=== PATIENT | female | born 1965 | race Caucasian/White ===

== ENCOUNTER 2021-08-19 10:35 | Emergency (ER) | payer BC, SELFPAY ==
--- NOTE | ~2021-08-19 | US_ITS ---
EXAMINATION:US venous doppler LE LT INDICATION:Left leg pain TECHNIQUE: Multiple grayscale, color flow and Doppler images of the left lower extremity deep venous systems were obtained and reviewed. COMPARISON:No prior studies for comparison. FINDINGS: The common femoral, superficial femoral and popliteal veins demonstrate normal respiratory variation, augmentation and compressibility. Color flow is also seen within the posterior tibial, pe roneal, greater saphenous and profunda veins. IMPRESSION: 1: No lower extremity deep venous thrombosis. Reviewed, dictated and finalized at location A.
--- NOTE | ~2021-08-19 | CT_ITS ---
EXAMINATION: CT abdomen pelvis wo con DATE: 08/19/2021 12:15 INDICATION: Suprapubic abdominal pain TECHNIQUE: Computed tomography (CT) of the abdomen and pelvis was performed without intravenous contr ast. The dose-length product was 362.40 mGy-cm. Automated exposure control and iterative reconstructi on technique were employed. COMPARISON: None. FINDINGS: There is calcified granuloma in the left lower lobe. Heart size normal. No significant pleu ral or pericardial effusion. There are calcified granulomas of the spleen. The liver, pancreas, adren al glands and kidneys are unremarkable. No renal/ureteral stones or hydronephrosis. Normal appendix. Nonobstructive bowel gas pattern. No significant vascular abnormality. No lymphadenopathy. There is a urachal remnant in the bladder. There is mild lumbar spondylosis. No free air or free fluid. IMPRESSION: 1. No acute abdominal abnormality. Reviewed, dictated and finalized at location A.
[2021-08-19 10:36] VITALS: BP 146/71; PULSE 96; RESP 18; TEMP 36.3; O2SAT 99
--- NOTE | 2021-08-19 10:49 | ED.GENADULT ---
HPI - General Adult General Chief complaint: Unspecified Stated complaint: woke up beet red, feel horrible Time Seen by Provider: 08/19/21 10:42 History of Present Illness HPI narrative: Patient is a 55-year-old female here for evaluation of a diffuse rash this morning. Patient states that she woke up and noted that her face, chest and back were diffusely red. The rash is not painful or or pruritic. Denies new soaps, detergents, medications, sick contacts, exposure to ticks or outdoors. Additionally, she feels fatigued, flushed and nauseous with some suprapubic abdominal pain which she describes as a cramp. Denies fevers, chills, vomiting. Patient did have spinal fusion procedure 10 days ago, had recent follow up and was told she was healing well. States she was supposed to have an ultrasound of the left lower extremity yesterday to rule out blood clot as she has been having some left calf cramping and pain, but the study was not completed due to scheduling issues. Patient is in menopause; denies history of hot flashes. She was previously taking hormone replacement therapy but stopped this a while ago. Related Data Home Medications Medication Instructions Recorded Confirmed losartan 50 mg tablet 50 mg PO DAILY 07/20/20 07/20/20 progesterone micronized 200 mg 200 mg PO QHS 07/20/20 07/20/20 capsule rosuvastatin 5 mg tablet 5 mg PO DAILY 07/20/20 07/20/20 Allergies Allergy/AdvReac Type Severity Reaction Status Date / Time meperidine [From Demerol] Allergy Unknown Unknown Verified 07/25/20 12:18 Review of Systems Review of Systems: Gen: Reports fatigue Eyes: Denies eye pain or visual change ENT: Denies congestion Respiratory: Denies shortness of breath or cough CV: Denies chest pain or palpitations GI: Reports nausea. reports abdominal pain, emesis or diarrhea : denies burning, urgency, frequency or hematuria Musculoskeletal: Denies back pain or muscle pain Neuro: Denies numbness, tingling, weakness or focal weakness Skin: Reports rash 10 point review of systems negative, other than as per history of present illness, past medical history and other positives and review of systems PMFSH Family History Family History Mother Hypertension Heart disease Cerebrovascular accident Sibling Ovarian cancer Grandparent Breast cancer Bone cancer Heart disease Cerebrovascular accident Grandparent Hypertension Thyroid disorder Social History Social History (System 07/25/20 @ 12:18 by Shelli Sierra) Smoking status: Current every day smoker Tobacco type: cigarettes Alcohol intake: never Substance use: current Exam Narrative: APPEARANCE: Uncomfortable appearing. EYES: EOMI HEENT: Normocephalic, atraumatic, OMM. No airway swelling. Dentures in place. RESPIRATORY: No respiratory distress Clear to auscultation bilaterally with no rhonchi wheezing or rales. CARDIOVASCULAR: Regular rate and rhythm without murmurs rubs or gallops. ABDOMINAL: Soft, nontender, nondistended, no rebound or guarding MUSCULOSKELETAL: Moves all extremities. No clubbing, cyanosis or edema. NEURO: Awake and alert. Following commands, speech normal, no focal deficits SKIN: Patient has a diffuse erythematous macular rash to face and trunk that blanches. Non-tender to palpation. Surgical site over anterior neck is well-healed. Bilateral arms have similar erythematous rash. Negative Nikolsky sign. PSYCHIATRIC: Normal affect/mood Course Vital Signs Vital signs: Vital Signs Temperature 97.3 F L 08/19/21 10:36 Pulse Rate 96 08/19/21 10:36 Respiratory Rate 18 08/19/21 10:36 Blood Pressure 146/71 H 08/19/21 10:36 Pulse Oximetry 99 08/19/21 10:36 Oxygen Delivery Room Air 08/19/21 10:36 Temperature 97.3 F L 08/19/21 10:36 Pulse Rate 72 08/19/21 13:43 Respiratory Rate 18 08/19/21 13:43 Blood Pressure 142/72 H 08/19/21 13:43 Pulse Oxime
[2021-08-19 11:06] LABS: Basophils Percent Auto 0.1 % (0.2-1.2); Eosinophils Percent Auto 0.3 % (0-4.4); Hematocrit 39.5 % (37.0-47.0); Hemoglobin 13.3 g/dL (12.0-15.0); Immature Granulocyte Absolute 0.07 K/mm3 (0.00-0.031); Immature Granulocyte Percent A 0.5 % (0-0.5); Lymphocytes Absolute Auto 4.41 K/mm3 (0.9-3.2); Lymphocytes Percent Auto 30.8 % (18.3-44.2); Mean Corpuscular HGB Conc 33.7 g/dl (32-36); Mean Corpuscular Hemoglobin 32.9 pg (26-34); Mean Corpuscular Volume 97.8 fl (80-100); Mean Platelet Volume 10.1 fl (7.4-10.4); Monocytes Absolute Auto 0.5 K/mm3 (0.1-0.6); Monocytes Percent Auto 3.4 % (2.6-8.5); Neutrophils Absolute Auto 9.3 K/mm3 (1.3-6.7); Neutrophils Percent Auto 64.9 % (45.5-73.1); Platelet Count Result 331 k/mm3 (150-375); Red Blood Count 4.04 M/mm3 (4.2-5.4); Red Cell Distribution Width 13.9 % (11.5-14.5); White Blood Count 14.3 K/mm3 (4.5-10.0)
[2021-08-19] MEDS: ONDANSETRON HCL ODT 4 MG TABLET PO (11:10)
[2021-08-19 11:13] LABS: Alanine Aminotransferase 13 U/L (6-35); Albumin Level 3.9 g/dL (3.5-5.1); Alkaline Phosphatase 84 U/L (38-126); Anion Gap 8 mmol/L (8-16); Aspartate Amino Transferase 17 U/L (14-36); Bilirubin,Total 0.2 mg/dL (0.2-1.3); Blood Urea Nitrogen 9 mg/dL (7-17); Calcium 8.9 mg/dL (8.4-10.2); Carbon Dioxide 24 mmol/L (22-30); Chloride 107 mmol/L (98-107); Estimated CRCL calculation 75 ml/min; Estimated Glomerular Filt Rate > 60; Glucose 134 mg/dL (65-110); Potassium 3.5 mmol/L (3.4-5.0); Sodium 139 mmol/L (137-145)
[2021-08-19 11:34] LABS: Lactic Acid Reflex 1.3 mmol/L (0.7-2.0)
[2021-08-19] MEDS: predniSONE 20 MG TABLET 60 MG PO (11:50)
[2021-08-19] MEDS: diphenhydrAMINE HCl CAP 25 MG CAPSULE 50 MG PO (11:51)
[2021-08-19] MEDS: KETOROLAC 30 MG/ML VIAL (*BKC) IM (12:48)
[2021-08-19 12:50] VITALS: BP 141/75; PULSE 65; RESP 18; O2SAT 96
[2021-08-19 13:43] VITALS: BP 142/72; PULSE 72; RESP 18; O2SAT 99
== END 2021-08-19 13:44 | disposition home or self-care (01) ==
PROVIDERS: Physician Assistant; Emergency Provider Emergency Medicine; PCP Physician Assistant
DX: T78.40XA Allergy, unspecified, initial encounter (principal); F17.210 Nicotine dependence, cigarettes, uncomplicated; R10.30 Lower abdominal pain, unspecified; R25.2 Cramp and spasm
CPT/HCPCS: 36415; 74176; 80053; 83605; 85025; 93971; 96372; 99284; A9270; J1885; J7512

== ENCOUNTER 2021-10-09 09:22 | Emergency (ER) | payer BC, OTHER, SELFPAY ==
[2021-10-09] VITALS (11 sets, daily range): BP systolic 111–142; BP diastolic 51–69; PULSE 59–91; RESP 14–18; TEMP 36.6; O2SAT 98–100
--- NOTE | ~2021-10-09 | US_ITS ---
EXAMINATION: US pelvic complete w TV DATE: 10/09/2021 14:32 INDICATION: Vaginal bleeding. Tumor. TECHNIQUE: Multiple transabdominal and endovaginal sonographic images of the pelvis were obtained. COMPARISON: None. FINDINGS: The uterus measures 10.3 x 5.7 x 6.2 cm. The endometrial complex measures 8-9 mm in thickness is wit hin normal limits for postmenopausal female with hormone replacement therapy. 5 mm anechoic myometria l cyst posterior to the endometrial complex at the right side of the uterine fundus there appears to be some heterogeneity to the surrounding myometrium and asymmetric thickening relative to the more an terior myometrium which could be related to focal adenomyomatosis or sequela of a reported endometria l biopsy a few months prior. There are approximately 5 anechoic nabothian cysts at the posterior cerv ix the largest measuring up to 10 mm in maximal diameter. The lateral ovaries are not visualized. The re is no free fluid in the pelvis. IMPRESSION: 1. Endometrial complex thickness of 8-9 mm which is within normal limits post hormone replacement the rapy. 2. 5 mm cyst near the endometrial/myometrial junction at the posterior right side of the fundus where there appears to be mild relative thickening and heterogeneous echogenicity relative to the juxtapos ed anterior myometrium which raises the possibility of either focal adenomyomatosis or sequela of ear lier endometrial biopsy. Reviewed, dictated and finalized at location A. IMPRESSION: 1. Endometrial complex thickness of 8-9 mm which is within normal limits post h ormone replacement therapy. 2. 5 mm cyst near the endometrial/myometrial junction at the posterior right si de of the fundus where there appears to be mild relative thickening and heterog eneous echogenicity relative to the juxtaposed anterior myometrium which raises the possibility of either focal adenomyomatosis or sequela of earlier endometr ial biopsy.
[2021-10-09 09:37] LABS: Basophils Percent Auto 0.4 % (0.2-1.2); Eosinophils Absolute Auto 0.1 K/mm3 (0-0.3); Eosinophils Percent Auto 1.4 % (0-4.4); Hematocrit 37.9 % (37.0-47.0); Hemoglobin 12.6 g/dL (12.0-15.0); Immature Granulocyte Absolute 0.03 K/mm3 (0.00-0.031); Immature Granulocyte Percent A 0.3 % (0-0.5); Lymphocytes Absolute Auto 3.24 K/mm3 (0.9-3.2); Lymphocytes Percent Auto 32.7 % (18.3-44.2); Mean Corpuscular HGB Conc 33.2 g/dl (32-36); Mean Corpuscular Hemoglobin 33.2 pg (26-34); Mean Corpuscular Volume 99.7 fl (80-100); Mean Platelet Volume 10.5 fl (7.4-10.4); Monocytes Absolute Auto 0.5 K/mm3 (0.1-0.6); Monocytes Percent Auto 4.6 % (2.6-8.5); Neutrophils Percent Auto 60.6 % (45.5-73.1); Platelet Count Result 202 k/mm3 (150-375); Red Cell Distribution Width 14.5 % (11.5-14.5); White Blood Count 9.9 K/mm3 (4.5-10.0)
[2021-10-09 10:08] LABS: Beta HCG Quantitative < 2.39 mIU/ML
--- NOTE | 2021-10-09 13:18 | ED.FEMALEGU ---
HPI - Female Genitourinary General Chief complaint: Vaginal Bleeding Stated complaint: irregular vag bleeding Time Seen by Provider: 10/09/21 12:09 Source: patient Mode of arrival: ambulatory Limitations: no limitations History of Present Illness HPI Narrative: 55 years old white female presented to the ED with severe vaginal bleeding with blood clots over the last 2 weeks. Patient was seen by an [facility] at [facility] July 30, endometrial biopsy was negative for malignancy. Currently patient on progesterone 200 mg nightly she denies any fever, chills, nausea, vomiting, chest pain, shortness of breath, or lightheadedness. Related Data Home Medications Medication Instructions Recorded Confirmed losartan 50 mg tablet 50 mg PO DAILY 07/20/20 07/20/20 progesterone micronized 200 mg 200 mg PO QHS 07/20/20 07/20/20 capsule rosuvastatin 5 mg tablet 5 mg PO DAILY 07/20/20 07/20/20 Allergies Allergy/AdvReac Type Severity Reaction Status Date / Time meperidine [From Demerol] Allergy Unknown Unknown Verified 07/25/20 12:18 Review of Systems Review of Systems: All systems reviewed & are unremarkable except as noted in HPI and below PMFSH Family History Family History Mother Hypertension Heart disease Cerebrovascular accident Sibling Ovarian cancer Grandparent Breast cancer Bone cancer Heart disease Cerebrovascular accident Grandparent Hypertension Thyroid disorder Social History Social History Smoking status: Current every day smoker Tobacco type: cigarettes Alcohol intake: never Substance use: current Exam Narrative: General appearance: Well-developed, well-nourished Skin: Normal color Chest and respiratory: Airway patent, no respiratory distress, no accessory muscle use Heart: Regular rate/rhythm Abdomen: Soft, nontender, no organomegaly, quiet bowel sounds Vascular: Normal peripheral pulses, normal capillary refill. Musculoskeletal: Normal range of motion, nontender back Neurologic: Alert and oriented ?3, WILDLIFE ECOLOGIST is normal as tested, no gross motor deficit : Speculum Exam - Cervix: Cervical os closed Bimanual Exam- Adnexa, other: no masses Other: Slight vaginal bleeding, no blood clots, 2 saturated long Q-tips was enough to dry the vaginal pouch Course Course Emergency Course: Patient is hemodynamically stable, feeling comfortable to go home, agreed with the plan to follow-up with Dr. Ayala as outpatient. Consultations Consultation #1: Dr. Ayala Start estradiol, 2 mg every day until she sees me next week. Date: 10/09/21 Time: 15:29 Vital Signs Vital signs: Vital Signs Temperature 36.6 C 10/09/21 09:24 Pulse Rate 91 10/09/21 09:24 Respiratory Rate 18 10/09/21 09:24 Blood Pressure 142/56 H 10/09/21 09:24 Pulse Oximetry 100 10/09/21 09:24 Oxygen Delivery Room Air 10/09/21 09:24 Temperature 36.6 C 10/09/21 09:24 Pulse Rate 91 10/09/21 09:24 Respiratory Rate 18 10/09/21 09:24 Blood Pressure 111/66 10/09/21 12:43 Pulse Oximetry 100 10/09/21 12:29 Oxygen Delivery Room Air 10/09/21 09:24 MDM - Female Genitourinary Differential Diagnosis Differential diagnosis: Likely other (Menorrhagia, uterine fibroid tumor, dysfunctional vaginal bleeding) Lab Data Result diagrams: 10/09/21 09:32 Labs: Lab Results 10/09/21 10/09/21 Range/Units 09:32 09:32 WBC 9.9 (4.5-10.0) K/mm3 RBC 3.80 L (4.2-5.4) M/mm3 Hgb 12.6 (12.0-15.0) g/dL Hct 37.9 (37.0-47.0) % MCV 99.7 (80-100) fl MCH 33.2 (26-34) pg MCHC 33.2 (
[2021-10-09] MEDS: SODIUM CHLORIDE 0.9% IV 1,000 ML 999 ML IV CONT (14:35)
== END 2021-10-09 15:35 | disposition home or self-care (01) ==
PROVIDERS: Emergency Medicine; Emergency Provider Emergency Medicine
DX: N93.8 Other specified abnormal uterine and vaginal bleeding (principal); F17.210 Nicotine dependence, cigarettes, uncomplicated
CPT/HCPCS: 36415; 76830; 76856; 84702; 85025; 96360; 99284; J7030

== ENCOUNTER 2021-12-06 05:42 | Observation (INO) | payer BC, OTHER, SELFPAY ==
[2021-12-06] VITALS (8 sets, daily range): BP systolic 128–150; BP diastolic 58–100; PULSE 58–88; RESP 14–20; TEMP 36.3–36.8; O2SAT 98–100; BMI 27.6
--- NOTE | ~2021-12-06 | CT_ITS ---
EXAMINATION: CT abdomen pelvis w con DATE: 12/06/2021 07:07 INDICATION: Low abdominal pain. TECHNIQUE: Computed tomography (CT) of the abdomen and pelvis was performed with 100 mL Omnipaque 350 intravenous contrast. Automated exposure control and iterative reconstruction technique were employe d. The dose-length product was 587.00 mGy-cm. COMPARISON: CT abdomen and pelvis 08/19/2021, pelvis ultrasound 10/09/21 FINDINGS: The visualized portions of the lung bases demonstrate mild atelectasis. A calcified left dayana ng nodule is consistent with old granulomatous disease. No pleural effusion. The heart size is normal . No pericardial effusion. The liver is normal. Calcifications in the spleen are consistent with old granulomatous disease. The gallbladder is absent. The pancreas and adrenal glands are normal. There a re cysts in the kidneys measuring up to 5 mm in the right. There is a rim-enhancing mass in the uteru s measuring 5.2 x 3.8 cm that involves the endometrial complex. The appendix is normal. There are no dilated loops of bowel. There are no pathologically enlarged lymph nodes. There is trace pelvic ascit es. There is moderate lumbar spondylosis. IMPRESSION: 1. 5.2 x 3.8 cm rim-enhancing mass in the uterus suspicious for abscess given the interval change and leukocytosis. The differential diagnosis also includes malignancy and fibroid. Reviewed, dictated and finalized at location A. IMPRESSION: 1. 5.2 x 3.8 cm rim-enhancing mass in the uterus suspicious for abscess given t he interval change and leukocytosis. The differential diagnosis also includes m alignancy and fibroid.
--- NOTE | ~2021-12-06 | CT_ITS ---
EXAMINATION: CT abdomen pelvis w con DATE: 12/07/2021 09:08 INDICATION: Uterine mass. TECHNIQUE: Computed tomography (CT) of the abdomen and pelvis was performed with 100 mL Omnipaque 350 intravenous contrast. Automated exposure control and iterative reconstruction technique were employe d. The dose-length product was 469.17 mGy-cm. COMPARISON: CT abdomen and pelvis 12/06/2021, 08/19/21, ultrasound 12/06/2021, 10/09/21 FINDINGS: The visualized portions of the lung bases demonstrate mild atelectasis. A calcified left dayana ng nodule is consistent with old granulomatous disease. No pleural effusion. The heart size is normal . No pericardial effusion. The liver is normal. Calcifications in the spleen are consistent with old granulomatous disease. The gallbladder is absent. The pancreas, adrenal glands, and left kidney are n ormal. There is a 6 mm cyst in right kidney. There are no dilated loops of bowel. The appendix is nor mal. There are no pathologically enlarged lymph nodes. There is physiologic fluid in the pelvis. Ther e is moderate stenosis of celiac axis secondary to median arcuate ligament compression. There is no s ignificant stenosis of superior mesenteric artery or the renal arteries. There is irregular thickenin g of the endometrial complex to 3.8 cm with improvement from 12/06/21, best evaluated when comparing t he sagittal CT images. On the ultrasound from 12/06/21, the endometrial complex was ill-defined in the uterine fundus and not measured at its thickest portion. There is moderate lumbar spondylosis. IMPRESSION: 1. Irregular thickening of the endometrial complex to 3.8 cm with improvement from 12/06/21. This find ing is most likely endometritis with interval passage of material through the cervix. Malignancy is n ot excluded. Reviewed, dictated and finalized at location A. IMPRESSION: 1. Irregular thickening of the endometrial complex to 3.8 cm with improvement f rom 12/06/21. This finding is most likely endometritis with interval passage of material through the cervix. Malignancy is not excluded.
--- NOTE | ~2021-12-06 | US_ITS ---
EXAMINATION: US pelvic complete w TV DATE: 12/06/2021 08:21 INDICATION: Pelvic mass Comparison:CT dated 12/06/2021 TECHNIQUE: Multiple transabdominal and endovaginal sonographic images of the pelvis performed. FINDINGS: The uterus measures 8.7 x 5.1 x 6.2 cm. The low-density mass appreciated on CT examination not definitely seen on the current study. Uterine myometrium is diffusely heterogeneous, likely due t o fibroid changes, although a discrete mass is not visualized. The endometrial complex measures 7 mm. There are multiple nabothian cysts. The ovaries are not visualized. No adnexal masses or fluid collections. There is no free fluid in the pelvis. There are no abnormal masses seen on either side. IMPRESSION: 1. Complex heterogeneous appearance to the uterine myometrium, likely related to underlying fibroid c hanges. No discrete abscess identified. Reviewed, dictated and finalized at location B. IMPRESSION: 1. Complex heterogeneous appearance to the uterine myometrium, likely related t o underlying fibroid changes. No discrete abscess identified.
--- NOTE | 2021-12-06 06:31 | ED.GENADULT ---
HPI - General Adult General Chief complaint: Abdominal Pain <Pedro Dotson MD - Last Filed: 12/06/21 07:04> Stated complaint: ABD PAIN <Pedro Dotson MD - Last Filed: 12/06/21 07:04> Time Seen by Provider: 12/06/21 06:03 <Pedro Dotson MD - Last Filed: 12/06/21 07:04> History of Present Illness HPI narrative: 56-year-old female with presented emerged department for evaluation of some lower abdominal pain. Patient states she often does have lower abdominal pain but the pain woke her up this morning. Patient states that she also felt itchy and flushed at the same time. Patient states that she was also having some shortness of breath. Patient does take testosterone and this was started approximately 5 weeks ago. Otherwise patient denies any new medications. Patient is scheduled for a total hysterectomy by Dr. Ayala on January 17 <Pedro Dotson MD - Last Filed: 12/06/21 07:04> Related Data Home medications: Home Medications Medication Instructions Recorded Confirmed losartan 50 mg tablet 50 mg PO DAILY 07/20/20 11/03/21 progesterone micronized 200 mg 200 mg PO QHS 07/20/20 11/03/21 capsule rosuvastatin 5 mg tablet 5 mg PO DAILY 07/20/20 11/03/21 amoxicillin 875 mg tablet 875 mg PO BID 11/03/21 11/03/21 esomeprazole magnesium 40 mg 40 mg PO DAILY 11/03/21 11/03/21 capsule,delayed release (Nexium) estradiol 1 mg-progesterone 100 mg 1 cap PO DAILY 11/03/21 11/03/21 capsule (Bijuva) ferrous sulfate 143 mg PO DAILY 11/03/21 11/03/21 valacyclovir 1 gram tablet 1,000 mg PO DAILY 11/03/21 11/03/21 <Pedro Dotson MD - Last Filed: 12/06/21 07:04> Allergies/adverse reactions: Allergies Allergy/AdvReac Type Severity Reaction Status Date / Time gabapentin Allergy Severe Anaphylactic Verified 11/03/21 15:09 Shock meperidine [From Demerol] Allergy Unknown Unknown Verified 07/25/20 12:18 <Pedro Dotson MD - Last Filed: 12/06/21 07:04> Review of Systems Review of Systems: CONSTITUTIONAL: flushed feeling EYES: Denies visual changes, redness, or discharge. ENT: Denies rhinorrhea, congestion, sore throat, or otalgia. CARDIOVASCULAR: Denies chest pain, palpitations, or edema. RESPIRATORY: Denies cough or dyspnea. GASTROINTESTINAL: Lower abdominal pain. GENITOURINARY: Denies dysuria or hematuria. SKIN: Itching and redness MUSCULOSKELETAL: Denies back pain, joint pain, or myalgia. NEUROLOGIC: Denies headache, numbness, or weakness. PSYCHIATRIC: Denies anxiety or depression. <Pedro Dotson MD - Last Filed: 12/06/21 07:04> [facility] Family History Family History: Family History Mother Hypertension Heart disease Cerebrovascular accident Sibling Ovarian cancer Grandparent Breast cancer Bone cancer Heart disease Cerebrovascular accident Grandparent Hypertension Thyroid disorder <Pedro Dotson MD - Last Filed: 12/06/21 07:04> Social History Social History: Social History Years smoked: 40 Smoking status: Current every day smoker Tobacco type: cigarettes Alcohol intake: never Substance use: current Substance use type: marijuana Other substance usage details: EDIBLES AND CBD OIL Spiritual care concerns: No <Pedro Dotson MD - Last Filed: 12/06/21 07:04> Exam Narrative: APPEARANCE: Well appearing, no pain, no distress, well-nourished. HEAD: normocephalic, atraumatic. EYES: PERRLA/EOMI, conjunctivae clear. NOSE: Normal no drainage NECK: Supple. No adenopathy, no masses. RESPIRATORY: Airway patent, minor wheezing on expiration. CARDIOVASCULAR: Regular rate and rhythm without murmurs rubs or gallops. ABDOMINAL: Soft, lower abdominal tenderness. MUSCULOSKELETAL: Moves all extremities. Strength/ROM intact, No edema, No calf tenderness. NEURO: Alert. Cranial nerves II through XII intact. Grossly intact SKIN: Warm,
[2021-12-06] MEDS: SODIUM CHLORIDE 0.9% IV 1,000 ML 999 ML IV CONT (06:44)
[2021-12-06] MEDS: HYDROmorphone HCL INJ (*CRX) 1 MG/ML SYR 0.5 MG IV PUSH (06:45)
[2021-12-06] MEDS: diphenhydrAMINE HCl INJ 50 MG/ML VIAL 25 MG IV PUSH ×2 (06:45→16:44)
[2021-12-06 06:46] LABS: Alanine Aminotransferase 17 U/L (6-35); Albumin Level 4.4 g/dL (3.5-5.1); Alkaline Phosphatase 76 U/L (38-126); Anion Gap 17 mmol/L (8-16); Aspartate Amino Transferase 22 U/L (14-36); Bilirubin,Total 0.2 mg/dL (0.2-1.3); Blood Urea Nitrogen 9 mg/dL (7-17); Calcium 8.8 mg/dL (8.4-10.2); Carbon Dioxide 20 mmol/L (22-30); Chloride 104 mmol/L (98-107); Estimated Glomerular Filt Rate > 60; Glucose 210 mg/dL (65-110); Potassium 3.8 mmol/L (3.4-5.0); Sodium 141 mmol/L (137-145)
[2021-12-06 06:51] LABS: Hematocrit 48.2 % (37.0-47.0); Hemoglobin 15.2 g/dL (12.0-15.0); Mean Corpuscular HGB Conc 31.5 g/dl (32-36); Mean Corpuscular Hemoglobin 32.3 pg (26-34); Mean Corpuscular Volume 102.6 fl (80-100); Mean Platelet Volume 11.2 fl (7.4-10.4); Platelet Count Result 333 k/mm3 (150-375); Red Cell Distribution Width 14.7 % (11.5-14.5); White Blood Count 15.1 K/mm3 (4.5-10.0)
[2021-12-06 06:52] LABS: Prothrombin Time 12.5 Seconds (11.1-14.7)
--- NOTE | 2021-12-06 07:02 | PCRCNOTE ---
0655 Pt in Cat Scan
[2021-12-06] MEDS: ALBUTEROL SULFATE NEB 2.5 MG/3 ML INH 5 MG INHALATION (07:07)
[2021-12-06 07:28] LABS: Atypical Lymphocytes Present; Giant Platelets Present; Large Platelets Present; Monocytes Absolute Manual 0.45 K/mm3 (0.1-0.90); Monocytes Percent Manual 3 % (3-9); Neutrophils Percent Manual 42 % (46-73); Platelet Estimate Adequate (Adequate); Total Cells Counted 100
[2021-12-06 07:29] LABS: Anisocytosis 2+ (NORMAL); Hypochromasia 1+ (NORMAL); Poikilocytosis 2+ (NORMAL)
[2021-12-06 07:30] LABS: Schistocytes None Seen (NORMAL)
[2021-12-06 08:13] LABS: Appearance Urine Clear (Clear); Bilirubin Urine Negative (Negative); Blood Urine Negative (Negative); Color Urine Yellow (Yellow); Glucose Urine UA Negative (Negative); Ketones Urine Negative (Negative); Leukocyte Esterase Ur Negative LEU/UL (Negative); Nitrate Urine Negative (Negative); Protein Urine Negative (Negative); Urobilinogen Urine 0.2 mg/dL (<2.0)
[2021-12-06 08:21] LABS: Add Urine Microscopic? NO
[2021-12-06 09:03] LABS: Lactic Acid Reflex 1.5 mmol/L (0.7-2.0)
[2021-12-06] MEDS: DOXYCYCLINE HYCLATE 100 MG TABLET PO ×2 (09:14→20:15)
[2021-12-06] MEDS: AMPICILLIN SULB 3 GM/NS 100 ML 3 GM/100 ML VIAL IVPB ×3 (09:14→20:14)
[2021-12-06] MEDS: SODIUM CHLORIDE 0.9% IV 1,000 ML 125 ML IV CONT ×2 (09:14→21:33)
[2021-12-06] MEDS: ONDANSETRON INJ 4 MG/2 ML VIAL 8 MG IV PUSH ×2 (11:23→21:20)
--- NOTE | 2021-12-06 13:06 | PM.IMHP ---
H&P: HPI History of Present Illness Date/Time: 12/06/21 13:06 Chief Complaint: Pelvic pain Narrative: this patient is a 56-year-old female with a fibroid uterus who presents to the ER with severe pelvic pain. She was examined there, cultured, evaluated. She was found to have possible necrotic fibroid abscess or Pyo myoma on CT scan. Ultrasound did not support this but did confirm the fibroid uterus with some changes in the fibroids. She has had a fever chills. She has had an elevated white count. She has had worsening pain. She could not move this morning when she called the ambulance. She denies any chest pain or shortness of breath. She she reports some nausea and vomiting. Review of Systems Review of Systems: All systems reviewed & are unremarkable except as noted in HPI and below Constitutional: Constitutional: Denies chills, Denies fatigue, Denies fever(s) and Denies weakness Eyes: Eyes: Denies blurry vision, Denies change in vision, Denies loss of peripheral vision, Denies loss of vision, Denies other visual disturbances and Denies eye pain ENT: Denies vertigo, Denies dizziness, Denies hearing loss, Denies mouth pain, Denies nasal obstruction, Denies neck mass and Denies neck pain Cardiovascular: Cardiovascular: Denies chest pain, Denies diaphoresis, Denies syncope, Denies leg edema and Denies dyspnea Respiratory: Respiratory: Denies chest congestion, Denies cough, Denies hemoptysis, Denies dyspnea and Denies wheezing Gastrointestinal: Gastrointestinal: Denies abdominal pain, Denies constipation, Denies diarrhea, Denies nausea and Denies vomiting Genitourinary: Genitourinary: Denies hematuria, Denies change in libido, Denies nocturia, Denies genital lesions, Denies flank pain and Denies urinary urgency Musculoskeletal: Musculoskeletal: Denies abnormal gait, Denies back pain, Denies myalgias, Denies arthralgias, Denies joint swelling, Denies muscle weakness and Denies neck pain Integumentary/Breasts: Skin/Breast: Denies swelling, Denies breast pain, Denies breast mass, Denies dry skin, Denies nipple discharge, Denies unusual bruising and Denies jaundice Neurologic: Denies Neuro-related abnormal movements, Denies Abnormal speech present, Denies abnormal gait, Denies behavioral changes, Denies confusion, Denies vertigo, Denies dizziness, Denies syncope, Denies loss of vision, Denies memory loss, Denies convulsions and Denies weakness Psychiatric: Psychiatric: Denies abnormal sleep pattern, Denies behavioral changes, Denies change in libido, Denies confusion, Denies depression, Denies anhedonia and Denies memory loss Endocrine: Endocrine: Reports no additional endocrine complaints, Denies change in libido and Denies fatigue Hematologic/Lymphatic: Hematologic/Lymphatic: Reports no additional hematologic/lymphatic complaints Allergic/Immunologic: Allergic/Immunologic: Reports no additional allergic/immunologic complaints and Denies wheezing PMFSH Family History Family History Mother Hypertension Heart disease Cerebrovascular accident Sibling Ovarian cancer Grandparent Breast cancer Bone cancer Heart disease Cerebrovascular accident Grandparent Hypertension Thyroid disorder Social History Social History Smoking packs per day: 0.5 Smoking cigarettes per day: 10.0 Years smoked: 40 Smoking pack-years: 20.00 Smoking status: Current every day smoker Tobacco type: cigarettes Second hand tobacco smoke exposure: Yes Alcohol intake: former Substance use: current Substance use type: marijuana Other substance usage details: EDIBLES AND CBD OIL Last use: 12/05/2021 Spiritual care concerns: No Meds Home Medications and Allergies Home Medications Medication Instructions Recorded Confirmed Type losartan 50 mg tablet 50 mg PO DAILY 07/20/20 11/03/21 History progesterone micronize
[2021-12-06] MEDS: KETOROLAC 30 MG/ML VIAL (*BKC) IV PUSH ×2 (13:18→20:14)
--- NOTE | 2021-12-06 15:18 | PM.IMCN ---
Assessment and Plan Assessment and plan (1) Abscess, uterine: Code(s): N71.9 - Inflammatory disease of uterus, unspecified Status: Acute Assessment and Plan: -OBGYN has already seen the patient. -Most likely this is a uterine fibroid. -The patient is scheduled to have a hysterectomy next month. -Continue with analgesics. The patient stated that she does not want to take fentanyl and would prefer to sick something orally triad at [place] for lesser pain. -The patient had a CT scan as mentioned above as well as an ultrasound. -continue with antibiotics prescribed ampicillin and doxycycline -blood and STD cultures are pending (2) HTN (hypertension), malignant: Code(s): I10 - Essential (primary) hypertension Status: Acute Assessment and Plan: -continue with losartan (3) Hyperlipidemia: Code(s): E78.5 - Hyperlipidemia, unspecified Status: Acute Assessment and Plan: -continue with rosuvastatin (4) Herpes simplex type 1 infection: Code(s): B00.9 - Herpesviral infection, unspecified Status: Acute Assessment and Plan: -continue with Valtrex (5) Anemia: Code(s): D64.9 - Anemia, unspecified Status: Acute Assessment and Plan: -patient has heavy periods and has been on ferrous sulfate -her H&H is now stable -monitor daily (6) GERD (gastroesophageal reflux disease): Code(s): K21.9 - Gastro-esophageal reflux disease without esophagitis Status: Acute Assessment and Plan: -continue with a PPI (7) Tobacco abuse: Code(s): Z72.0 - Tobacco use Status: Acute Assessment and Plan: -the patient has been offered a nicotine patch -p.r.n. albuterol for wheezing HPI Data of Consult Consult date: 12/06/21 Requesting Physician: Christian Ayala MD Primary Care Provider: PHYSICIAN NOT ON STAFF Consult Narrative Narrative: Alexandra Hicks is a 56 year old female patient who has a history of dysfunctional uterine bleeding. Today the patient was complaining of severe lower abdominal pain it started early this morning. She also felt short of breath. The patient has been going through menopause and has been receiving injections of testosterone as well as estrogen. The patient is scheduled for total hysterectomy by Dr. Ayala on January 17. Today her abdominal pelvis CT was read as 5.2 x 3.8 cm rim-enhancing mass in the uterus suspicious for abscess given the interval change and leukocytosis. The differential diagnosis also includes malignancy and fibroid. A pelvic transvaginal ultrasound was read as complex heterogeneous appearance to the uterine myometrium, likely related to underlying fibroid changes. No discrete abscess identified. Her white count is noted to be 15.1. Lactic 1.5. The patient was started on IV fluids, Dilaudid, Benadryl, albuterol nebulizer, doxycycline, and ampicillin. The patient is being admitted to observation status per Dr. Ayala. The hospitalist has been asked to consult for medical management on the date of service of 11/05/2021. Review of Systems Review of Systems: See HPI All systems reviewed & are unremarkable except as noted in HPI and below Constitutional: Constitutional: Reports as per HPI and Reports no additional constitutional complaints Eyes: Eyes: Reports as per HPI and Reports no additional eye complaints ENT: Reports system reviewed and no additional complaints, except as documented and Reports Normal hearing present Cardiovascular: Cardiovascular: Reports no additional cardiovascular complaints Respiratory: Respiratory: Reports no additional respiratory complaints and Reports no additional respiratory complaints Gastrointestinal: Gastrointestinal: Reports as per HPI and Reports no additional gastrointestinal complaints Musculoskeletal: Musculoskeletal: Reports no additional musculoskeletal complaints Integumentary/Breasts: Skin/Breast: Reports system reviewed and
[2021-12-06] MEDS: HYDROcodone/acetaminophen (*CRX) 5-325 MG TABLET 1 TAB PO (15:40)
[2021-12-06] MEDS: fentaNYL CITRATE INJ (*CRX) 100 MCG/2 ML VIAL 50 MCG IV PUSH ×2 (16:51→21:20)
[2021-12-06] MEDS: NICOTINE (*PBKC) 14 MG PATCH 1 PATCH TRANSDERM (17:24)
[2021-12-06] MEDS: LOSARTAN POTASSIUM 50 MG TABLET PO (17:24)
[2021-12-06] MEDS: PANTOPRAZOLE 40 MG TABLET PO (20:15)
[2021-12-07] MEDS: AMPICILLIN SULB 3 GM/NS 100 ML 3 GM/100 ML VIAL IVPB ×3 (02:17→14:23)
[2021-12-07] MEDS: KETOROLAC 30 MG/ML VIAL (*BKC) IV PUSH (02:19)
[2021-12-07 05:35] VITALS: BP 119/58; PULSE 64; RESP 14; TEMP 36.1; O2SAT 97
[2021-12-07] MEDS: SODIUM CHLORIDE 0.9% IV 1,000 ML 125 ML IV CONT (05:40)
[2021-12-07 06:29] LABS: Alanine Aminotransferase 12 U/L (6-35); Alkaline Phosphatase 56 U/L (38-126); Anion Gap 8 mmol/L (8-16); Aspartate Amino Transferase 20 U/L (14-36); Bilirubin,Total 0.4 mg/dL (0.2-1.3); Blood Urea Nitrogen 6 mg/dL (7-17); Calcium 7.5 mg/dL (8.4-10.2); Carbon Dioxide 22 mmol/L (22-30); Chloride 108 mmol/L (98-107); Estimated CRCL calculation 66 ml/min; Estimated Glomerular Filt Rate > 60; Glucose 101 mg/dL (65-110); Potassium 3.5 mmol/L (3.4-5.0); Sodium 138 mmol/L (137-145)
[2021-12-07 07:47] LABS: Basophils Percent Auto 0.4 % (0.2-1.2); Eosinophils Absolute Auto 0.1 K/mm3 (0-0.3); Hemoglobin 11.4 g/dL (12.0-15.0); Immature Granulocyte Absolute 0.03 K/mm3 (0.00-0.031); Immature Granulocyte Percent A 0.3 % (0-0.5); Lymphocytes Absolute Auto 3.05 K/mm3 (0.9-3.2); Lymphocytes Percent Auto 27.9 % (18.3-44.2); Mean Corpuscular HGB Conc 32.6 g/dl (32-36); Mean Corpuscular Hemoglobin 32.7 pg (26-34); Mean Corpuscular Volume 100.3 fl (80-100); Mean Platelet Volume 10.5 fl (7.4-10.4); Monocytes Absolute Auto 0.5 K/mm3 (0.1-0.6); Monocytes Percent Auto 4.7 % (2.6-8.5); Neutrophils Absolute Auto 7.2 K/mm3 (1.3-6.7); Neutrophils Percent Auto 65.7 % (45.5-73.1); Platelet Count Result 199 k/mm3 (150-375); Red Blood Count 3.49 M/mm3 (4.2-5.4); Red Cell Distribution Width 14.8 % (11.5-14.5); White Blood Count 10.9 K/mm3 (4.5-10.0)
--- NOTE | 2021-12-07 08:08 | PM.GYNPNOP ---
REHAB NURSE - A/P Assessment and plan (1) Abscess, uterine: Code(s): N71.9 - Inflammatory disease of uterus, unspecified Status: Acute Assessment and Plan: 56-year-old female with possible pelvic abscess, improved clinically however concerned about recurrence after discharge, adductor to be evaluated by Radiology for drain placement of the abscess, ultrasound did not support abscess presents, hopefully this will be at the discretion of the radiologists with a repeat CT. Could possibly discharge today with drain placement or otherwise. With discharge with pain medication and oral antibiotics. Short-term follow-up. (2) Pelvic pain: Code(s): R10.2 - Pelvic and perineal pain Status: Acute Time Spent With Patient Time: Total time spent is greater than 50% in coordination of care (as documented) at patient's floor/unit and/or counseling patient: Time with patient: 15 - 25 minutes REHAB NURSE- PN:Pattie Post-Op Subjective Date/time seen: 12/07/21 08:08 Improved pain, no perceived fever or chills. No nausea vomiting, no chest pain or shortness of breath Exam Const: General: cooperative, healthy appearing, comfortable and no acute distress; No confusion Orientation/consciousness: oriented to person, oriented to place, oriented to time and No confusion HENMT: Head: normal to inspection Ears: external ears normal General nose exam: Normal external nose present Face and sinus: normal facial exam Eyes: General: appearance normal, both eyes and all related structures Neck: Neck: normal visual inspection, trachea midline and supple Resp: Auscultation: clear to auscultation bilaterally, no crackles, no rales, no rhonchi and no wheezes Cardio: Rate: regular rate Rhythm: regular rhythm Heart sounds: no click, no murmurs and no rubs GI: GI Palp: No abdominal tenderness, No Soft to palpation, No Tenderness to palpation present (GI) and No Palpable mass present Auscultation: normal bowel sounds Skin: General skin exam: normal color and no rashes or lesions noted Neuro: General: oriented to person, oriented to place, oriented to time and No confusion Speech: No Abnormal speech present Extrem: General: normal to inspection, no joint enlargement, no clubbing, cyanosis or edema, no pedal edema and no calf tenderness Psych: Appearance: grossly normal Mental Status: mental status grossly normal Speech and movement: Normal speech and movement present REHAB NURSE - PN: Obj Data Vital Signs Vital Signs: Vital Signs - 24 hr 12/06/21 09:10 12/06/21 10:14 12/06/21 13:56 Temperature 98.2 F 98.0 F Pulse Rate 60 60 68 Respiratory Rate 18 20 20 Blood Pressure 128/58 L 137/71 150/75 H Pulse Oximetry 98 100 100 Oxygen Delivery 12/06/21 15:10 12/06/21 20:00 12/06/21 22:00 Temperature 97.4 F L Pulse Rate 59 L Respiratory Rate 14 Blood Pressure 142/64 H Pulse Oximetry 98 Oxygen Delivery Room Air Room Air 12/07/21 05:35 Temperature 96.9 F L Pulse Rate 64 Respiratory Rate 14 Blood Pressure 119/58 L Pulse Oximetry 97 Oxygen Delivery Intake/Output Intake/Output: Intake & Output 12/04/21 12/05/21 12/06/21 12/07/21 23:59 23:59 23:59 23:59 Intake Total 2790 1100 Output Total 800 400 Balance 1989 700 Meds/Results Medications: Active Medications Generic Name Dose Route Start Last Admin Trade Name Freq PRN Reason Stop Dose Admin Hydrocodone Bitart/Acetaminophen 1 tab 12/06/21 15:23 12/06/21 15:40 Hydrocodone/Acetaminophen (*Crx) 5-325 Mg Tablet PO 1 tab Q4H PRN Administration Pain Rated 4-6 Albuterol 2 puff 12/06/21 15:53 Albuterol Sulfate (*Sp) Aerosol 1 Puff INHALATION Q6HRT PRN Shortness Of Breath Diphenhydramine HCl 25 mg 12/06/21 13:30 12/06/21 16:44 Diphenhydramine Hcl Inj 50 Mg/Ml Vial IV PUSH 25 mg Q4H PRN Administration Itching Doxycycline Hyclate 100 mg 12/06/21 21:00 12/06/21 20:15 Doxycycline Hyclate 100 Mg Tablet
[2021-12-07] MEDS: FERROUS SULFATE DRIED 142 MG TABCR PO (08:40)
[2021-12-07] MEDS: estradioL 1 MG TABLET 2 MG PO (08:40)
[2021-12-07] MEDS: PANTOPRAZOLE 40 MG TABLET PO (08:41)
[2021-12-07] MEDS: LOSARTAN POTASSIUM 50 MG TABLET PO (08:41)
[2021-12-07] MEDS: DOXYCYCLINE HYCLATE 100 MG TABLET PO (08:41)
[2021-12-07] MEDS: valACYclovir HCL 500 MG TABLET 1000 MG PO (08:42)
--- NOTE | 2021-12-07 08:58 | PC.NURSE ---
patient transfer to CAT scan
[2021-12-07] MEDS: HYDROcodone/acetaminophen (*CRX) 5-325 MG TABLET 1 TAB PO (09:26)
[2021-12-07 14:00] VITALS: BP 125/56; PULSE 61; RESP 20; TEMP 36.1; O2SAT 94
--- NOTE | 2021-12-07 15:42 | PM.IMPN ---
Progress Note: A&P Assessment and Plan (1) Abscess, uterine: Code(s): N71.9 - Inflammatory disease of uterus, unspecified Status: Acute Assessment and Plan: Management by shoemaking cutter (2) HTN (hypertension), malignant: Code(s): I10 - Essential (primary) hypertension Status: Acute Assessment and Plan: -continue with losartan (3) Hyperlipidemia: Code(s): E78.5 - Hyperlipidemia, unspecified Status: Acute Assessment and Plan: -continue with rosuvastatin (4) Herpes simplex type 1 infection: Code(s): B00.9 - Herpesviral infection, unspecified Status: Acute Assessment and Plan: -continue with Valtrex (5) Anemia: Code(s): D64.9 - Anemia, unspecified Status: Acute Assessment and Plan: -patient has heavy periods and has been on ferrous sulfate -her H&H is now stable -monitor daily (6) GERD (gastroesophageal reflux disease): Code(s): K21.9 - Gastro-esophageal reflux disease without esophagitis Status: Acute Assessment and Plan: -continue with a PPI (7) Tobacco abuse: Code(s): Z72.0 - Tobacco use Status: Acute Assessment and Plan: -the patient has been offered a nicotine patch -p.r.n. albuterol for wheezing Plan DVT prophylaxis with SCDs GI prophylaxis not indicated Code status full code Subjective Date/time seen: 12/07/21 15:42 Interval history: No overnight events noted. No chest pain or shortness of breath. No nausea, vomiting or diarrhea. No fevers or chills. Review of Systems Review of Systems: 12 point review of systems was assessed and was negative except as noted in the HPI Exam Narrative: General: No acute distress, alert and oriented per baseline HEENT: Atraumatic, normocephalic, mucous membranes moist CV: Regular rate and rhythm, S1, S2 Lungs: Clear to auscultation bilaterally, no rales or crackles noted, no wheezes, good air entry Abdomen: Soft, nontender, nondistended Extremities: Normal to inspection Skin: No rashes noted, no lesions or wounds seen Psych: Euthymic, normal affect Objective Data Vital Signs Vital Signs: Vital Signs - 24 hr 12/06/21 20:00 12/06/21 22:00 12/07/21 05:35 Temperature 97.4 F L 96.9 F L Pulse Rate 59 L 64 Respiratory Rate 14 14 Blood Pressure 142/64 H 119/58 L Pulse Oximetry 98 97 Oxygen Delivery Room Air Intake/Output Intake/Output: Intake & Output 12/04/21 12/05/21 12/06/21 12/07/21 23:59 23:59 23:59 23:59 Intake Total 2790 1440 Output Total 800 400 Balance 1989 1040 Meds/Results Medications: Active Medications Generic Name Dose Route Start Last Admin Trade Name Freq PRN Reason Stop Dose Admin Hydrocodone Bitart/Acetaminophen 1 tab 12/06/21 15:23 12/07/21 09:26 Hydrocodone/Acetaminophen (*Crx) 5-325 Mg Tablet PO 1 tab Q4H PRN Administration Pain Rated 4-6 Albuterol 2 puff 12/06/21 15:53 Albuterol Sulfate (*Sp) Aerosol 1 Puff INHALATION Q6HRT PRN Shortness Of Breath Diphenhydramine HCl 25 mg 12/06/21 13:30 12/06/21 16:44 Diphenhydramine Hcl Inj 50 Mg/Ml Vial IV PUSH 25 mg Q4H PRN Administration Itching Doxycycline Hyclate 100 mg 12/06/21 21:00 12/07/21 08:41 Doxycycline Hyclate 100 Mg Tablet PO 100 mg Q12HR RUBIA Administration Estradiol 2 mg 12/07/21 09:00 12/07/21 08:40 Estradiol 1 Mg Tablet PO 2 mg QAM RUBIA Administration Fentanyl Citrate 50 mcg 12/06/21 13:03 12/06/21 21:20 Fentanyl Citrate Inj (*Crx) 100 Mcg/2 Ml Vial IV PUSH 50 mcg Q4H PRN Administration Breakthrough Pain Ferrous Sulfate 142 mg 12/07/21 08:00 12/07/21 08:40 Ferrous Sulfate Dried 142 Mg Tabcr PO 142 mg DAILY@0800 RUBIA Administration Sodium Chloride 1,000 mls @ 125 mls/hr 12/06/21 08:55 12/07/21 05:40 Normal Saline Iv IV CONT 125 mls/hr .Q8H RUBIA Administration Ampicillin Sodium/Sulbactam Sodium 3 gm in
--- NOTE | 2021-12-24 20:29 | PM.DS ---
DS: Admitting Diagnosis Discharge Date 12/07/21 Admitting Diagnosis pelvic pain DS: Summary Hospital Course Hospital Course: 56-year-old female admitted for pelvic pain. Question of a pelvic abscess. Repeat imaging suggested probably not. She was treated with IV antibiotics. She had elevated white count normal body temperature. She was observed and treated for approximately 36 hours. She was later discharged pain management oral antibiotics. Time Spent with Patient Time attestation: Total time spent providing and/or coordinating discharge services: Discharge Plan Discharge Consulting providers: Demetrice Dunaway ; Olga Adam ; Chago Grimes ; Dc Andersen V. Discharging Clinician: Christian Ayala Patient Disposition: Home, Self-Care Activity: pelvic rest Diet: regular Patient Instructions: Antibiotic Form, How to Stop Smoking (GEN), Abdominal Pain (DC) Stand Alone Forms: General Discharge Information Follow-up/Referrals: Christian Ayala MD [Physician] - Discharge Medications: New levofloxacin 500 mg tablet 500 mg PO DAILY Qty: 10 5RF estradiol 1 mg tablet 1 mg PO DAILY Qty: 30 12RF metronidazole 500 mg tablet 500 mg PO Q12H Qty: 20 0RF ondansetron 4 mg Film 4 mg PO Q6H PRN (Reason: Nausea) Qty: 25 0RF Continued rosuvastatin 5 mg tablet 5 mg PO DAILY losartan 50 mg tablet 50 mg PO DAILY valacyclovir 1 gram tablet 1,000 mg PO DAILY esomeprazole magnesium [Nexium] 40 mg Capsule,Delayed Release(Dr/Ec) 40 mg PO DAILY ferrous sulfate 47.5 mg iron Tablet Extended Release 143 mg PO DAILY No Action hydrocodone-acetaminophen 5-325 mg tablet 1 tablet PO Q6H PRN (Reason: Pain) hydrocodone-acetaminophen 5-325 mg tablet 1 tablet PO Q4H PRN (Reason: pain) Qty: 25 0RF Date of admission: 12/06/21 08:51 Primary Care Provider: PHYSICIAN NOT ON STAFF,NONSTAFF Admitting Provider: Christian Ayala Attending physician on admission: Christian Ayala Condition: Guarded Prognosis
== END 2021-12-07 15:50 | disposition home or self-care (01) ==
LOC: ANHED 09:06 → ANH3MEDSUR 09:31
PROVIDERS: Emergency Medicine; Admitting Provider Obstetrics & Gynecology; Emergency Provider Emergency Medicine; Visit Provider Obstetrics & Gynecology
DX: N71.9 Inflammatory disease of uterus, unspecified (principal); I10 Essential (primary) hypertension; E78.5 Hyperlipidemia, unspecified; B00.9 Herpesviral infection, unspecified; D64.9 Anemia, unspecified; K21.9 Gastro-esophageal reflux disease without esophagitis; F17.210 Nicotine dependence, cigarettes, uncomplicated; R06.02 Shortness of breath; R10.2 Pelvic and perineal pain; D72.829 Elevated white blood cell count, unspecified; Z90.722 Acquired absence of ovaries, bilateral; F12.90 Cannabis use, unspecified, uncomplicated; Z79.890 Hormone replacement therapy; Z87.42 Personal history of other diseases of the female genital tract; Z79.899 Other long term (current) drug therapy; Z80.41 Family history of malignant neoplasm of ovary; Z83.49 Family history of other endocrine, nutritional and metabolic diseases; Z82.49 Family history of ischemic heart disease and other diseases of the circulatory system; Z80.3 Family history of malignant neoplasm of breast; Z80.8 Family history of malignant neoplasm of other organs or systems; Z84.89 Family history of other specified conditions
CPT/HCPCS: 36415; 74177; 76830; 76856; 80053; 81003; 83605; 85025; 85610; 85730; 87040; 87070; 87491; 87591; 87808; 94640; 96361; 96365; 96366; 96374; 96375; 96376; 99285; A9270; G0378; J0295; J1170; J1200; J1885; J2405; J3010; J7030; Q9967

== ENCOUNTER 2021-12-15 12:49 | Outpatient (CLI) | payer BC, OTHER, SELFPAY ==
--- NOTE | 2021-12-15 13:05 | ECG_ITS ---
Measurements Intervals [place] Rate: 74 P: 63 SC: 135 QRS: 15 QRSD: 80 T: 35 QT: 409 QTc: 455 Interpretive Statements SINUS RHYTHM POSSIBLE LEFT ATRIAL ENLARGEMENT [-0.1mV P WAVE IN V1/V2] OTHERWISE UNREMARKABLE ECG NO PREVIOUS ECG AVAILABLE FOR COMPARISON Electronically Signed On 12-15-2021 13:56:59 CDT by Ulises Fox M.D.
[2021-12-15 13:32] LABS: Basophils Percent Auto 0.4 % (0.2-1.2); Eosinophils Absolute Auto 0.1 K/mm3 (0-0.3); Eosinophils Percent Auto 0.5 % (0-4.4); Hemoglobin 13.6 g/dL (12.0-15.0); Immature Granulocyte Absolute 0.06 K/mm3 (0.00-0.031); Immature Granulocyte Percent A 0.5 % (0-0.5); Lymphocytes Absolute Auto 3.13 K/mm3 (0.9-3.2); Lymphocytes Percent Auto 27.9 % (18.3-44.2); Mean Corpuscular HGB Conc 32.4 g/dl (32-36); Mean Corpuscular Hemoglobin 32.9 pg (26-34); Mean Corpuscular Volume 101.4 fl (80-100); Mean Platelet Volume 10.4 fl (7.4-10.4); Monocytes Absolute Auto 0.6 K/mm3 (0.1-0.6); Monocytes Percent Auto 5.5 % (2.6-8.5); Neutrophils Absolute Auto 7.3 K/mm3 (1.3-6.7); Neutrophils Percent Auto 65.2 % (45.5-73.1); Platelet Count Result 264 k/mm3 (150-375); Red Blood Count 4.14 M/mm3 (4.2-5.4); Red Cell Distribution Width 14.7 % (11.5-14.5); White Blood Count 11.2 K/mm3 (4.5-10.0)
[2021-12-15 13:42] LABS: Alanine Aminotransferase 15 U/L (6-35); Albumin Level 4.4 g/dL (3.5-5.1); Alkaline Phosphatase 57 U/L (38-126); Anion Gap 12 mmol/L (8-16); Aspartate Amino Transferase 21 U/L (14-36); Bilirubin,Total 0.3 mg/dL (0.2-1.3); Blood Urea Nitrogen 9 mg/dL (7-17); Calcium 8.7 mg/dL (8.4-10.2); Carbon Dioxide 25 mmol/L (22-30); Chloride 103 mmol/L (98-107); Estimated Glomerular Filt Rate > 60; Glucose 106 mg/dL (65-110); Potassium 3.9 mmol/L (3.4-5.0); Sodium 140 mmol/L (137-145)
== END 2021-12-15 12:50 | disposition home or self-care (01) ==
LOC: ANHSURGERY 12:58
PROVIDERS: Visit Provider Obstetrics & Gynecology
DX: N95.0 Postmenopausal bleeding (principal); I10 Essential (primary) hypertension; Z01.818 Encounter for other preprocedural examination
CPT/HCPCS: 36415; 80053; 85025; 86850; 86900; 86901; 93005

== ENCOUNTER 2021-12-20 01:18 | Day surgery (SDC) | payer BC, OTHER, SELFPAY ==
[2021-11-03 14:46] VITALS: BMI 27.3
--- NOTE | 2021-11-03 15:30 | PC.NURSE ---
Report to the Outpatient Waiting Room, entrance under the green pavilion located off [facility], at time _0830 on date 11/15/21 . OR Time:1030 . WE WILL CALL ON Sat11/14/21 AFTERNOON IF YOUR SURGERY TIME IS ADJUSTED - You and your visitor will be asked to self-screen and do not enter if you have any COVID symptoms. - Only one visitor and NO children visitors are allowed at this time. - The patient visitor is requested to leave or wait in car when not with patient due to restrictions. - A mask is required within the hospital. Patients may have clear liquids (water, carbonated beverages, clear teas, apple juice) until 3 hours prior to surgery with a maximum of 20 ounces. - No food from midnight until time of surgery - Take the following medications with a SIP of water the morning of surgery: _LOSARTAN; IF STILL ON ANTIBIOTIC TAKE ALSO Medications to discontinue per physician N/A Date to take last dose____N/A Please no make-up, nail azeri, hairspray, perfume, deodorant, or body powder the day of surgery. No jewelry (including any body piercings) or valuables the day of surgery, leave them at home. Please take a shower or bath the night before, or the morning of, surgery with an antibacterial soap. Wear comfortable, loose fitting clothing. Children are encouraged to wear pajamas. - Jewelry must be removed prior to entering the operating room. Rings and piercings that are not removed may be cut off. - The hospital will not accept responsibility for valuables. - Please leave all valuables, including medications, at home the day of surgery. If you are going home after surgery, a licensed [employer] hazmat company driver must drive you home. - NO public transportation without another adult. - We recommend that an adult stay with you for 24 hours following discharge. - We also recommend that you do not drive, make important decision, drink alcoholic beverages, or take any drugs that were not prescribed by your health care provider for at least 24 hours after your discharge time. Follow any additional instructions given to you from your surgeon. If you or anyone in your household have experienced Covid symptoms in the past week, please notify your surgeon or the nurse liaison at the phone number below for possible testing. Telephone instructions given to ARACELI and asked if any additional questions and then verbalized understanding. Patient advised to call surgeon office or pre surgery nurse liaison [phone] if any additional questions.
[2021-12-14 14:42] VITALS: BMI 27.3
--- NOTE | 2021-12-14 14:53 | PC.NURSE ---
Report to the Outpatient Waiting Room, entrance under the green pavilion located off [facility], at time 9:30 on date 12/20/21. OR Time: 11:30. Time changes happen often and if your time is changed the preop area will call you the afternoon before. - You and your visitor will be asked to self-screen and do not enter if you have any COVID symptoms. - We encourage only one visitor and NO visitors under age 16 are allowed at this time. Your visitor will receive communication by the phone number that is given day of service. VISITING HOURS 8AM-8PM, 2 VISITORS AT A TIME - The patient visitor is requested to social distance or may leave the building when not with patient due to restrictions. - A mask is required within the hospital. Patients may have clear liquids (water, carbonated beverages, clear teas, apple juice) until 3 hours prior to surgery (8:30) with a maximum of 20 ounces. - No food from midnight until time of surgery Take the following medications with a SIP of water the morning of surgery: PAIN PILL IF NEEDED, ANTIBIOTICS, VALACYCLOVIR Medications to discontinue per physician: VITAMINS/SUPPLEMENTS Date to take last dose: 12/16/21 Please no make-up, nail korean, hairspray, perfume, deodorant, or body powder the day of surgery. No jewelry (including any body piercings) or valuables the day of surgery, leave them at home. Please take a shower or bath the night before, or the morning of, surgery with an antibacterial soap. Wear comfortable, loose fitting clothing. - Jewelry must be removed prior to entering the operating room. Rings and piercings that are not removed may be cut off. - The hospital will not accept responsibility for valuables. - Please leave all valuables, including medications, at home the day of surgery. If you are going home after surgery, a licensed commercial truck driver must drive you home. - NO public transportation without another adult. - We recommend that an adult stay with you for 24 hours following discharge. - We also recommend that you do not drive, make important decision, drink alcoholic beverages, or take any drugs that were not prescribed by your health care provider for at least 24 hours after your discharge time. Follow any additional instructions given to you from your surgeon. If you or anyone in your household have experienced Covid symptoms in the past week, please notify your surgeon or the nurse liaison at the phone number below for possible testing. Telephone instructions given to PT - ANY ALMONTE and asked if any additional questions and then verbalized understanding. Patient advised to call surgeon office or pre surgery nurse liaison [phone] if any additional questions.
[2021-12-20] VITALS (14 sets, daily range): BP systolic 104–148; BP diastolic 55–75; PULSE 57–81; RESP 11–18; TEMP 36.5–37.1; O2SAT 98–100
[2021-12-20] MEDS: LACTATED RINGERS 1,000 ML 30 ML IV CONT ×2 (10:12→13:57)
[2021-12-20] MEDS: KETOROLAC 15 MG/ML VIAL (*BKC) IV PUSH (10:16)
[2021-12-20] MEDS: ACETAMINOPHEN 500 MG TABLET 1000 MG PO (10:17)
--- NOTE | 2021-12-20 10:49 | WPDANESEPPF ---
Anes - Initial Pre Proc Eval Procedure: Operation Date: 12/20/21 11:30 Proposed Procedures p Total Laparoscopic Hysterectomy with Bilateral Salpingo-oophorectomy - Christian Ayala MD Date/Time: 12/20/21 10:49 Surgeon: Christian Ayala MD Pre Op Diagnosis: Menorrhagia Patient Data Age: 56 Gender: F Height: 1.6 m Weight: 70.2 kg Last Vital Signs Temp 37.1 C 12/20/21 09:41 Pulse 81 12/20/21 09:41 Resp 16 12/20/21 09:41 BP 118/61 12/20/21 09:41 Pulse Ox 100 12/20/21 09:41 O2 Del Method Room Air 12/20/21 09:41 Allergies Allergy/AdvReac Type Severity Reaction Status Date / Time gabapentin Allergy Severe Anaphylactic Verified 12/20/21 09:44 Shock meperidine [From Demerol] Allergy Unknown Hives Verified 12/20/21 09:44 Home Medications Medication Instructions Recorded Confirmed Type losartan 50 mg tablet 50 mg PO DAILY 07/20/20 12/20/21 History progesterone micronized 200 mg 200 mg PO QHS 07/20/20 12/20/21 History capsule rosuvastatin 5 mg tablet 5 mg PO DAILY 07/20/20 12/20/21 History esomeprazole magnesium 40 mg 40 mg PO DAILY 11/03/21 12/20/21 History capsule,delayed release (Nexium) ferrous sulfate 143 mg PO DAILY 11/03/21 12/20/21 History valacyclovir 1 gram tablet 1,000 mg PO DAILY 11/03/21 12/20/21 History estradiol 1 mg tablet 1 mg PO DAILY #30 tabs 12/07/21 12/20/21 Rx levofloxacin 500 mg tablet 500 mg PO DAILY #10 tabs 12/07/21 12/20/21 Rx metronidazole 500 mg tablet 500 mg PO Q12H #20 tabs 12/07/21 12/20/21 Rx ondansetron 4 mg oral soluble film 4 mg PO Q6H PRN Nausea #25 ea 12/07/21 12/20/21 Rx hydrocodone 5 mg-acetaminophen 325 1 tablet PO Q6H PRN Pain 12/14/21 12/20/21 History mg tablet Patient hx anesthesia problems: none Family hx anesthesia problems: none Results Review: All pre-operative results and documents have been reviewed as part of the pre-operative evaluation. [facility] Past Medical History Medical History (Updated 12/06/21 @ 15:54 by Olga Adam NP) Anemia Herpes simplex type 1 infection HTN (hypertension), malignant Hyperlipidemia Tobacco abuse Surgical History Surgical History H/O hand surgery H/O neck surgery C3 through C7 H/O oophorectomy H/O umbilical hernia repair Hx of cholecystectomy Family History Family History Mother Hypertension Heart disease Cerebrovascular accident Sibling Ovarian cancer Grandparent Breast cancer Bone cancer Heart disease Cerebrovascular accident Grandparent Hypertension Thyroid disorder Social History Social History Social History: The patient lives home alone. She is in the middle of getting a divorce. She is not currently working. She has 2 children. Patient uses edible marijuana and CBD oil. The patient smokes a half a pack of cigarettes daily. She rarely drinks alcohol. She does not have a durable power attorney at law for healthcare. Code status full code Smoking packs per day: 0.5 Smoking cigarettes per day: 10.0 Years smoked: 40 Smoking pack-years: 20.00 Smoking status: Current every day smoker Tobacco type: cigarettes Second hand tobacco smoke exposure: Yes Alcohol intake: former Drinks per week: 2 Substance use: current Substance use type: marijuana Last use: 12/05/2021 Living arrangements: with family Spiritual care concerns: No Anes - Eval Final PreProcedure Day of Procedure 12/20/21 10:49 Patient weight: overweight Heart: regular rate and rhythm Lungs: clear to auscultation Airway: Mallampati scale class II, special considerations poor extension and other (recent ACD) Neurological: alert and oriented Last oral intake: >/= 8 hours ASA classification: III Emergent: no Anesthetic plan: proceed Anesthesia type and monitoring: general ETT and standard monitoring
--- NOTE | 2021-12-20 11:44 | WPDHPUPDATE1 ---
History and Physical Update Update Date/Time: 12/20/21 11:44 History and Physical has been reviewed, including an updated exam of the patient. There are NO changes in the patient's condition. Risks, benefits, and alternatives have been discussed and questions answered. Patient agrees to proceed with procedure.
--- NOTE | 2021-12-20 11:50 | PM.IMHP ---
H&P: HPI History of Present Illness Date/Time: 12/20/21 11:50 Chief Complaint: Severe menorrhagia Narrative: This patient is a 56-year-old female with severe menorrhagia and severe pelvic pain. We have agreed to perform total laparoscopic hysterectomy bilateral salpingo-oophorectomy. She understands the risks. She understands that injuries may occur. She understands injury may result in hospitalization, more surgery, and severe illness. She understands the risk of hemorrhage and infection. Review of Systems Review of Systems: All systems reviewed & are unremarkable except as noted in HPI and below Constitutional: Constitutional: Denies chills, Denies fatigue, Denies fever(s) and Denies weakness Eyes: Eyes: Denies blurry vision, Denies change in vision, Denies loss of peripheral vision, Denies loss of vision, Denies other visual disturbances and Denies eye pain ENT: Denies vertigo, Denies dizziness, Denies hearing loss, Denies mouth pain, Denies nasal obstruction, Denies neck mass and Denies neck pain Cardiovascular: Cardiovascular: Denies chest pain, Denies diaphoresis, Denies syncope, Denies leg edema and Denies dyspnea Respiratory: Respiratory: Denies chest congestion, Denies cough, Denies hemoptysis, Denies dyspnea and Denies wheezing Gastrointestinal: Gastrointestinal: Denies abdominal pain, Denies constipation, Denies diarrhea, Denies nausea and Denies vomiting Genitourinary: Genitourinary: Denies hematuria, Denies change in libido, Denies nocturia, Denies genital lesions, Denies flank pain and Denies urinary urgency Musculoskeletal: Musculoskeletal: Denies abnormal gait, Denies back pain, Denies myalgias, Denies arthralgias, Denies joint swelling, Denies muscle weakness and Denies neck pain Integumentary/Breasts: Skin/Breast: Denies swelling, Denies breast pain, Denies breast mass, Denies dry skin, Denies nipple discharge, Denies unusual bruising and Denies jaundice Neurologic: Denies Neuro-related abnormal movements, Denies Abnormal speech present, Denies abnormal gait, Denies behavioral changes, Denies confusion, Denies vertigo, Denies dizziness, Denies syncope, Denies loss of vision, Denies memory loss, Denies convulsions and Denies weakness Psychiatric: Psychiatric: Denies abnormal sleep pattern, Denies behavioral changes, Denies change in libido, Denies confusion, Denies depression, Denies anhedonia and Denies memory loss Endocrine: Endocrine: Reports no additional endocrine complaints, Denies change in libido and Denies fatigue Hematologic/Lymphatic: Hematologic/Lymphatic: Reports no additional hematologic/lymphatic complaints Allergic/Immunologic: Allergic/Immunologic: Reports no additional allergic/immunologic complaints and Denies wheezing PMFSH Past Medical History Medical History (Updated 12/20/21 @ 11:51 by Christian Ayala MD) Anemia Herpes simplex type 1 infection HTN (hypertension), malignant Hyperlipidemia Tobacco abuse Surgical History Surgical History H/O hand surgery H/O neck surgery C3 through C7 H/O oophorectomy H/O umbilical hernia repair Hx of cholecystectomy Family History Family History Mother Hypertension Heart disease Cerebrovascular accident Sibling Ovarian cancer Grandparent Breast cancer Bone cancer Heart disease Cerebrovascular accident Grandparent Hypertension Thyroid disorder Social History Social History Social History: The patient lives home alone. She is in the middle of getting a divorce. She is not currently working. She has 2 children. Patient uses edible marijuana and CBD oil. The patient smokes a half a pack of cigarettes daily. She rarely drinks alcohol. She does not have a durable power commonwealth attorney for healthcare. Code status full code Smoking packs per day: 0.5 Smoking cigarettes
--- NOTE | 2021-12-20 12:31 | W.PM.PROC2 ---
Procedure Note - Detailed Date of Procedure 12/20/21 Pre-op Diagnosis Menorrhagia, pelvic pain Post-op Diagnosis Same Procedure Performed Total laparoscopic hysterectomy and bilateral salpingo-oophorectomy. Surgeon Christian Ayala MD Anesthesia General Indications menorrhagia, pain Findings enlarged fibroid uterus, absent left ovary and fallopian tube. Normal right tube and ovary. Description of Procedure This patient was taken to the operating room. She was prepped and draped in the dorsal lithotomy position after induction of general anesthesia. The uterine manipulator and Jeremiah cup were placed. This was done with a speculum and tenaculum. The speculum was placed. The cervix was grasped with a tenaculum. The stay sutures were placed at 3 and 9:00 a.m.. The stay sutures of 0 Vicryl were brought through the appropriately sized Jeremiah cup. The tip of the CHRISTIN manipulator was placed in the intrauterine cavity. The cup was slid into place around the cervix and into the fornices. It was locked into place. The sutures were then wrapped around the handle and tied under tension. A 5 mm skin incision was made in the left upper quadrant the abdomen. A 5 mm trocar was inserted into the intrauterine cavity under direct visualization of the scope. Pneumoperitoneum was achieved. A left lower quadrant 11 mm incision was made with scalpel. An 11 mm trocar was inserted into the anterior abdominal cavity under direct visualization the scope. A 5 mm infraumbilical incision was made with a scalpel and a 5 mm trocar was inserted the intra-abdominal cavity under direct visualization of the scope. Bilateral ureteral lysis was performed. This was done from the pelvic brim down to the uterine artery. This was done with careful dissection using sharp and blunt dissection. The infundibulopelvic ligaments were isolated after identification of the ureters bilaterally. These infundibulopelvic ligaments were cauterized and transected with LigaSure cautery. The para ovarian tissue was cauterized and transected with LigaSure cautery bilaterally. Moving around the ovary into the broad ligament the tissue was cauterized transected with LigaSure cautery. The round ligaments were cauterized transected with LigaSure cautery this was all done in a bilateral fashion. In a stepwise fashion along the lateral aspects of the uterus the round ligament and broad ligaments were cauterized transected down to the level of the uterine arteries. A bladder flap was created in the bladder was moved distally to the end of the cervix and over the Jeremiah cup. The bilateral uterine arteries were cauterized and transected. Colpotomy was then performed. In a circumferential fashion the vagina was transected using unipolar cautery. The incision was made down on the Jeremiah cup. The uterus, cervix, fallopian tubes and ovaries were taken out through the vagina. A pneumo occluder was placed in the vagina. The vaginal cuff was closed with a 0 V lock suture in a running fashion. The pelvis was irrigated with copious amounts antibiotic irrigation. The ureters were again examined and found to be intact and flowing freely under the uterine arteries into the bladder. The bladder was intact. It was examined directly. The vagina was irrigated with Betadine solution after removal of the Pneumo occluder. The patient was taken to recovery room. She was stable condition. Sponge lap and needle counts were correct x2. Estimated Blood Loss 75 Drains Yes Packing No Pathology Yes Complications No immediate complications Condition Stable Disposition Floor
[2021-12-20] MEDS: ceFAZolin 2 GM/D5W 50 ML 2 GM/50 ML BAG IVPB (12:42)
[2021-12-20] MEDS: ceFAZolin SODIUM 1 GM VIAL (13:04)
[2021-12-20] MEDS: fentaNYL CITRATE INJ (*CRX) 100 MCG/2 ML VIAL 25 MCG IV PUSH ×4 (14:35→14:53)
[2021-12-20] MEDS: HYDROmorphone HCL INJ (*CRX) 1 MG/ML SYR 0.5 MG IV PUSH ×2 (15:18→15:43)
--- NOTE | 2021-12-20 16:18 | SUR.PHASEI ---
This RN tried to call floor for report and RN has to call back.
--- NOTE | 2021-12-20 16:32 | PC.NURSE ---
Patient transferred to post room # via ( 289 ). Support person present. Oriented to unit, room, information board, rooming in, admission packet and security measures. Patient verbalizes understanding.
[2021-12-20] MEDS: DEXTROSE 5%/0.45% SOD CHL 1,000 ML 125 ML IV CONT (16:58)
[2021-12-20] MEDS: HYDROcodone/acetaminophen (*CRX) 10-325 MG TABLET 1 TAB PO ×2 (17:02→20:54)
[2021-12-20] MEDS: metroNIDAZOLE 250 MG TABLET 500 MG PO (17:09)
[2021-12-20] MEDS: KETOROLAC 30 MG/ML VIAL (*BKC) IV PUSH (19:02)
[2021-12-20] MEDS: SIMETHICONE 80 MG TAB.CHEW (20:54)
[2021-12-20] MEDS: SIMETHICONE 80 MG TAB.CHEW PO (22:26)
[2021-12-21] MEDS: SIMETHICONE 80 MG TAB.CHEW PO ×5 (00:45→11:10)
[2021-12-21] MEDS: HYDROcodone/acetaminophen (*CRX) 10-325 MG TABLET 1 TAB PO ×3 (00:45→09:22)
[2021-12-21] MEDS: ONDANSETRON INJ 4 MG/2 ML VIAL IV PUSH (00:45)
[2021-12-21 00:50] VITALS: BP 115/70; PULSE 74; RESP 18; TEMP 36.5; O2SAT 99
[2021-12-21] MEDS: DOCUSATE SODIUM 100 MG CAPSULE (00:53)
[2021-12-21] MEDS: metroNIDAZOLE 250 MG TABLET 500 MG PO (05:09)
[2021-12-21 05:10] VITALS: BP 110/63; PULSE 66; RESP 18; TEMP 36.6; O2SAT 99
[2021-12-21] MEDS: KETOROLAC 30 MG/ML VIAL (*BKC) IV PUSH (05:10)
[2021-12-21] MEDS: levoFLOXacin 500 MG TABLET PO (07:31)
[2021-12-21] MEDS: LOSARTAN POTASSIUM 50 MG TABLET PO (07:31)
[2021-12-21] MEDS: DOCUSATE SODIUM 100 MG CAPSULE PO (07:31)
[2021-12-21] MEDS: HYDROmorphone HCL INJ (*CRX) 1 MG/ML SYR 0.5 MG IV PUSH (08:02)
--- NOTE | 2021-12-21 08:03 | WPDANESPN ---
Anes - Prog Note Post-Op Date/Time: 12/21/21 08:03 Vital Signs: Last Vital Signs Temp 36.6 C 12/21/21 05:10 Pulse 66 12/21/21 05:10 Resp 18 12/21/21 05:10 BP 110/63 12/21/21 05:10 Pulse Ox 99 12/21/21 05:10 O2 Del Method Room Air 12/21/21 05:10 O2 Flow Rate 8 12/20/21 14:25 Pain Score (VAS): kasey c/o 8/10 pain. One time dose of 0.5 mg dilaudid ordered I/O: Intake & Output 12/20/21 12/21/21 12/21/21 23:59 07:59 15:59 Intake Total 1000 Output Total 740 Balance -740 1000 Patient Feedback: Patient satisfied with anesthetic care.
[2021-12-21 08:20] VITALS: BP 144/65; PULSE 69; RESP 16; TEMP 36.9; O2SAT 99
--- NOTE | 2021-12-21 08:24 | PM.GYNPNOP ---
SALES LEAD - A/P Postoperative Procedures: Procedures Operation Date: 12/20/21 11:30 Actual Procedure Side Surgeon p Total Laparoscopic Hysterectomy with Right Salpingo-oophorectomy Bilateral Christian Ayala MD Postoperative day: 1 Postoperative status: doing well Postoperative plan: see orders Time Spent With Patient Time: Total time spent is greater than 50% in coordination of care (as documented) at patient's floor/unit and/or counseling patient: Time with patient: less than 15 minutes SALES LEAD- PN:Subj Post-Op Subjective Date/time seen: 12/21/21 08:24 Subjective: patient reports feeling better, patient has no complaints and pain is well controlled Exam Const: General: healthy appearing, comfortable and no acute distress Resp: Auscultation: clear to auscultation bilaterally, no rales, no rhonchi and no wheezes Cardio: Rate: regular rate Heart sounds: no click, no murmurs and no rubs GI: Inspection: non-distended Auscultation: normal bowel sounds Extrem: General: normal to inspection, no pedal edema and no calf tenderness SALES LEAD - PN: Obj Data Vital Signs Vital Signs: Vital Signs - 24 hr 12/20/21 09:41 12/20/21 13:57 12/20/21 14:10 Temperature 98.8 F 98.3 F Pulse Rate 81 80 58 L Respiratory Rate 16 15 14 Blood Pressure 118/61 148/75 H 141/66 H Pulse Oximetry 100 100 100 Oxygen Delivery Room Air Simple Face Mask Simple Face Mask Oxygen Flow Rate 8 8 12/20/21 14:25 12/20/21 14:40 12/20/21 14:55 Temperature Pulse Rate 59 L 58 L 60 Respiratory Rate 12 13 12 Blood Pressure 128/60 112/59 L 107/55 L Pulse Oximetry 100 98 99 Oxygen Delivery Simple Face Mask Room Air Room Air Oxygen Flow Rate 8 12/20/21 15:10 12/20/21 15:25 12/20/21 15:40 Temperature Pulse Rate 59 L 59 L 60 Respiratory Rate 11 L 12 12 Blood Pressure 104/59 L 108/55 L 104/61 Pulse Oximetry 99 99 99 Oxygen Delivery Room Air Room Air Room Air Oxygen Flow Rate 12/20/21 15:55 12/20/21 16:10 12/20/21 16:27 Temperature Pulse Rate 59 L 57 L 74 Respiratory Rate 12 12 14 Blood Pressure 108/64 121/59 L 114/59 L Pulse Oximetry 100 100 100 Oxygen Delivery Room Air Room Air Room Air Oxygen Flow Rate 12/20/21 16:45 12/20/21 17:00 12/20/21 19:48 Temperature 97.7 F 98.2 F Pulse Rate 61 65 Respiratory Rate 18 18 Blood Pressure 121/74 125/72 Pulse Oximetry 98 Oxygen Delivery Room Air Oxygen Flow Rate 12/20/21 19:48 12/21/21 00:33 12/21/21 00:50 Temperature 97.7 F Pulse Rate 74 Respiratory Rate 18 Blood Pressure 115/70 Pulse Oximetry 99 Oxygen Delivery Room Air Room Air Oxygen Flow Rate 12/21/21 05:10 12/21/21 05:10 12/21/21 08:14 Temperature 97.9 F Pulse Rate 66 Respiratory Rate 18 Blood Pressure 110/63 Pulse Oximetry 99 Oxygen Delivery Room Air Room Air Oxygen Flow Rate Intake/Output Intake/Output: Intake & Output 12/18/21 12/19/21 12/20/21 12/21/21 23:59 23:59 23:59 23:59 Intake Total 1050 1000 Output Total 740 Balance 310 1000 Meds/Results Medications: Active Medications Generic Name Dose Route Start Last Admin Trade Name Freq PRN Reason Stop Dose Admin Hydrocodone Bitart/Acetaminophen 1 tab 12/20/21 16:35 Hydrocodone/Acetaminophen (*Crx) 5-325 Mg Tablet PO Q3H PRN Pain Rated 5 or Less Hydrocodone Bitart/Acetaminophen 1 tab 12/20/21 16:35 12/21/21 05:10 Hydrocodone/Acetaminophen (*Crx) 10-325 Mg Tablet PO 1 tab Q3H PRN Administration Pain Rated 6 or Greater Estradiol 1 mg 12/21/21 09:00 12/21/21 07:38 Estradiol 1 Mg Tablet PO Not Given DAILY RUBIA Ibuprofen 600 mg 12/20/21 16:35 Ibuprofen 600 Mg Tablet PO Q6H PRN Cramping Ketorolac Tromethamine 30 mg 12/20/21 16:35 12/21/21 05:10 Ketorolac 30 Mg/Ml Vial (*Bkc) IV PUSH 12/25/21 16:34 30 mg Q6H PRN Administration Pain Rated 4-6 Levofloxacin 500 mg 12/21/21 09:00 12/21/21 07:31 Levofloxacin 500 Mg
== END 2021-12-21 11:13 | disposition home or self-care (01) ==
LOC: ANHSURGERY 09:32 → ANHOB2 16:37
PROVIDERS: Visit Provider Obstetrics & Gynecology
PROC: 0UT9FZZ Resection of Uterus, Via Natural or Artificial Opening With Percutaneous Endoscopic Assistance (ICD-10-PCS; CPT 58571; principal; 2021-12-20 11:30)
DX: N92.0 Excessive and frequent menstruation with regular cycle (principal); R10.2 Pelvic and perineal pain; N72 Inflammatory disease of cervix uteri; D25.1 Intramural leiomyoma of uterus; N80.02 Deep endometriosis of the uterus; N83.8 Other noninflammatory disorders of ovary, fallopian tube and broad ligament; I10 Essential (primary) hypertension; E78.5 Hyperlipidemia, unspecified; D64.9 Anemia, unspecified; B00.9 Herpesviral infection, unspecified; F17.210 Nicotine dependence, cigarettes, uncomplicated; F12.90 Cannabis use, unspecified, uncomplicated
CPT/HCPCS: 58571; 88307; 99199; A9270; J0330; J0690; J1100; J1170; J1885; J2250; J2405; J2704; J3010; J7120

== ENCOUNTER 2022-02-17 11:39 | Day surgery (SDC) | payer BC, OTHER, SELFPAY ==
[2022-02-17] VITALS (11 sets, daily range): BP systolic 110–166; BP diastolic 50–77; PULSE 54–90; RESP 12–20; TEMP 36.8–37.2; O2SAT 93–100
--- NOTE | 2022-02-17 12:22 | WPDANESEPPF ---
Anes - Initial Pre Proc Eval Procedure: Operation Date: 02/17/22 13:00 Proposed Procedures p Laparoscopic repair of vaginal cuff dehiscence - Christian Ayala MD Date/Time: 02/17/22 12:22 Surgeon: Jamie Pre Op Diagnosis: Vaginal cuff dehiscence Pre Op Diagnosis: post op complications Patient Data Age: 56 Gender: F Height: 1.6 m Weight: 63.8 kg Last Vital Signs Temp 36.8 C 02/17/22 11:59 Pulse 60 02/17/22 11:59 Resp 12 02/17/22 11:59 BP 110/60 02/17/22 11:59 Pulse Ox 96 02/17/22 11:59 O2 Del Method Room Air 02/17/22 11:59 Allergies Allergy/AdvReac Type Severity Reaction Status Date / Time gabapentin Allergy Severe Anaphylactic Verified 12/20/21 09:44 Shock meperidine [From Demerol] Allergy Unknown Hives Verified 12/20/21 09:44 Home Medications Medication Instructions Recorded Confirmed Type losartan 50 mg tablet 50 mg PO DAILY 07/20/20 12/20/21 History rosuvastatin 5 mg tablet 5 mg PO DAILY 07/20/20 12/20/21 History esomeprazole magnesium 40 mg 40 mg PO DAILY 11/03/21 12/20/21 History capsule,delayed release (Nexium) ferrous sulfate 143 mg PO DAILY 11/03/21 12/20/21 History valacyclovir 1 gram tablet 1,000 mg PO DAILY 11/03/21 12/20/21 History estradiol 1 mg tablet 1 mg PO DAILY #30 tabs 12/07/21 12/20/21 Rx levofloxacin 500 mg tablet 500 mg PO DAILY #10 tabs 12/07/21 12/20/21 Rx metronidazole 500 mg tablet 500 mg PO Q12H #20 tabs 12/07/21 12/20/21 Rx ondansetron 4 mg oral soluble film 4 mg PO Q6H PRN Nausea #25 ea 12/07/21 12/20/21 Rx hydrocodone 5 mg-acetaminophen 325 1 tablet PO Q6H PRN Pain 12/14/21 12/20/21 History mg tablet hydrocodone 5 mg-acetaminophen 325 1 tablet PO Q4H PRN pain #25 tabs 12/21/21 Rx mg tablet Patient hx anesthesia problems: none Family hx anesthesia problems: none Results Review: All pre-operative results and documents have been reviewed as part of the pre-operative evaluation. [facility] Past Medical History Medical History Anemia Herpes simplex type 1 infection HTN (hypertension), malignant Hyperlipidemia Tobacco abuse Surgical History Surgical History H/O hand surgery H/O neck surgery C3 through C7 H/O oophorectomy H/O umbilical hernia repair Hx of cholecystectomy Family History Family History Mother Hypertension Heart disease Cerebrovascular accident Sibling Ovarian cancer Grandparent Breast cancer Bone cancer Heart disease Cerebrovascular accident Grandparent Hypertension Thyroid disorder Social History Social History Social History: The patient lives home alone. She is in the middle of getting a divorce. She is not currently working. She has 2 children. Patient uses edible marijuana and CBD oil. The patient smokes a half a pack of cigarettes daily. She rarely drinks alcohol. She does not have a durable power burner tender for healthcare. Code status full code Smoking packs per day: 0.5 Smoking cigarettes per day: 10.0 Years smoked: 40 Smoking pack-years: 20.00 Smoking status: Current every day smoker Tobacco type: cigarettes Second hand tobacco smoke exposure: Yes Alcohol intake: former Drinks per week: 2 Substance use: current Substance use type: marijuana Last use: 12/05/2021 Spiritual care concerns: No Anes - Eval Final PreProcedure Day of Procedure 02/17/22 12:22 Patient weight: normal Heart: regular rate and rhythm Lungs: normal air movement Airway: Mallampati scale class II Neurological: alert and oriented Last oral intake: >/= 8 hours ASA classification: II Emergent: yes Anesthetic plan: proceed Anesthesia type and monitoring: general Results Review: All pre-operative results and documents have been reviewed as part of the pr
--- NOTE | 2022-02-17 12:50 | PM.IMHP ---
H&P: [facility] History of Present Illness Date/Time: 02/17/22 12:50 Chief Complaint: Pelvic pain Narrative: this patient is a 56-year-old female presents for postoperative pelvic pain. She is examined in the office today. there may be a dehiscence of the vaginal cuff. She had pain with deep penetration intercourse. We have agreed to perform exam under anesthesia and diagnostic laparoscopy. The exam could not be performed well in the office due to pain. She denies any chest pain or shortness of breath. She denies any nausea, vomiting, fever, chills Review of Systems Review of Systems: All systems reviewed & are unremarkable except as noted in HPI and below Constitutional: Constitutional: Denies chills, Denies fatigue, Denies fever(s) and Denies weakness Eyes: Eyes: Denies blurry vision, Denies change in vision, Denies loss of peripheral vision, Denies loss of vision, Denies other visual disturbances and Denies eye pain ENT: Denies vertigo, Denies dizziness, Denies hearing loss, Denies mouth pain, Denies nasal obstruction, Denies neck mass and Denies neck pain Cardiovascular: Cardiovascular: Denies chest pain, Denies diaphoresis, Denies syncope, Denies leg edema and Denies dyspnea Respiratory: Respiratory: Denies chest congestion, Denies cough, Denies hemoptysis, Denies dyspnea and Denies wheezing Gastrointestinal: Gastrointestinal: Denies abdominal pain, Denies constipation, Denies diarrhea, Denies nausea and Denies vomiting Genitourinary: Genitourinary: Denies hematuria, Denies change in libido, Denies nocturia, Denies genital lesions, Denies flank pain and Denies urinary urgency Musculoskeletal: Musculoskeletal: Denies abnormal gait, Denies back pain, Denies myalgias, Denies arthralgias, Denies joint swelling, Denies muscle weakness and Denies neck pain Integumentary/Breasts: Skin/Breast: Denies swelling, Denies breast pain, Denies breast mass, Denies dry skin, Denies nipple discharge, Denies unusual bruising and Denies jaundice Neurologic: Denies Neuro-related abnormal movements, Denies Abnormal speech present, Denies abnormal gait, Denies behavioral changes, Denies confusion, Denies vertigo, Denies dizziness, Denies syncope, Denies loss of vision, Denies memory loss, Denies convulsions and Denies weakness Psychiatric: Psychiatric: Denies abnormal sleep pattern, Denies behavioral changes, Denies change in libido, Denies confusion, Denies depression, Denies anhedonia and Denies memory loss Endocrine: Endocrine: Reports no additional endocrine complaints, Denies change in libido and Denies fatigue Hematologic/Lymphatic: Hematologic/Lymphatic: Reports no additional hematologic/lymphatic complaints Allergic/Immunologic: Allergic/Immunologic: Reports no additional allergic/immunologic complaints and Denies wheezing PMFSH Past Medical History Medical History Anemia Herpes simplex type 1 infection HTN (hypertension), malignant Hyperlipidemia Tobacco abuse Surgical History Surgical History H/O hand surgery H/O neck surgery C3 through C7 H/O oophorectomy H/O umbilical hernia repair Hx of cholecystectomy Family History Family History Mother Hypertension Heart disease Cerebrovascular accident Sibling Ovarian cancer Grandparent Breast cancer Bone cancer Heart disease Cerebrovascular accident Grandparent Hypertension Thyroid disorder Social History Social History Social History: The patient lives home alone. She is in the middle of getting a divorce. She is not currently working. She has 2 children. Patient uses edible marijuana and CBD oil. The patient smokes a half a pack of cigarettes daily. She rarely drinks alcohol. She does not have a durable power tax associate attorney for healthcare. Code s
--- NOTE | 2022-02-17 12:53 | WPDHPUPDATE1 ---
History and Physical Update Update Date/Time: 02/17/22 12:53 History and Physical has been reviewed, including an updated exam of the patient. There are NO changes in the patient's condition. Risks, benefits, and alternatives have been discussed and questions answered. Patient agrees to proceed with procedure.
[2022-02-17] MEDS: ceFAZolin SODIUM 1 GM VIAL (13:00)
[2022-02-17] MEDS: ceFAZolin SODIUM 1 GM VIAL IRRIGATION (13:35)
[2022-02-17] MEDS: LACTATED RINGERS 1,000 ML 30 ML IV CONT ×2 (14:37)
[2022-02-17] MEDS: fentaNYL CITRATE INJ (*CRX) 100 MCG/2 ML VIAL 25 MCG IV PUSH ×8 (14:44→15:13)
--- NOTE | 2022-02-17 15:04 | W.PM.PROC2 ---
Procedure Note - Detailed Date of Procedure 02/17/22 Pre-op Diagnosis post op complications, dehiscence of vaginal cuff incision, adhesiolysis Post-op Diagnosis Same ( with Very mild herniation pericolic fat.) Procedure Performed Diagnostic laparoscopy , pelvic exam under anesthesia, revision/closure/repair vaginal cuff. Surgeon Christian Ayala MD Anesthesia General Indications Pelvic pain Findings Separation of vaginal cuff with perirectal fat herniating into the opening. The fat is adherent to the vaginal cuff and surrounding tissue in the pelvis. Multiple lobules of pericolic fat or adhered to the vaginal cuff area and in the vaginal cuff itself. Description of Procedure The patient was taken to the operating room. She was prepped and draped in the dorsal lithotomy position after induction general anesthesia. A 5 mm incision was made with a scalpel on the abdominal skin in the left upper quadrant of the abdomen. A 5 mm trocar was inserted into the intra-abdominal cavity under direct visualization the scope. In the same fashion a 5 mm left lower quadrant trocar was inserted and a 5 mm infraumbilical trocar was inserted. adhesiolysis was performed the pericolic fat from the vaginal cuff. This required about 30 minutes of adhesiolysis. The vaginal portion of the procedure was performed. The exam was performed and the vaginal cuff was closed with interrupted 0 Vicryl sutures. It was done a very thorough fashion. There was great strength and integrity to the closed wound. the incision was examined from above with the laparoscopic examination. Copious irrigation was used was antibiotic irrigation. The pelvis was irrigated. The pneumoperitoneum was reduced. The trocars were removed. Skin was closed with subcuticular 4 micro. The patient's incisions were covered with Dermabond. She was taken recovery room in stable condition. Sponge lap and needle counts were correct x2. Estimated Blood Loss -50.0 Urine Output -50.0 Complications No immediate complications Condition Stable Disposition Same day
[2022-02-17] MEDS: HYDROmorphone HCL INJ (*CRX) 1 MG/ML SYR 0.5 MG IV PUSH ×4 (15:05→15:26)
[2022-02-17] MEDS: oxyCODONE HCL (*CRX) 5 MG TAB IR PO (15:56)
[2022-02-17] MEDS: KETOROLAC 30 MG/ML VIAL (*BKC) IV PUSH (16:04)
--- NOTE | 2022-02-17 18:49 | ED.GENADULT ---
HPI - General Adult General Chief complaint: Unspecified Stated complaint: post op complications Time Seen by Provider: 02/17/22 11:47 Source: patient and RN notes reviewed Mode of arrival: wheelchair Limitations: no limitations History of Present Illness HPI narrative: This is a 56 year old female who presents for evaluation of vaginal cuff dehiscense. Patient states she had a total hysterectomy performed by Dr. Ayala 2 months ago. She has noticed worsening pelvic pain for past couple of weeks. Her pain is worse with sexual intercourse. She reports minimal vaginal bleeding, and she denies vaginal discharged. She denies fever, chills, nausea or vomiting. She was evaluated by Dr. Ayala in his office today and he thought patient may have vaginal cuff dehiscense. He wants to take patient to OR today so she was sent to ER. Related Data Home Medications Medication Instructions Recorded Confirmed losartan 50 mg tablet 50 mg PO DAILY 07/20/20 12/20/21 rosuvastatin 5 mg tablet 5 mg PO DAILY 07/20/20 12/20/21 esomeprazole magnesium 40 mg 40 mg PO DAILY 11/03/21 12/20/21 capsule,delayed release (Nexium) ferrous sulfate 143 mg PO DAILY 11/03/21 12/20/21 valacyclovir 1 gram tablet 1,000 mg PO DAILY 11/03/21 12/20/21 hydrocodone 5 mg-acetaminophen 325 1 tablet PO Q6H PRN Pain 12/14/21 12/20/21 mg tablet Allergies Allergy/AdvReac Type Severity Reaction Status Date / Time gabapentin Allergy Severe Anaphylactic Verified 12/20/21 09:44 Shock meperidine [From Demerol] Allergy Unknown Hives Verified 12/20/21 09:44 Review of Systems Constitutional: Constitutional: Denies weakness Cardiovascular: Cardiovascular: Denies syncope, Denies rapid heart rate, Denies irregular heart rhythm, Denies leg edema and Denies dyspnea Respiratory: Respiratory: Denies chest congestion, Denies hemoptysis, Denies excessive phlegm production and Denies dyspnea Gastrointestinal: Gastrointestinal: Denies hematochezia, Denies diarrhea and Denies vomiting Genitourinary: Genitourinary: Denies hematuria, Denies dysuria and Reports pelvic pain Musculoskeletal: Musculoskeletal: Denies joint swelling, Denies loss of height and Denies muscle weakness Neurologic: Denies syncope, Denies focal weakness and Denies weakness PMFSH Past Medical History Medical History Anemia Herpes simplex type 1 infection HTN (hypertension), malignant Hyperlipidemia Tobacco abuse Surgical History Surgical History H/O hand surgery H/O neck surgery C3 through C7 H/O oophorectomy H/O umbilical hernia repair Hx of cholecystectomy Family History Family History Mother Hypertension Heart disease Cerebrovascular accident Sibling Ovarian cancer Grandparent Breast cancer Bone cancer Heart disease Cerebrovascular accident Grandparent Hypertension Thyroid disorder Social History Social History Social History: The patient lives home alone. She is in the middle of getting a divorce. She is not currently working. She has 2 children. Patient uses edible marijuana and CBD oil. The patient smokes a half a pack of cigarettes daily. She rarely drinks alcohol. She does not have a durable power insurance defense attorney for healthcare. Code status full code Smoking packs per day: 0.5 Smoking cigarettes per day: 10.0 Years smoked: 40 Smoking pack-years: 20.00 Smoking status: Current every day smoker Tobacco type: cigarettes Second hand tobacco smoke exposure: Yes Alcohol intake: former Drinks per week: 2 Substance use: current Substance use type: marijuana Last use: 12/05/2021 Spiritual care concerns: No Exam Narrative: GENERAL: well-nourished, and in no acute distress. HEAD: Normocephalic, atraumatic EYES: PERRLA a
== END 2022-02-17 16:52 | disposition home or self-care (01) ==
LOC: ANHED 12:22 → ANHSURGERY 12:23
PROVIDERS: Emergency Provider General Practice; Visit Provider Obstetrics & Gynecology
PROC: 0UT9FZZ Resection of Uterus, Via Natural or Artificial Opening With Percutaneous Endoscopic Assistance (ICD-10-PCS; CPT 58660; principal; 2022-02-17 13:00)
DX: T81.31XA Disruption of external operation (surgical) wound, not elsewhere classified, initial encounter (principal); Y83.8 Other surgical procedures as the cause of abnormal reaction of the patient, or of later complication, without mention of misadventure at the time of the procedure; N73.6 Female pelvic peritoneal adhesions (postinfective); I10 Essential (primary) hypertension; E78.5 Hyperlipidemia, unspecified; B00.9 Herpesviral infection, unspecified; F17.210 Nicotine dependence, cigarettes, uncomplicated; F12.90 Cannabis use, unspecified, uncomplicated
CPT/HCPCS: 58660; 58999; 99285; A9270; J0131; J0690; J1100; J1170; J1885; J2250; J2405; J2704; J2710; J3010; J7030; J7120

== ENCOUNTER 2022-02-21 14:45 | Emergency (ER) | payer BC, OTHER, SELFPAY ==
[2022-02-21 15:42] VITALS: BP 147/56; PULSE 77; RESP 18; TEMP 37.1; O2SAT 98
--- NOTE | 2022-02-21 17:42 | PC.NURSE ---
patient left from waiting area
== END 2022-02-21 17:52 | disposition left against medical advice (07) ==
DX: R10.9 Unspecified abdominal pain (principal)
CPT/HCPCS: 99199

== ENCOUNTER 2022-05-17 21:03 | Emergency (ER) | payer BC, OTHER, SELFPAY ==
[2022-05-17] VITALS (16 sets, daily range): BP systolic 111–144; BP diastolic 52–92; PULSE 71–97; RESP 13–36; TEMP 36.5; O2SAT 96–100
--- NOTE | ~2022-05-17 | XR_ITS ---
EXAMINATION: XR chest 1V portable DATE: 05/17/2022 21:49 INDICATION: Anaphylaxis TECHNIQUE: frontal view of the chest was obtained. COMPARISON: None FINDINGS: Small calcified nodule at the left lower lung zone and calcified left hilar lymph nodes consistent wi th old granulomatous disease. No other airspace opacities, pulmonary edema, pleural effusion or pneum othorax. The cardiomediastinal silhouette is normal. Instrumented anterior spinal fusion at the lower cervical spine. IMPRESSION: 1. No acute cardiopulmonary disease. Reviewed, dictated and finalized at location A. 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
[2022-05-17] MEDS: SODIUM CHLORIDE 0.9% IV 2,000 ML 999 ML IV CONT (21:46)
[2022-05-17] MEDS: EPINEPHrine HCL INJ 1 MG/ML AMPUL 0.3 MG IM (21:50)
[2022-05-17] MEDS: ONDANSETRON INJ 4 MG/2 ML VIAL 8 MG IV PUSH (21:52)
[2022-05-17] MEDS: diphenhydrAMINE HCl INJ 50 MG/ML VIAL IV PUSH (21:53)
[2022-05-17] MEDS: FAMOTIDINE 20 MG/2 ML VIAL 40 MG IV PUSH (21:54)
--- NOTE | 2022-05-18 00:39 | ED.GENADULT ---
HPI - General Adult General Chief complaint: Allergic Reaction Stated complaint: allergic reaction Time Seen by Provider: 05/17/22 21:30 History of Present Illness HPI narrative: A 6-year-old female presenting ED with a chief complaint of an allergic reaction. Patient says that she took a new type of pantoprazole earlier today. At 5:00 p.m. she developed total body redness, hives hoarse voice and mild shortness of breath. She is able to tolerate her own secretions. She does feel nauseous but not had any vomiting or diarrhea. She does not feel like her throat is closing. She has never had an anaphylactic reaction before. She took some Benadryl prior to arrival Related Data Home Medications Medication Instructions Recorded Confirmed losartan 50 mg tablet 50 mg PO DAILY 07/20/20 12/20/21 rosuvastatin 5 mg tablet 5 mg PO DAILY 07/20/20 12/20/21 esomeprazole magnesium 40 mg 40 mg PO DAILY 11/03/21 12/20/21 capsule,delayed release (Nexium) ferrous sulfate 143 mg PO DAILY 11/03/21 12/20/21 valacyclovir 1 gram tablet 1,000 mg PO DAILY 11/03/21 12/20/21 hydrocodone 5 mg-acetaminophen 325 1 tablet PO Q6H PRN Pain 12/14/21 12/20/21 mg tablet Allergies Allergy/AdvReac Type Severity Reaction Status Date / Time gabapentin Allergy Severe Anaphylactic Verified 05/17/22 21:38 Shock meperidine [From Demerol] Allergy Unknown Hives Verified 05/17/22 21:38 [facility] Past Medical History Medical History Anemia Herpes simplex type 1 infection HTN (hypertension), malignant Hyperlipidemia Tobacco abuse Surgical History Surgical History H/O hand surgery H/O neck surgery C3 through C7 H/O oophorectomy H/O umbilical hernia repair Hx of cholecystectomy Family History Family History Mother Hypertension Heart disease Cerebrovascular accident Sibling Ovarian cancer Grandparent Breast cancer Bone cancer Heart disease Cerebrovascular accident Grandparent Hypertension Thyroid disorder Social History Social History Social History: The patient lives home alone. She is in the middle of getting a divorce. She is not currently working. She has 2 children. Patient uses edible marijuana and CBD oil. The patient smokes a half a pack of cigarettes daily. She rarely drinks alcohol. She does not have a durable power assistant attorney general for healthcare. Code status full code Smoking packs per day: 0.5 Smoking cigarettes per day: 10.0 Years smoked: 40 Smoking pack-years: 20.00 Smoking status: Current every day smoker Tobacco type: cigarettes Second hand tobacco smoke exposure: Yes Alcohol intake: former Drinks per week: 2 Substance use: current Substance use type: marijuana Last use: 12/05/2021 Living arrangements: with family Spiritual care concerns: No Exam Narrative: APPEARANCE: No apparent distress. Head: no visible swelling of the throat EYES: EOMI, NOSE: Atraumatic NECK: Trachea midline RESPIRATORY: No increased rate of breathing, clear to auscultation CARDIOVASCULAR: RRR, no peripheral edema ABDOMINAL: Non-distended, soft no guarding or rebound MUSCULOSKELETAl: No obvious deformities NEURO: Alert. Moving 4/4 extremities SKIN:: flushed red with hives on her back PSYCHIATRIC: Normal affect Course Vital Signs Vital signs: Vital Signs Temperature 97.7 F 05/17/22 21:19 Pulse Rate 91 05/17/22 21:19 Respiratory Rate 22 H 05/17/22 21:19 Blood Pressure 142/74 H 05/17/22 21:19 Pulse Oximetry 99 05/17/22 21:19 Oxygen Delivery Room Air 05/17/22 21:19 Temperature 97.7 F 05/17/22 21:19 Pulse Rate 75 05/17/22 23:31 Respiratory Rate 15 05/17/22 23:31 Blood Pressure 112/60 05/17/22 23:31 Pulse Oximetry 98 05/17/22 23:31 Oxygen Del
[2022-05-18 00:50] VITALS: BP 117/71; PULSE 70; RESP 14; O2SAT 100
== END 2022-05-18 00:55 | disposition home or self-care (01) ==
PROVIDERS: Emergency Provider Emergency Medicine; PCP Family Medicine
DX: T78.2XXA Anaphylactic shock, unspecified, initial encounter (principal); I10 Essential (primary) hypertension; E78.5 Hyperlipidemia, unspecified; D64.9 Anemia, unspecified; F17.210 Nicotine dependence, cigarettes, uncomplicated
CPT/HCPCS: 71045; 96361; 96372; 96374; 96375; 99284; J0171; J1100; J1200; J2405; J7030

== ENCOUNTER 2024-02-25 16:29 | Emergency (ER) | payer OTHER, SELFPAY ==
--- NOTE | ~2024-02-25 | CT_ITS ---
EXAMINATION: CT abdomen pelvis w con DATE: 02/25/2024 18:23 INDICATION: Abdominal pain. TECHNIQUE: Computed tomography (CT) of the abdomen and pelvis was performed with 100 mL Omnipaque 350 intravenous contrast. Automated exposure control and iterative reconstruction technique were employe d. The dose-length product was 410.42 mGy-cm. COMPARISON: CT abdomen and pelvis 12/07/2021 FINDINGS: The visualized portions of lung bases demonstrate mild atelectasis. Calcified left lung nod ules are consistent with old granulomatous disease. No pleural effusion. The heart size is normal. Th ere are coronary artery calcifications. No pericardial effusion. The liver is normal. The gallbladder is absent. Calcifications in the spleen are consistent with old granulomatous disease. The pancreas, adrenal glands, and left kidney are normal. There is a 5 mm cyst in right kidney. There are no dilat ed loops of bowel. The appendix is normal. There are no pathologically enlarged lymph nodes. There is no free intraperitoneal fluid. There is a right inguinal hernia containing fat. There is severe thor acolumbar spondylosis. IMPRESSION: 1. Right inguinal hernia containing fat. 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
[2024-02-25 16:34] VITALS: BP 137/66; PULSE 81; RESP 16; TEMP 36.7; O2SAT 96
--- NOTE | 2024-02-25 16:50 | ED_ITS ---
HPI - Female Genitourinary General Chief complaint: Urogenital-Female Stated complaint: hematuria Time Seen by Provider: 02/25/24 16:45 Focused HPI: Patient is a 58-year-old female who presents to the ER with concerns of recurrent UTI. She reports she finished antibiotics approximately 2 weeks ago and continues to have symptoms. Patient reports she has had a hysterectomy but has noticed vaginal bleeding. She reports she has a history of pyelonephritis. Patient has no concerns for STDs. She endorses urgency, back pain and incomplete emptying. Patient denies any recent fevers, chest pain, shortness of breath. GENERAL: Well-appearing, well-nourished, and in no acute distress. HEAD: Normocephalic, atraumatic. CHEST: Clear to auscultation. ?No respiratory distress. HEART: Regular rate and rhythm.? NEURO: ?Alert and oriented x3. Patient screened in triage and initial orders placed.? ?Additional care and disposition to be based upon?diagnostic testing and treatment. Related Data Home Medications ?Medication ?Instructions ?Recorded ?Confirmed ?Last Taken ?Type losartan 50 mg tablet 50 mg PO DAILY 07/20/20 12/20/21 12/20/21 History rosuvastatin 5 mg tablet 5 mg PO DAILY 07/20/20 12/20/21 Unknown History esomeprazole magnesium 40 mg 40 mg PO DAILY 11/03/21 12/20/21 Unknown History capsule,delayed release (Nexium) ferrous sulfate 143 mg PO DAILY 11/03/21 12/20/21 Unknown History valacyclovir 1 gram tablet 1,000 mg PO DAILY 11/03/21 12/20/21 12/20/21 History hydrocodone 5 mg-acetaminophen 325 1 tablet PO Q6H PRN Pain 12/14/21 12/20/21 Unknown History mg tablet Allergies Allergy/AdvReac Type Severity Reaction Status Date / Time gabapentin Allergy Severe Anaphylactic Verified 02/25/24 16:31 Shock meperidine (From Demerol) Allergy Unknown Hives Verified 02/25/24 16:31 PMFSH Past Medical History Medical History Anemia Herpes simplex type 1 infection HTN (hypertension), malignant Hyperlipidemia Tobacco abuse Surgical History Surgical History H/O hand surgery H/O neck surgery C3 through C7 H/O oophorectomy H/O umbilical hernia repair Hx of cholecystectomy Family History Family History Mother Hypertension Heart disease Cerebrovascular accident Sibling Ovarian cancer Grandparent Breast cancer Bone cancer Heart disease Cerebrovascular accident Grandparent Hypertension Thyroid disorder Social History Social History Social History: The patient lives home alone. She is in the middle of getting a divorce. She is not currently working. She has 2 children. Patient uses edible marijuana and CBD oil. The patient smokes a half a pack of cigarettes daily. She rarely drinks alcohol. She does not have a durable power insurance defense attorney for healthcare. Code status full code Smoking packs per day: 0.5 Smoking cigarettes per day: 10.0 Years smoked: 40 Smoking pack-years: 20.00 Smoking status: Current every day smoker Tobacco type: cigarettes Second hand tobacco smoke exposure: Yes Alcohol intake: former Drinks per week: 2 Substance use: current Substance use type: marijuana Last use: 12/05/2021 Living arrangements: with family Spiritual care concerns: No Course Vital Signs Vital signs: Vital Signs Temperature 36.7 C 02/25/24 16:34 Pulse Rate 81 02/25/24 16:34 Respiratory Rate 16 02/25/24 16:34 Blood Pressure 137/66 02/25/24 16:34 Pulse Oximetry 96 02/25/24 16:34 Oxygen Delivery Room Air 02/25/24 16:34 Temperature 36.7 C 02/25/24 16:34 Pulse Rate 81 02/25/24 16:34 Respiratory Rate 16 02/25/24 16:34 Blood Pressure 137/66 02/25/24 16:34 Pulse Oximetry 96 02/25/24 16:34 Oxygen Delivery Room Air 02/25/24 16:34 Discharge Plan Discharge Patient Language: Tajik Prescriptions: No Action rosuvastatin 5 mg tablet 5 mg PO DAILY losartan 50 mg tablet 50 mg PO DAILY valacyclovir 1 gram tablet 1,000 mg PO DAILY esomeprazole magnesium [Nexium] 40 mg Capsule,Delayed Release(Dr/Ec) 40 mg PO DAILY ferrous sulfate 47.5 mg iron Tablet Extended Release 143 mg PO DAILY hydrocodone-acetaminophen 5-325 mg tablet 1 tablet PO Q6H PRN (Reason: Pain) hydrocodone-acetaminophen 5-325 mg tablet 1 tablet PO Q4H PRN (Reason: pain) Qty: 25 0RF levofloxacin 500 mg tablet 500 mg PO DAILY Qty: 10 5RF estradiol 1 mg tablet 1 mg PO DAILY Qty: 30 12RF metronidazole 500 mg tablet 500 mg PO Q12H Qty: 20 0RF ondansetron 4 mg Film 4 mg PO Q6H PRN (Reason: Nausea) Qty: 25 0RF hydrocodone-acetaminophen 5-325 mg tablet 1 tablet PO Q4H PRN (Reason: pain) Qty: 25 0RF epinephrine 0.3 mg/0.3 mL auto-injector 0.3 mg IM ONCE Qty: 2 0RF Rx Instructions: as a single dose; may repeat once Follow-up/Referrals: Janak Ayala MD [Primary Care Provider] -
[2024-02-25 17:21] LABS: Basophils Absolute Auto 0.1 K/mm3 (0.0-0.1); Basophils Percent Auto 0.5 % (0.2-1.2); Eosinophils Absolute Auto 0.1 K/mm3 (0-0.3); Eosinophils Percent Auto 1.1 % (0-4.4); Hematocrit 41.5 % (37.0-47.0); Hemoglobin 14.1 g/dL (12.0-15.0); Immature Granulocyte Absolute 0.03 K/mm3 (0.00-0.031); Immature Granulocyte Percent A 0.3 % (0-0.5); Lymphocytes Absolute Auto 3.91 K/mm3 (0.9-3.2); Lymphocytes Percent Auto 35.9 % (18.3-44.2); Mean Corpuscular Hemoglobin 34.1 pg (26-34); Mean Corpuscular Volume 100.2 fl (80-100); Mean Platelet Volume 10.4 fl (7.4-10.4); Monocytes Absolute Auto 0.5 K/mm3 (0.1-0.6); Monocytes Percent Auto 4.6 % (2.6-8.5); Neutrophils Absolute Auto 6.3 K/mm3 (1.3-6.7); Neutrophils Percent Auto 57.6 % (45.5-73.1); Platelet Count Result 195 k/mm3 (150-375); Red Blood Count 4.14 M/mm3 (4.2-5.4); Red Cell Distribution Width 12.9 % (11.5-14.5); White Blood Count 10.9 K/mm3 (4.5-10.0)
[2024-02-25 17:28] LABS: Add Urine Microscopic? YES; Appearance Urine Cloudy (Clear); Bacteria Urine None Seen /hpf; Bilirubin Urine Negative (Negative); Blood Urine Negative (Negative); Color Urine Yellow (Yellow); Glucose Urine UA Negative (Negative); Ketones Urine Negative (Negative); Leukocyte Esterase Ur Negative LEU/UL (Negative); Nitrate Urine Negative (Negative); Non Pathogenic Casts 0-2; Protein Urine Negative (Negative); RBC Urine 0-2 /hpf (0-2); Specific Grav Ur 1.023 (1.001-1.035); Squamous Epithelial Cell Urine Occasional /hpf (Few); Urobilinogen Urine 0.2 mg/dL (<2.0); WBC Urine 0-5 /hpf (0-3)
[2024-02-25] MEDS: KETOROLAC (*BKC) 60 MG/2 ML VIAL IM (17:31)
[2024-02-25 17:37] LABS: INR 0.9; Prothrombin Time 12.8 Seconds (11.1-14.7)
[2024-02-25 17:39] LABS: Partial Thromboplastin Time 26.6 Seconds (22.3-36.8)
[2024-02-25 18:05] LABS: Anion Gap 1 mmol/L (4-12); Carbon Dioxide 28 mmol/L (22-30); Chloride 108 mmol/L (98-107); Potassium 3.8 mmol/L (3.4-5.0); Sodium 137 mmol/L (137-145)
[2024-02-25 18:06] LABS: Alanine Aminotransferase 13 U/L (6-35); Aspartate Amino Transferase 21 U/L (14-36); Bilirubin,Total 0.3 mg/dL (0.2-1.3); Blood Urea Nitrogen 12 mg/dL (7-17); Calcium 8.8 mg/dL (8.4-10.2); Estimated CRCL calculation 64 ml/min; Estimated Glomerular Filt Rate > 60; Glucose 93 mg/dL (65-110); Total Protein 7.3 g/dL (6.3-8.2)
[2024-02-25 18:07] LABS: Albumin Level 4.2 g/dL (3.5-5.1); Alkaline Phosphatase 67 U/L (38-126); Lipase 132 U/L (23-300)
--- NOTE | 2024-02-25 18:42 | ED_ITS ---
HPI - General Adult General Chief complaint: Urogenital-Female Stated complaint: hematuria Time Seen by Provider: 02/25/24 16:45 History of Present Illness HPI narrative: 58-year-old female presented to the emergency department for evaluation for recurrent urinary tract infections. Patient has been treated multiple times by OB Gyne for urinary symptoms. Patient states that she had worsening urinary symptoms over the last few days and was concerned she has another urinary tract infection. Related Data Home Medications ?Medication ?Instructions ?Recorded ?Confirmed ?Last Taken ?Type losartan 50 mg tablet 50 mg PO DAILY 07/20/20 12/20/21 12/20/21 History rosuvastatin 5 mg tablet 5 mg PO DAILY 07/20/20 12/20/21 Unknown History esomeprazole magnesium 40 mg 40 mg PO DAILY 11/03/21 12/20/21 Unknown History capsule,delayed release (Nexium) ferrous sulfate 143 mg PO DAILY 11/03/21 12/20/21 Unknown History valacyclovir 1 gram tablet 1,000 mg PO DAILY 11/03/21 12/20/21 12/20/21 History hydrocodone 5 mg-acetaminophen 325 1 tablet PO Q6H PRN Pain 12/14/21 12/20/21 Unknown History mg tablet Allergies Allergy/AdvReac Type Severity Reaction Status Date / Time gabapentin Allergy Severe Anaphylactic Verified 02/25/24 16:31 Shock meperidine (From Demerol) Allergy Unknown Hives Verified 02/25/24 16:31 Review of Systems 2 Review of Systems: All systems reviewed & are unremarkable except as noted in HPI and below PMFSH Past Medical History Medical History Anemia Herpes simplex type 1 infection HTN (hypertension), malignant Hyperlipidemia Tobacco abuse Surgical History Surgical History H/O hand surgery H/O neck surgery C3 through C7 H/O oophorectomy H/O umbilical hernia repair Hx of cholecystectomy Family History Family History Mother Hypertension Heart disease Cerebrovascular accident Sibling Ovarian cancer Grandparent Breast cancer Bone cancer Heart disease Cerebrovascular accident Grandparent Hypertension Thyroid disorder Social History Social History Social History: The patient lives home alone. She is in the middle of getting a divorce. She is not currently working. She has 2 children. Patient uses edible marijuana and CBD oil. The patient smokes a half a pack of cigarettes daily. She rarely drinks alcohol. She does not have a durable power consumer attorney for healthcare. Code status full code Smoking packs per day: 0.5 Smoking cigarettes per day: 10.0 Years smoked: 40 Smoking pack-years: 20.00 Smoking status: Current every day smoker Tobacco type: cigarettes Second hand tobacco smoke exposure: Yes Alcohol intake: former Drinks per week: 2 Substance use: current Substance use type: marijuana Last use: 12/05/2021 Living arrangements: with family Spiritual care concerns: No Exam 2 Narrative: APPEARANCE: Well appearing, no pain, no distress, well-nourished. HEAD: normocephalic, atraumatic. EYES: PERRLA/EOMI, conjunctivae clear. NOSE: Normal no drainage EARS:TMS clear with good light reflex. THROAT: Pharynx clear, no exudate. NECK: Supple. No adenopathy, no masses. RESPIRATORY: Airway patent, respirations nonlabored. Clear to auscultation bilaterally, no rales, rhonchi, wheezing. CARDIOVASCULAR: Regular rate and rhythm without murmurs rubs or gallops. ABDOMINAL: Soft, nontender, nondistended, normal bowel sounds MUSCULOSKELETAL: Moves all extremities. Strength/ROM intact, No edema, No calf tenderness. NEURO: Alert. Cranial nerves II through XII intact. Good gait. Good coordination SKIN: Warm, dry. Normal Color PSYCHIATRIC: Normal affect/mood. Course Vital Signs Vital signs: Vital Signs Temperature 98.1 F 02/25/24 16:34 Pulse Rate 81 02/25/24 16:34 Respiratory Rate 16 02/25/24 16:34 Blood Pressure 137/66 02/25/24 16:34 Pulse Oximetry 96 02/25/24 16:34 Oxygen Delivery Room Air 02/25/24 16:34 Temperature 98.1 F 02/25/24 16:34 Pulse Rate 81 02/25/24 16:34 Respiratory Rate 16 02/25/24 16:34 Blood Pressure 137/66 02/25/24 16:34 Pulse Oximetry 96 02/25/24 16:34 Oxygen Delivery Room Air 02/25/24 16:34 Medical Decision Making [facility] Narrative Medical decision making narrative: 58-year-old female present to the emergency department for evaluation for urinary symptoms. Patient is afebrile but does have a leukocytosis of 10.9 and hemoglobin of 14.1. Patient has no acute abnormalities on her CMP UA was negative for infection. CT abdomen pelvis shows no acute abdominal pelvic abnormality. Bladder scan shows no retained urine. Patient states that she has had the discussion previously with OB Gyne that she will need to have follow-up with Urology. Patient is being provided urology follow-up on her discharge instructions. Patient is also being provided Pyridium for symptom control to see if this helps. All questions concerns were addressed patient was comfortable with plan for discharge and close follow-up. Differential Diagnosis Differential Diagnosis: UTI, urinary retention, interstitial cystitis, bladder spasm Vital Signs Vital Signs: Vital Signs Temperature 98.1 F 02/25/24 16:34 Pulse Rate 81 02/25/24 16:34 Respiratory Rate 16 02/25/24 16:34 Blood Pressure 137/66 02/25/24 16:34 Pulse Oximetry 96 02/25/24 16:34 Oxygen Delivery Room Air 02/25/24 16:34 Temperature 98.1 F 02/25/24 16:34 Pulse Rate 81 02/25/24 16:34 Respiratory Rate 16 02/25/24 16:34 Blood Pressure 137/66 02/25/24 16:34 Pulse Oximetry 96 02/25/24 16:34 Oxygen Delivery Room Air 02/25/24 16:34 Lab Data Lab results reviewed: Yes I reviewed the patient's lab results. 02/25/24 17:11 02/25/24 17:11 Labs: Lab Results 02/25/24 Range/Units 17:11 WBC 10.9 H (4.5-10.0) K/mm3 RBC 4.14 L (4.2-5.4) M/mm3 Hgb 14.1 (12.0-15.0) g/dL Hct 41.5 (37.0-47.0) % MCV 100.2 H (80-100) fl MCH 34.1 H (26-34) pg MCHC 34.0 (32-36) g/dl RDW 12.9 (11.5-14.5) % Plt Count 195 (150-375) k/mm3 MPV 10.4 (7.4-10.4) fl Immature Gran % (Auto) 0.3 (0-0.5) % Neut % (Auto) 57.6 (45.5-73.1) % Lymph % (Auto) 35.9 (18.3-44.2) % [place] % (Auto) 4.6 (2.6-8.5) % Eos % (Auto) 1.1 (0-4.4) % Baso % (Auto) 0.5 (0.2-1.2) % Lymph # (Auto) 3.91 H (0.9-3.2) K/mm3 [place] # (Auto) 0.5 (0.1-0.6) K/mm3 Eos # (Auto) 0.1 (0-0.3) K/mm3 Baso # (Auto) 0.1 (0.0-0.1) K/mm3 Abs Immat Gran (auto) 0.03 (0.00-0.031) K/mm3 Absolute Neuts (auto) 6.3 (1.3-6.7) K/mm3 Absolute Nucleated RBC 0.000 (0.0-0.012) K/mm3 Nucleated RBC % 0.0 (0.0-0.2) % PT 12.8 (11.1-14.7) Seconds INR 0.9 APTT 26.6 (22.3-36.8) Seconds Sodium 137 (137-145) mmol/L Potassium 3.8 (3.4-5.0) mmol/L Chloride 108 H (98-107) mmol/L Carbon Dioxide 28 (22-30) mmol/L Anion Gap 1 L (4-12) mmol/L BUN 12 (7-17) mg/dL Creatinine 0.80 (0.7-1.0) mg/dL Estim Creat Clear Calc 64 ml/min Estimated GFR > 60 (59 - ) Glucose 93 (65-110) mg/dL Calcium 8.8 (8.4-10.2) mg/dL Total Bilirubin 0.3 (0.2-1.3) mg/dL AST 21 (14-36) U/L ALT 13 (6-35) U/L Alkaline Phosphatase 67 (38-126) U/L Total Protein 7.3 (6.3-8.2) g/dL Albumin 4.2 (3.5-5.1) g/dL Lipase 132 (23-300) U/L Urine Color Yellow (Yellow) Urine Appearance Cloudy H (Clear) Urine pH 5.0 (5.0-9.0) Ur Specific [place] 1.023 (1.001-1.035) Urine Protein Negative (Negative) mg/dL Urine Glucose (UA) Negative (Negative) mg/dL Urine Ketones Negative (Negative) mg/dL Ur Blood (Man) Negative (Negative) Urine Nitrate Negative (Negative) Urine Bilirubin Negative (Negative) Urine Urobilinogen 0.2 (<2.0) mg/dL Leukocyte Esterase Rfl Negative (Negative) HERMAN/UL Urine RBC 0-2 (0-2) /hpf Urine WBC 0-5 (0-3) /hpf Ur Squamous Epith Cells Occasional (Few) /hpf Urine Bacteria None seen /hpf Urine Casts 0-2 Imaging Data Radiologist's impression: Impressions Abdomen/Pelvis CT 02/25/24 18:24 IMPRESSION: 1. Right inguinal hernia containing fat. Discharge Plan Discharge Clinical Impression: Dysuria Patient Disposition: Home, Self-Care Condition: Stable Instructions: Antibiotic Form, Dysuria (ED) Additional Instructions: Continue to have close follow-up with OB Gyne. Have close follow-up with Urology. Pyridium as needed for urinary symptoms. If you have any worsening symptoms then please call or return to the emergency department. Patient Language: Sudanese Prescriptions: New phenazopyridine [Pyridium] 100 mg tablet 100 mg PO TID PRN (Reason: pain) Qty: 6 0RF No Action rosuvastatin 5 mg tablet 5 mg PO DAILY losartan 50 mg tablet 50 mg PO DAILY valacyclovir 1 gram tablet 1,000 mg PO DAILY esomeprazole magnesium [Nexium] 40 mg Capsule,Delayed Release(Dr/Ec) 40 mg PO DAILY ferrous sulfate 47.5 mg iron Tablet Extended Release 143 mg PO DAILY hydrocodone-acetaminophen 5-325 mg tablet 1 tablet PO Q6H PRN (Reason: Pain) hydrocodone-acetaminophen 5-325 mg tablet 1 tablet PO Q4H PRN (Reason: pain) Qty: 25 0RF levofloxacin 500 mg tablet 500 mg PO DAILY Qty: 10 5RF estradiol 1 mg tablet 1 mg PO DAILY Qty: 30 12RF metronidazole 500 mg tablet 500 mg PO Q12H Qty: 20 0RF ondansetron 4 mg Film 4 mg PO Q6H PRN (Reason: Nausea) Qty: 25 0RF hydrocodone-acetaminophen 5-325 mg tablet 1 tablet PO Q4H PRN (Reason: pain) Qty: 25 0RF epinephrine 0.3 mg/0.3 mL auto-injector 0.3 mg IM ONCE Qty: 2 0RF Rx Instructions: as a single dose; may repeat once Follow-up/Referrals: Janak Ayala MD [Primary Care Provider] -
[2024-02-25] MEDS: PHENAZOPYRIDINE HCL 100 MG TABLET 200 MG PO (18:56)
== END 2024-02-25 19:00 | disposition home or self-care (01) ==
PROVIDERS: Registered Nurse; Emergency Provider Emergency Medicine; PCP Obstetrics & Gynecology
DX: R30.0 Dysuria (principal); I10 Essential (primary) hypertension; E78.5 Hyperlipidemia, unspecified; F17.210 Nicotine dependence, cigarettes, uncomplicated; Z87.440 Personal history of urinary (tract) infections; Z90.49 Acquired absence of other specified parts of digestive tract; Z90.710 Acquired absence of both cervix and uterus; Z79.899 Other long term (current) drug therapy; Z79.890 Hormone replacement therapy; K40.90 Unilateral inguinal hernia, without obstruction or gangrene, not specified as recurrent
CPT/HCPCS: 36415; 74177; 80053; 81001; 83690; 85025; 85610; 85730; 96372; 99284; A9270; J1885; Q9967

== ENCOUNTER 2024-09-09 15:31 | Outpatient (CLI) | payer OTHER, SELFPAY ==
--- NOTE | ~2024-09-09 | MR_ITS ---
MRI of the cervical spine Clinical History: Pain Technique: Axial T2-weighted and gradient images, and sagittal T1-weighted, T2-weighted, and STIR joanne ges were acquired. Findings: There is anterior fusion from C4 to C7, with associated hardware and susceptibility artifac t. No fracture or subluxation evident. No suspicious bone marrow signal abnormality identified. At C2-C3, there is no disc bulge or herniation. No spinal canal stenosis, cord compression, or neural foraminal narrowing. There is mild left facet arthropathy. At C3-C4, there is minimal disc osteophyte complex. No spinal canal stenosis, cord compression, or de finite neural foraminal narrowing. At C4-C5, there is no canal stenosis or cord compression. No neural foraminal narrowing evident. At C5-C6, there is no definite canal stenosis or cord compression. Possible mild bilateral neural for aminal narrowing. At C6-C7, there is no spinal canal stenosis or cord compression. Neural foramina appear preserved. No abnormal signal seen in the spinal cord. Paravertebral soft tissues are unremarkable. Impression: Postoperative change from C4 through C7, as above. Minimal degenerative change, as above. Reviewed, dictated and finalized at [facility]. Impression: Postoperative change from C4 through C7, as above. Minimal degenerative change, as above.
--- OUTSIDE RECORDS SUMMARY | 2024-09-09 15:40 | XMS_ITS | Clinical Summary ---
Author Organization [facility] Address [address] [place] [address] Care Team Providers Care Programming Manager Name Role Phone Sabino Cortes MD Primary Care Provider [phone] Regan Jang MD Unavailable [phone] Source Comments [facility],non-owned Affiliates and Associated Physician Practices is amultiple site organization consisting of ambulatory clinics and hospital sitesin [place] and [place]. This disclosure is being madepursuant to the Care Everywhere program and may not contain all information available regarding this patient. Last updated 17.[facility] Allergies Active Allergy Reactions Criticality Noted Date Comments Gabapentin Urticaria,Unknown Medium 10/25/2021 Meperidine Urticaria,Unknown,Rash Medium 11/02/2020 Medications * Be aware that medications may not be up to date on this document. Alwaysverify current medications with the patient. acyclovir (Zovirax) 200 MG capsule 1 (one) capsule Act jordi albuterol HFA (Proventil; Ventolin; Proair) 108 (90 Base) MCG/ACT inhaler Inhale 2 (two) puffs by mouth 4 times daily as needed 3 Active aspirin-acetami nophen-caffeine (Excedrin Migraine) 250-250-65 MG tablet Excedrin Extra Strength unspecified unspecified Active cetirizine (ZyrTEC) 10 MG tablet Take 1 (one) tablet by mouth once daily 3 Active esomeprazole (NexIUM) 40 MG capsule TAKE 1 CAPSULE BY MOUTH EVERY DAY BEFORE MEALS Active estradiol (Estrace) 1 MG tablet Take 1 (one) tablet by mouth once daily 3 Active rosuvastatin (Crestor) 5 MG tablet Take 1 (one) tablet by mouth once daily 3 Active valACYclovir (Valtrex) 1 GM tablet Take 1 (one) tablet by mouth once daily 3 Active Active Problems No known active problems Social History Tobacco Use Types Packs/Day Years Used Date Smoking Tobacco: Every Day Cigarettes 0.5 45.4 Started: 04/10/1979 Smokeless Tobacco: Never Tobacco Cessation:Ready to Q uit: Not Asked; Counseling Given: Not Answered Comments Unknown Sex and Gender Information Value Date Recorded Sex Assigned at Not on file Legal Sex Female 8:49 AM CDT Gender Identity Not on file Sexual Orientation Not on file Last Filed Vital Signs Vital Sign Reading Time Taken Comments Blood Pressure 126/58 05/19/2024 10:20 AM CDT Pulse 68 05/19/2024 10:20 AM CDT Temperature 36.3 C (97.3 F) 04/10/2024 1:03 PM FICTION AND NONFICTION PROSE WRITER Respiratory Rate 16 05/19/2024 10:20 AM CDT Oxygen Saturation 96% 04/10/2024 1:03 PM FICTION AND NONFICTION PROSE WRITER Inhaled Oxygen Concentration - - Weight 69.9 kg (154 lb) 05/19/2024 10:20 AM CDT Height 162.6 cm (5' 4) 05/19/2024 10:20 AM CDT Body Mass Index 26.43 05/19/2024 10:20 AM CDT Plan of Treatment Health Maintenance Due Date Last Done Comments COLOGUARD (AGES 45-75) - COLON CA SCREENING 1967 CT COLONOGRAPHY - COLON CA SCREENING 1965 FIT - COLON CA SCREENING 1965 FLEX SIG - COLON CA SCREENING 1965 MAMMOGRAM 1965 HIV SCREENING 10/26/1982 HEPATITIS C SCREENING 10/22/1985 DTAP/TDAP/TD VACCINES (1 - Tdap) 10/26/1986 HEPATITIS B VACCINE (1 of 3 - 19+ 3-dose series) 10/26/1986 PNEUMOCOCCAL VACCINE 50+ (1 of 2 - PCV) 10/26/1986 PAP SMEAR 10/26/1988 ZOSTER VACCINE (1 of 2) 10/26/2017 COVID-19 VACCINE (3 - season) 2023 09/10/2020, 08/20/2020 DEPRESSION SCREENING 03/11/2024 SCREENING FOR DIABETES 10/11/2024 10/11/2021 INFLUENZA VACCINE (Season Ended) 2024 01/01/2023, 12/09/2021, 12/09/2020, Additional history exists LUNG CANCER SCREENING 03/19/2025 03/19/2024 COLON MONITORING 03/11/2033 03/11/2023, 07/19/2021 COLONOSCOPY - COLON CA SCREENING 03/11/2033 03/11/2023, 07/19/2021 Colorectal Cancer Screening 03/11/2033 HIB VACCINE Aged Out No longer eligi ble based on patient's age to complete this topic HPV VACCINE Aged Out No longer eligi ble based on patient's age to complete this topic MENINGOCOCCAL (Group B) VACCINE SHARED DECISION-MAKING Aged Out No longer eligible based on patient's age to complete this topic MENINGOCOCCAL GROUPS A/C/Y/W VACCINE Aged Out No longer eligible based on patient's age to complete this topic Insurance MEDICARE MANAGED CARE PLAN GENERIC MEDICARE ADV Care Teams Programming Manager Relationship Specialty Start Date End Date Sabino Cortes MD [address] [place] [id number] PCP - General Gastroenterology 04/10/24 Regan Jang MD [address] [address] Surgeon Neurological Surgery 06/05/24
--- OUTSIDE RECORDS SUMMARY | 2024-09-09 15:40 | XMS_ITS | Referral Summary ---
Author Organization [address] Address [address] [place] [id number] Care Team Providers Care Shading Painter Name Role Phone Bravo Hernadez MD Unavailable [phone] Perez Jackson MD Unavailable [phone] Vince Reynoso MD Unavailable [phone] Dimas Nascimento MD Unavailable Sabino Cortes MD Unavailable [phone] Sabino Cortes MD Primary Care Provider Allergies Active Allergy Reactions Criticality Noted Date Comments Gabapentin Hives Medium 10/25/2021 Meperidine Rash Medium 07/04/2021 Medications valACYclovir (VALTREX) 1 gram tablet Take 1 tablet (1,000 mg total) by mouth daily 2 Active HYDROcodone-eduarda taminophen (NORCO) 5-325 mg per tablet TAKE 1 TABLET BY MOUTH DAILY FOR 7 DAYS NEEDED FOR SEVERE PAIN 2 Active losartan (COZAAR) 50 mg tablet Take 1 tablet (50 mg total) by mouth daily 2 Active estradioL (ESTRACE) 2 mg tablet estradiol 2 mg tablet Active Bijuva 1-100 mg capsule 2 Active fluticasone propionate (FLONASE) 50 mcg/actuation nasal spray fluticasone propionate 50 mcg/actuation nasal spray,suspension SHAKE LIQUID AND USE 1 SPRAY IN EACH NOSTRIL TWICE DAILY FOR 10 DAYS Active testosterone cypionate (DEPO-TESTOTERO NE) 200 mg/mL injection 0.25 mL (50 mg total) Active progesterone (PROMETRIUM) 100 mg capsule Take 2 capsules (200 mg total) by mouth nightly 2 Active albuterol HFA (PROVENTIL HFA,VENTOLIN HFA,PROAIR HFA) 90 mcg/actuation inhaler INHALE 2 PUFFS BY MOUTH EVERY 4 HOURS NEEDED FOR SHORTNESS OF BREATH 18 [address] (PROTONIX) 40 mg EC tablet Take 1 tablet (40 mg total) by mouth daily 90 tablet 3 3 Active diazePAM (VALIUM) 5 mg tablet Take 1-2 tablets (5-10 mg total) by mouth nightly as needed for anxiety 60 tablet 3 Active rosuvastatin (CRESTOR) 5 mg tablet TAKE 1 TABLET(5 MG) BY MOUTH DAILY 90 tablet 3 Active Active Problems Problem Noted Date Diagnosed Date RADHA (generalized anxiety disorder) 11/03/2021 Essential hypertension 11/03/2021 Complication of surgical procedure 10/25/2021 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 Postmenopausal bleeding 09/02/2021 Abnormal uterine bleeding 09/02/2021 Vasomotor symptoms due to menopause 09/02/2021 Epigastric pain 07/13/2021 Overview (07/13/2021): Added automatically from request for surgery [id number] Cervical disc disorder with radiculopathy 2021 Spinal stenosis in cervical region 07/03/2021 Cervical spondylosis without myelopathy 07/04/19 Lumbosacral spondylosis without myelopathy 07/03 Chest pain 11/02/2020 Dyslipidemia 11/02/2020 Nicotine dependence 11/02/2020 Encounter for health-related screening Routine adult health maintenance 05/25/2020 Overview (05/25/2020): Health Maintenance: -PCV13 vaccine: N/A -PPSV23 vaccine: -Tdap vaccine: -Influenza vaccine: -Shingles vaccine: -Colonoscopy: -Last WWE: -Last Mammogram: -Last DEXA: N/A -Last eye exam: -Last MHA: N/A Resolved Problems Problem Noted Date Diagnosed Date Resolved Date Fibroids 09/02/2021 01/22/2022 Immunizations Immunization Administration Dates Next Due HPV, Unspecified 12/09/2021 Influenza, Quadrivalent, Spl it, Intramuscular 12/02/2020 Influenza, Unspecified 12/09/2021,12/09/2020,03/2019 Pfizer SARS-CoV-2 Monovalent Vaccination (12+ Yrs) PURPLE 09/10/2020,08/20/2020,08/12/2020 Social History Tobacco Use Types Packs/Day Years Used Date Smoking Tobacco: Every Day Cigarettes Smokeless Tobacco: Never Tobacco Cessation:Ready to Q uit: Not Asked; Counseling Given: Not Answered Comments:pt may need counseling AUDIT-C Answer Date Recorded Q1: How often do you have a drink containing alc ohol? 2-3 times a week 10/25/2021 Q2: How many drinks containi ng alcohol do you have on a typical day when you are drinking? 1 or 2 10/25/2021 Q3: How often do you have si x or more drinks on one occasion? Never 10/25/2021 PHQ-2 Answer Date Recorded PHQ-2 Total Score (If total score is 3 or more points, staff should administer the PHQ-9) 0 01/22/2022 Comments No Sex and Gender Information Value Date Recorded Sex Assigned at Not on file Legal Sex Female 10:40 AM MILL HAND PLATE MILL Gender Identity Not on file Sexual Orientation Not on file Occupation Industry Job Start Date Job End Date On Disability Not on file Not on file Not on file Last Filed Vital Signs Vital Sign Reading Time Taken Comments Blood Pressure 122/76 01/22/2022 11:31 AM MILL HAND PLATE MILL Pulse 83 01/22/2022 11:31 AM MILL HAND PLATE MILL Temperature 36 C (96.8 F) 10/25/2021 1:00 PM CDT Respiratory Rate 18 08/18/2021 2:22 PM CDT Oxygen Saturation 99% 10/25/2021 1:00 PM CDT Inhaled Oxygen Concentration - - Weight 72.6 kg (160 lb) 01/22/2022 11:31 AM MILL HAND PLATE MILL Height 160 cm (5' 3) 01/22/2022 11:31 AM MILL HAND PLATE MILL Body Mass Index 28.34 01/22/2022 11:31 AM MILL HAND PLATE MILL Plan of Treatment Not on file Procedures Procedure Name Priority Date/Time Associated Diagnosis Comments CT LUNG CANCER SCREENING Schedule Routine, Read Routine (OP Routine) 03/19/2024 SCREENING MAMMOGRAM 2D BILATERAL Schedule Routine, Read Routine (OP Routine) 03/19/2024 COLONOSCOPY Routine 03/11/2023 2:49 PM MILL HAND PLATE MILL PAP AND HIGH RISK HPV, REFLEX TO GENOTYPING Routine 07/31/2021 9:35 AM CDT Abnormal uterine bleeding (AUB) Post-menopausal bleeding Screening for malignant neoplasm of cervix from Last 3 Months or Most Recently Relevant to Health Maintenance Results * Screening Mammogram 2D Bilateral (03/19/2024) SCRIBED BI-RADS 2 Anatomical Region Laterality Modality Breast Bilateral Mammography Historical Provider MD HUGHES MAMMO PROCEDURES Edit ed Result - Final * CT Lung Cancer Screening (03/19/2024) Anatomical Region Laterality Modality Chest N/A Computed Tomogra phy us Historical Provider MD HUGHES CT PROCEDURES Final R esult * Pap and High Risk HPV, reflex to Genotyping (07/31/2021 9:35 AM CDT) Thin prep (Pap test) 07/31/2021 9:35 AM CDT 07/31/2021 9:35 AM CDT Narrative PATHOLOGY CH - 08/03/2021 10:40 AM CDT [facility] of Pathology [address] [place] [id number] Final Report with Addendum Note to Patients: This report may contain a detailed description of human tissue sent by a health care provider to the laboratory for pathologic evaluation. The content of this report is essential for diagnosis and may provide important critical findings. This information may be unfamiliar to patients to review without a medical professional present. It is advised that the patient review this report in the presence of a health care provider who can answer questions and explain the details. Patient Name: ALEXANDRA HICKS Address: [address] [place] [address] Gender: F : 1965 (Age: 55) Service: Laboratory Location: Lab [facility] #: [id number] Patient Type: [place] Lab Taken: 07/31/2021 Received: 07/31/2021 Accessioned:: 08/01/2021 Reported: 08/03/2021 Physician(s): Emily Stacy Diagnosis: Source of Specimen: SCREENING THIN PREP IMAGED PAP w/ HPV Specimen Adequacy: - Specimen satisfactory for interpretation; endocervical/transformation zone component absent or insufficient General Category: - Negative for intraepithelial lesion or malignancy JIMBO King(ASCP) JIMBO Skelton(ASCP) Report Electronically Reviewed and Signed Out By JIMBO Skelton(ASC) 08/03/2021 10:40:44 Addenda: HPV Test Interpretation NEGATIVE for types 16, 18, 31, 33, 35, 39, 45, 51, 52, 56, 58, 59, 66 and 68. Test performed utilizing Gen-Probe Aptima assay. JIMBO Skelton(ASCP) Report Electronically Reviewed and Signed Out By JIMBO Skelton(ASC) 08/02/2021 09:26:43 Specimen(s) Received: A: SCREENING THIN PREP IMAGED PAP w/ HPV Clinical History: Last Menstrual Period: 07/29/21 Menstrual History: Post-menopausal Abnormal Bleeding: postmenopausal The Pap test is a screening test used to aid in the detection of cervical cancer and its precursors. It should not be the sole means by which malignant and premalignant lesions are diagnosed. Both false negative and false positive results may occur. It also has poor sensitivity for the detection of endometrial lesions and should not be used to evaluate suspected endometrial abnormalities. For these reasons it is most important to obtain Pap tests at regular intervals. The performance characteristics of some immunohistochemical stains, fluorescence in-situ hybridization tests and immunophenotyping by flow cytometry cited in this report (if any) were determined by the Surgical Pathology Department at [facility] as part of an ongoing quality assurance nurse program and in compliance with federally mandated regulations drawn from the Clinical Laboratory Improvement Act of 1988 (CLIA '88). Some of these tests rely on the use of analyte specific reagents and are subject to specific labeling requirements by the US Food and Drug Administration. Such diagnostic tests may only be performed in a facility that is certified by the Department of Health and Human Services as a high complexity laboratory under CLIA '88. The FDA has determined that such clearance or approval is not necessary. This test is used for clinical purposes. It should not be regarded as investigational or for research. Nevertheless, federal rules concerning the medical use of analyte specific reagents require that the following disclaimer be attached to the report: This test was developed and its performance characteristics determined by the Surgical Pathology Department [facility]. It has not been cleared or approved by the U. S. Food and Drug Administration. Emily Stacy MD LAB CYTOLOGY ORDERABLES Final Result PATHOLOGY [id number] [place] [address] * COLONOSCOPY (07/19/2021 2:59 PM CDT) Anatomical Region Laterality Modality Other Narrative Procedure Note Ulises Cazares MD - 07/19/2021 2:59 PM CDT [facility] Patient Name: Alexandra Hicks Procedure Date: 07/19/2021 2:59 PM Date of : 1965 Admit Type: Outpatient Age: 55 Gender: Female Note Status: Finalized Attending MD: Ulises Cazares M.D. Procedure Date: 07/19/2021 Procedure: Colonoscopy Indications: High risk colon cancer surveillance: Personalhistory of colonic polyps Patient Profile: This is a 55 year old female. Positive familyhistory of colon cancer. Providers: Ulises Cazares M.D., Larisa Lobato CRNA (Anesthesia Staff), Kim Antonio RN, Mohit, Radio Recorder Referring MD: Anuj Chao M.D. Medicines: Monitored Anesthesia Care Complications: No immediate complications. Estimated Blood Loss: Estimated blood loss: none. Procedure: Pre-Anesthesia Assessment: - ASA Grade Assessment: II - A patient with mild systemic disease. - The risks and benefits of the procedure and the sedation options and risks were discussed with the patient. All questions were answered and informed consent was obtained. After I obtained informed consent, the scope was passed under direct vision. Throughout theprocedure, the patient's blood pressure, pulse, and oxygen saturations were monitored continuously. The scopewas passed under direct vision. The Colonoscope was introduced through the anus and advanced to thececum, identified by appendiceal orifice and ileocecalvalve. The colonoscopy was performed without difficulty.The patient tolerated the procedure well. The qualityof the bowel preparation was evaluated using the BBPS ([place] Bowel Preparation Scale) with scores of:Right Colon = 2 (minor amount of residual staining, small fragments of stool and/or opaque liquid, but mucosa seen well), Transverse Colon = 2 (minor amount of residual staining, small fragments of stool and/or opaque liquid, but mucosa seen well) and Left Colon= 2 (minor amount of residual staining, smallfragments of stool and/or opaque liquid, but mucosa seenwell). The total BBPS score equals 6. The quality of the bowel preparation was good. The quality of thebowel preparation was good. The bowel preparation usedwas SUPREP via extended prep with split doseinstruction. Bowel prep was administered using a split dose. Findings: Skin tags were found on perianal exam. The entire examined colon appeared normal on direct and retroflexion views. Impression: - Perianal skin tags found on perianal exam. - The entire examined colon is normal on direct and retroflexion views. - No specimens collected. Recommendation: - Discharge patient to home. - Repeat colonoscopy in 5 years for surveillance. Electronically signed by Ulises Cazares MD Ulises Cazares M.D. 07/19/2021 3:44:31 PM Number of Addenda: 0 Note Initiated On: 07/19/2021 2:59 PM Ulises Cazares MD ENDOSCOPY PROCEDURES Final Re sult from Last 3 Months or Most Recently Relevant to Health Maintenance Insurance [place]ARE [facility] IDPA Care Teams Shading Painter Relationship Specialty Start Date End Date Sabino Cortes MD [facility] [address] PCP - General Gastroenterology 10/29/23 Bravo Hernadez MD [address] [place] [address] Consulting Physician Family Medicine 05/06/20 Perez Jackson MD [address] [place], [place] [address] Consulting Physician Neurosurgery 08/18/21 Vince Reynoso MD [address] [place] [address] Consulting Physician Pain Management 10/06/21 Dimas Nascimento MD [address] [place] [address] Consulting Physician Cardiology 02/11/22 Sabino Cortes MD [address] [place] [id number] Consulting Physician Gastroenterology 01/29/23
--- OUTSIDE RECORDS SUMMARY | 2024-09-09 15:40 | XMS_ITS | Clinical Summary ---
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 12/10/2022 Active valACYclovir (VALTREX) 1 GM Tablet Take 1,000 mg by mouth daily. 11/07/2022 Active rosuvastatin (CRESTOR) 5 MG Tablet 11/13/2022 Active estradiol (ESTRACE) 1 MG Tablet Take 1 mg by mouth daily. 12/03/2022 Active testosterone cypionate (DEPO-TESTOSTERO NE) 200 MG/ML Solution 50 mg. Active diazePAM (VALIUM) 5 MG Tablet TAKE 1 TABLET BY MOUTH EVERY NIGHT AT BEDTIME. 11/06/2022 Active albuterol 108 (90 Base) MCG/ACT Aerosol Solution INHALE 2 PUFFS BY MOUTH FOUR TIMES DAILY NEEDED 12/24/2022 Active omeprazole (PriLOSEC) 40 MG CAPSULE DELAYED RELEASE Take 40 mg by mouth daily. 02/22/2023 Active HYDROcodone-acet aminophen (NORCO) 5-325 MG Tablet TAKE 1 TABLET BY MOUTH TWICE DAILY NEEDED Active EPINEPHrine (EPIPEN) 0.3 MG/0.3ML Solution Auto-injector Active oxybutynin (DITROPAN-XL) 10 MG TABLET SR 24 HR Active Active Problems Problem Noted Date Diagnosed Date Elevated serum tryptase 01/03/2023 Lymphocytosis 12/27/2022 Encounters Date Type Department Care Team Description 08/29/2024 9:27 AM CDT - 08/29/2024 11:59 PM CDT Hospital Encounter [facility] MRI [address] [place] [address] Jr Hobson MD Discharge Disposition: Discharged to home or Selfcare 08/29/2024 Travel 07/24/2024 2:00 PM CDT Procedure Visit [facility] [address] [place] [address] Jr Hobson MD Recurrent UTI (Primary Dx); OAB (overactive bladder); Urethral diverticulum Discharge Disposition: Discharged to home or Selfcare 07/24/2024 Travel from Last 3 Months Immunizations Immunization Administration Dates Next Due Hpv, Unspecified Formulation 12/09/2021 Influenza Vaccine, Quadrivalent, PF 01/01/2023 Influenza, Injectable, Quadrivalent 12/02/2020 Family History Medical History Relation Name Comments No Known Problems Daughter No Known Problems Father Diabetes Half-Brother Congenital Heart Disease Half-Sister Ovarian Cancer Half-Sister Congenital Heart Disease Mother Diabetes Mother Hypertension Mother Stroke Mother No Known Problems Son Relation Name Status Comments Daughter Alive Father Half-Brother Alive Half-Sister Alive Mother Son Alive Social History Tobacco Use Types Packs/Day Years Used Date Smoking Tobacco: Every Day Cigarettes 0.8 41.5 Started: 1983 Smokeless Tobacco: Never Tobacco Cessation:Ready to Q uit: Not Asked; Counseling Given: Not Answered Alcohol Use Standard Drinks/Week Comments Not Currently 0 (1 standard drink = 0.6 oz pur e alcohol) twice a yr Sexually Active Control Partners Comments Not Currently Male Comments No Sex and Gender Information Value Date Recorded Sex Assigned at Not on file Legal Sex Female 1:19 PM CDT Gender Identity Not on file Sexual Orientation Not on file Last Filed Vital Signs Vital Sign Reading Time Taken Comments Blood Pressure 123/80 07/24/2024 1:28 PM CDT Pulse 77 07/24/2024 1:28 PM CDT Temperature 36.4 C (97.6 F) 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 Respiratory Rate 14 07/24/2024 1:28 PM CDT Oxygen Saturation 99% 07/24/2024 1:28 PM CDT Inhaled Oxygen Concentration - - Weight 69.9 kg (154 lb) 07/24/2024 1:28 PM CDT Height 165.1 cm (5' 5) 07/24/2024 1:28 PM CDT Body Mass Index 25.63 07/24/2024 1:28 PM CDT Plan of Treatment Upcoming Encounters Date Type Department Care Team (Late st Contact Info) Description 10/26/2024 2:45 PM CDT Office Visit [facility] [address] [place] [address] Yg Quijano, SHANK FAKER, SHOE TREER [address] [place] [address] Health Maintenance Due Date Last Done Comments Hepatitis C Virus (HCV) Screening 1965 TdaP Immunization 1965 Hepatitis B Immunization (1 of 3 - 19+ 3-dose series) 10/26/1986 Pneumococcal Immunization (50+ years) (1 of 2 - PCV) 10/26/1986 Cologuard 10/26/2012 Immunochemical Fecal Occult Blood 10/26/2012 Lung Cancer Screening 10/26/2017 Zoster Immunization (1 of 2) 10/26/2017 SARS-COV-2 Immunization ( season) 2023 03/09/2021, 09/10/2020, 08/20/2020 Influenza Immunization (Season Ended) 2024 01/01/2023, 12/09/2021, 12/09/2020, Additional history exists Mammogram 03/19/2025 03/19/2024, 01/25/2023 Colonoscopy 03/11/2033 03/11/2023, 07/19/2021 Colorectal Cancer Screening 03/11/2033 Respiratory Syncytial Virus (RSV) Immunization (Adult) (1 - 1-dose 75+ series) 10/26/2042 Human Papillomavirus (HPV) Immunization Aged Out 12/09/2021 No longer eligible based on patient's age to complete this topic Meningococcal Immunization (ACWY) Aged Out No longer eligible based on patient's age to complete this topic Rotavirus Immunization Aged Out No lo nger eligible based on patient's age to complete this topic Procedures Procedure Name Priority Date/Time Associated Diagnosis Comments MRI PELVIS W/WO CONTRAST Routine 025 10:12 AM CDT Urethral diverticulum CYSTOURETHROSCOPY Routine 07/24/2024 2:0 0 PM CDT Recurrent UTI POCT UA AUTOMATED W/O MICRO Routine 07/24/2024 1:20 PM CDT Recurrent UTI OAB (overactive bladder) from Last 3 Months Results * MRI PELVIS W/WO CONTRAST (08/29/2024 10:12 AM CDT) Anatomical Region Laterality Modality Abdomen, Pelvis N/A Magnetic Resonan ce 09/09/2024 1:28 PM CDT Impressions 09/09/2024 1:30 PM CDT IMPRESSION: 1. No urethral diverticulum. 2. Septate uterus, normal variant. Narrative 09/09/2024 1:30 PM CDT EXAM DESCRIPTION: MRI PELVIS W/WO CONTRAST REASON FOR STUDY: cystoscopy due to recurrent UTIs 07/24/24 revealed a small divot in the urethra, which could be a urethral diverticulum. MRI for further evaluation. TECHNIQUE: MRI of the pelvis performed without intravenous contrast according to the urethra protocol. All images stored on PACS. COMPARISON: None FINDINGS: BLADDER/URETHRA: No focal bladder wall thickening or nodularity. No diverticula RIGHT OVARY: Normal size. No masses. LEFT OVARY: Normal size. No masses. UTERUS: Septate uterus, normal variant. No masses. Normal endometrium. Junctional zone normal. VAGINA: Normal. PELVIC SIDEWALL: Normal. No masses. LYMPH NODES: No pathologically enlarged lymph nodes. GI: Normal. MUSCULOSKELETAL: No abnormal marrow signal. OTHER: No other significant finding. THIS IS AN ELECTRONICALLY VERIFIED FINAL REPORT 09/09/2024 1:28 PM - Electronically signed by Trena Lyons M.D. FT: FT Report ID: [id number] Reading Location: [id number] Procedure Note Trena Nelson MD - 09/09/2024 EXAM DESCRIPTION: MRI PELVIS W/WO CONTRAST REASON FOR STUDY: cystoscopy due to recurrent UTIs 07/24/24 revealed a small divot in the urethra, which could be a urethral diverticulum. MRI for further evaluation. TECHNIQUE: MRI of the pelvis performed without intravenous contrast according to the urethra protocol. All images stored on PACS. COMPARISON: None FINDINGS: BLADDER/URETHRA: No focal bladder wall thickening or nodularity. No diverticula RIGHT OVARY: Normal size. No masses. LEFT OVARY: Normal size. No masses. UTERUS: Septate uterus, normal variant. No masses. Normal endometrium. Junctional zone normal. VAGINA: Normal. PELVIC SIDEWALL: Normal. No masses. LYMPH NODES: No pathologically enlarged lymph nodes. GI: Normal. MUSCULOSKELETAL: No abnormal marrow signal. OTHER: No other significant finding. THIS IS AN ELECTRONICALLY VERIFIED FINAL REPORT 09/09/2024 1:28 PM - Electronically signed by Trena Lyons M.D. FT: FT Report ID: [id number] Reading Location: [id number] IMPRESSION: 1. No urethral diverticulum. 2. Septate uterus, normal variant. Jr Ying MD IM MR ORDERABLES Final Result * CYSTOURETHROSCOPY (07/24/2024 2:00 PM CDT) Narrative Jr Hobson MD - 07/24/2024 2:00 PM CDT Jr Hobson MD 07/24/2024 4:02 PM Cystoscopy Procedure Note Date of Visit: 07/24/2024 Cystourethroscopy Alexandra Hicks is a 58 y.o. female who presents for cystoscopy. Indication(s): Recurrent UTIs. Verbal and written consent was obtained. Risks including infection, bleeding, pain, urethral/bladder injury, non-diagnostic study, UTI discussed with patient who consents to procedure. Urinalysis: Urine dipstick shows negative nitrites. Procedure: The patient was positioned in the supine position on the procedure table. The patient was then placed in the dorsal lithotomy position with all pressure points padded again. The lower abdomen, perineum, urethra were prepped in the usual fashion. Local anesthesia with 1% lidocaine jelly was administered transurethrally. A well lubricated 16 Indonesian flexible cystoscope was introduced transurethrally. Findings: Urethra: There was an os noted in the mid urethra along the patient's left side. This correlates to a small mass in the anterior vaginal wall. Somewhat concerning for a possible urethral diverticulum Bladder: No stones, tumors, lesions. No trabeculations, diverticuli. Bilateral UO in orthotopic position with clear efflux The patient tolerated the procedure well. Specimen sent: UCx Plan: See progress note Jr Ying MD [place] - SURGERY Final Result * POCT UA AUTOMATED W/O MICRO (07/24/2024 1:20 PM CDT) POC UA SPECIFIC GRAVITY 1.010 URINE PH 6.0 5.0 - 9.0 POC URINE LEUKOCYTES Negative Negative Marianne/uL POC URINE NITRITE Negative Negative POC URINE PROTEIN Negative Negative mg/dL POC URINE GLUCOSE Norm Negative, Norm mg/dL POC URINE KETONE Negative Negative mg/dL POC URINE UROBILINOGEN Norm Norm, 0.2 E.U./dL (mg/dL), 1 E.U./dL (mg/dL) POC URINE BILIRUBIN Negative Negative mg/dL POC URINE BLOOD INSTRUMENT Negative Negative John/uL POC URINE COLOR Yellow POC URINE CLARITY Clear Urine 07/24/2024 1:20 PM CDT Jr Ying MD POINT OF CARE TESTING (MANUAL) Final Result from Last 3 Months Insurance MEDICARE C [employer] MEDICARE C [employer] Care Teams Reverberatory Furnace Supervisor Relationship Specialty Start Date End Date Sabino Cortes MD [address] [place] [id number] PCP - General Internal Medicine 12/26/22 Mann Esteban MD [address] [place] [phone] Consulting Physician Oncology 12/26/22 Tirso Watson MD [address] [address] Consulting Physician Colon and Rectal Surgery 04/15/24 Yg Quijano APRN, SHOE TREER [address] [place] [address] Nurse Practitioner Advanced Practice Nurse 05/11/24 Jr Hobson MD [address] [address] Consulting Physician Urology 07/22/24
--- OUTSIDE RECORDS SUMMARY | 2024-09-09 15:40 | XMS_ITS | Data Portability ---
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 Plan of Treatment Reminders Order Date Submit Date Provider Last Modified By Organization Details Last Modified Time Details Appointments ANY 30 2024 03:00P M Olivia Moore MD Not available Not available Not available Lab CMP, serum or plasma 2023 024 GÓMEZ [facility] (Centralized Electronic Ordering - All Locations), Patient Can Go To The Location Of Their Choice, [id number] 01/23/2024 06:22:36 lipid panel, serum 2023 024 GÓMEZ [facility] (Centralized Electronic Ordering - All Locations), Patient Can Go To The Location Of Their Choice, 01/23/2024 06:22:35 CBC 2023 024 GÓMEZ [facility] (Centralized Electronic Ordering - All Locations), Patient Can Go To The Location Of Their Choice, [id number] 01/23/2024 06:22:37 drug screen, 14 drugs (detect imed), urine 2023 024 GÓMEZ [facility] (Centralized Electronic Ordering - All Locations), Patient Can Go To The Location Of Their Choice, 10/26/2023 17:08:55 urinaly sis, dipstic k 2023 024 [email or web address] In-Office Order, Internal Use Only DO Not Attach Compendium DO Not Attach Compendium, Do Not Delete/merge, [id number] 10/21/2023 15:22:12 Referral pain managem ent referra l 2024 025 GÓMEZ Marshall MD, [address], [address], [place], [address], 08/27/2024 04:24:31 gastroe nterolo gist referra l 2024 025 GÓMEZ Gaytan MD, [address], [address], [place], [address], 08/26/2024 08:07:[address]i st referra l - [place] Locatio n 2024 025 juan [facility], [address] [place], [address], 07/06/2024 12:56:52 neurolo gical surgeon referra l - The client has an appt on 03/27/24 . Resubmi tted referra l to include last MRI. 2023 024 GÓMEZ Jang M.D., [address] [place], [address], 04/17/2024 15:21:53 Procedures None recorde d. Surgeries None recorde d. Imaging MRI, cervica l spine, w/o contras t - #[id number] , effecti ve 025 - 025, for procedu re code [id number] 2024 025 [facility], [address] [place] [address] [address], [place], [address], 09/07/2024 13:17:05 MRI, thoraci c spine, w/o contras t - Authori zation approve d #[id number], effecti ve 025 - 025, for procedu re code [id number] 2024 025 [facility] (Imaging), [address], [place], [address], 09/07/2024 13:22:42 LDCT, chest, for lung cancer screeni ng 2023 024 [facility], [address] [place], [address], 03/19/2024 17:13:25 MRI, cervica l spine, w/o contras t 2023 024 [facility] ([facility]), [address] [place], [address], 08/17/2024 17:34:00 MRI, thoraci c spine, w/o contras t 2023 024 [facility] ([facility]), [address] [place], [address], 09/02/2024 14:52:38 MRI, lumbar spine, w/o contras t 2023 024 [facility], [address] [place], [address], 02/05/2024 17:09:45 MAMMO, screeni ng, digital , bilater al 2023 024 [facility] ([facility]), [address] [place], [address], 03/23/2024 09:25:27 Medication Orders hydroco done 5 mg-acet aminoph en 325 mg tablet 2024 025 [id number], [address], [place], [place], [id number], 08/12/2024 17:52:29 benzona altamirano 200 mg capsule 2024 025 [facility], [address], [place], [place], [id number], 06/01/2024 17:54:56 hydroco done 5 mg-acet aminoph en 325 mg tablet [address] [facility]91514, [address], [place], [place], [id number], 06/01/2024 17:54:24 diazepa m 5 mg tablet [address] [facility]35191, [address], [place], [place], [id number], 06/01/2024 17:54:24 hydroco done 5 mg-acet aminoph en [address] [facility] #14528, [address], [place], [place], [id number], 10/21/2023 15:22:31 hydroco done 5 mg-acet aminoph en [address] [facility] #17107, [address], [place], [place], [id number], 07/22/2023 15:46:54 Patient TargetsNo targets recorded. Patient Instructions Encounter Date Encounter Id Patient Instructions Last Modified By Organization Details Last Modified Time 10/21/2023 [id number] deciding about using medicines to quit smoking [email or web address] Not available 10/21/2023 15:22:06 Quitting Tobacco : Care Instructions [email or web address] Not available 10/21/2023 15:22:06 back care and preventing injuries: care instructions [email or web address] Not available 10/21/2023 15:22:05 learning about high white blood cell counts [email or web address] Not available 10/21/2023 15:22:06 learning about high blood pressure [email or web address] Not available 10/21/2023 15:22:05 01/20/2024 [id number] deciding about using medicines to quit smoking [email or web address] Not available 01/20/2024 15:27:21 Quitting Tobacco : Care Instructions [email or web address] Not available 01/20/2024 15:27:21 learning about breast cancer screening [email or web address] Not available 01/20/2024 15:27:21 learning about high blood pressure [email or web address] Not available 01/20/2024 15:27:21 06/01/2024 [id number] cough: care instructions [email or web address] Not available 06/01/2024 17:54:52 learning about high blood pressure Not available 06/01/2024 17:54:24 learning about mood disorders [email or web address] Not available 06/01/2024 17:54:24 08/12/2024 [id number] deciding about using medicines to quit smoking [email or web address] Not available 08/12/2024 17:55:01 Quitting Tobacco : Care Instructions [email or web address] Not available 08/12/2024 17:55:01 A healthy lifestyle: care instructions [email or web address] Not available 08/12/2024 23:58:10 learning about high blood pressure [email or web address] Not available 08/12/2024 17:55:01 Reason for Referral Neurological Surgeon Anita pastor for Low back pain Chronic back pain The client has an appt on 03/27/24. Resubmitted referral to include last MRI. Referring Physician: Sabino Bhandari, Internal Medicine, Encounter Date: 10/21/2023 Physical Therapist Referral for Chronic back pain [place] Location Referring Physician: Sabino Bhandari Internal Medicine, Encounter Date: 06/01/2024 Head Of Housekeeping Referral for Gastro-esophageal reflux disease with ulceration Persistent GERD sx on PPI. Hx erosive esophagitis Referring Physician: Sabino Bhandari Internal Medicine, Encounter Date: 06/01/2024 Pain Management Referral for Pain of multiple joints Referring Physician: Sabino Bhandari Internal Medicine, Encounter Date: 08/12/2024 Results Created Date Observation Date Name Description Value Unit Range Abnormal Flag Note LastModifiedBy Organization Detail LastModifiedTime 09/30/19 24 09/30/2023 Bacte kenny ident ified in Urine by Cultu re result report SEE RESULT S BELOW abnormal resul t repor t Not Available Not Available 06/12/2024 11:28:30 10/21/19 24 10/26/2023 COMPL IANCE DRUG MARCIA SIS, UR summary report (summary) FINAL ===== ===== ===== ===== ===== ===== ===== ===== ===== ===== ===== ===== ===== === TOXAS SURE COMP DRUG MARCIA SIS,U R ===== ===== ===== ===== ===== ===== ===== ===== ===== ===== ===== ===== ===== === Test Resul t Flag Units Drug Prese nt Carbo xy-TH C 1160 ng/mg creat Carbo xy-TH C is a metab olite of tetra hydro canna binol (THC) . Sourc e of THC is most commo nly herba l marij uana or marij uana- based produ cts, but THC is also prese nt in a sched uled presc ripti on medic ation . Trace amoun ts of THC can be prese nt in hemp and canna bidio l (CBD) produ cts. This test is not inten ded to disti nguis h betwe en delta -9-te trahy droca nnabi nol, the predo minan t form of THC in most herba l or marij uana- based produ cts, and delta -8-te trahy droca nnabi nol. Isaban morph one 181 ng/mg creat Norhy droco done 147 ng/mg creat Isaban morph one and norhy droco done are expec feliciano metab olite s of hydro codon e. Sourc es of hydro codon e are sched uled presc ripti on medic ation s. Isaban morph one is also avail able as a sched uled presc ripti on medic ation . Aceta minop hen PRESE NT ===== ===== ===== ===== ===== ===== ===== ===== ===== ===== ===== ===== ===== === Test Resul t Flag Units Ref Range Creat inine 58 mg/dL >=20 ===== ===== ===== ===== ===== ===== ===== ===== ===== ===== ===== ===== ===== === Decla red Medic ation s: Medic ation list was not provi ded. ===== ===== ===== ===== ===== ===== ===== ===== ===== ===== ===== ===== ===== === For clini sonal consu ltati on, pleas e call . ===== ===== ===== ===== ===== ===== ===== ===== ===== ===== ===== ===== ===== === Not Available [facility] ([facility]) [address] [facility], [place], [address], 10/26/2023 17:08:55 10/21/19 24 10/26/2023 COMPL IANCE DRUG MARCIA SIS, UR pdf . Not Available [facility] ([facility]) [address] [facility], [place], [address], 10/26/2023 17:08:55 10/21/19 24 10/21/2023 urina lysis , dipst ick Leukocytes Negati ve Not Available In-Office Order Internal Use Only DO Not Attach Compendium DO Not Attach Compendium, Do Not Delete/merge, [id number] 10/21/2023 15:14:06 10/21/19 24 10/21/2023 urina lysis , dipst ick Nitrite negati ve Not Available In-Office Order Internal Use Only DO Not Attach Compendium DO Not Attach Compendium, Do Not Delete/merge, [id number] 10/21/2023 15:14:06 10/21/19 24 10/21/2023 urina lysis , dipst ick Urobilinogen .2 Not Available In-Of fice Order Internal Use Only DO Not Attach Compendium DO Not Attach Compendium, Do Not Delete/merge, [facility] 10/21/2023 15:14:06 10/21/19 24 10/21/2023 urina lysis , dipst ick Protein Negati ve Not Available In-Office Order Internal Use Only DO Not Attach Compendium DO Not Attach Compendium, Do Not Delete/merge, [facility] 10/21/2023 15:14:10/21/19 24 10/21/2023 urina lysis , dipst ick pH 6.5 Not Available In-Office Order Internal Use Only DO Not Attach Compendium DO Not Attach Compendium, Do Not Delete/merge, [facility] 10/21/2023 15:14:06 10/21/19 24 10/21/2023 urina lysis , dipst ick Blood Negati ve Not Available In-Office Order Internal Use Only DO Not Attach Compendium DO Not Attach Compendium, Do Not Delete/merge, [facility] 10/21/2023 15:14:06 10/21/19 24 10/21/2023 urina lysis , dipst ick Specific [place] 1.025 Not Available In-Off ice Order Internal Use Only DO Not Attach Compendium DO Not Attach Compendium, Do Not Delete/merge, [id number] 10/21/2023 15:14:06 10/21/19 24 10/21/2023 urina lysis , dipst ick Ketone Negati ve Not Available In-Office Order Internal Use Only DO Not Attach Compendium DO Not Attach Compendium, Do Not Delete/merge, [facility] 10/21/2023 15:14:06 10/21/19 24 10/21/2023 urina lysis , dipst ick Bilirubin Negati ve Not Available In-Office Order Internal Use Only DO Not Attach Compendium DO Not Attach Compendium, Do Not Delete/merge, 10/21/2023 15:14:06 10/21/1910/21/2023 urina lysis , dipst ick Glucose Negati ve Not Available In-Office Order Internal Use Only DO Not Attach Compendium DO Not Attach Compendium, Do Not Delete/merge, 10/21/2023 15:14:06 10/21/1910/21/2023 urina lysis , dipst ick Appearance Clear Not Available In-Offi ce Order Internal Use Only DO Not Attach Compendium DO Not Attach Compendium, Do Not Delete/merge, 10/21/2023 15:14:06 10/21/1910/21/2023 urina lysis , dipst ick Color Yellow Not Available In-Office Order Internal Use Only DO Not Attach Compendium DO Not Attach Compendium, Do Not Delete/merge, 10/21/2023 15:14:06 01/21/2001/21/2024 Bacte kenny ident ified in Urine by Cultu re result report SEE RESULT S BELOW resul t repor t Not Available Not Available 06/01/2024 03:55:31 01/22/2001/22/2024 LIPID PANEL cholesterol, total 158 mg/dL 100-19 9 Not Available [facility] [address] [place], [address], 01/23/2024 06:22:35 01/22/2001/22/2024 LIPID PANEL triglyceride s 129 mg/dL 0-149 Not Available [facility] Department [address] [place], [address], 01/23/2024 06:22:35 01/22/2001/22/2024 LIPID PANEL HDL cholesterol 42 mg/dL 40-999 Not Available [facility] Department [address] [place], [address], 01/23/2024 06:22:35 01/22/20 24 01/22/2024 LIPID PANEL VLDL cholesterol sonal 26 mg/dL 5-40 Not Available [facility] Department [address] [place] [address], [address], 01/23/2024 06:22:35 01/22/20 24 01/22/2024 LIPID PANEL LDL chol calc (nih) 109 mg/dL 0-99 above high normal Not Available [facility] Department [address] [place] [address], [address], 01/23/2024 06:22:35 01/22/20 24 01/22/2024 COMP. METAB OLIC PANEL (14) glucose 85 mg/dL 70-99 Not Available [facility] [address] [place] [address], [address], 01/23/2024 06:22:36 01/22/20 24 01/22/2024 COMP. METAB OLIC PANEL (14) BUN 13 mg/dL 6-24 Not Available [facility] Department [address] [place] [address], [address], 01/23/2024 06:22:36 01/22/20 24 01/22/2024 COMP. METAB OLIC PANEL (14) creatinine 0.95 mg/dL 0.76-1 .27 Not Available [facility] [address] [place] [address], [address], 01/23/2024 06:22:36 01/22/20 24 01/22/2024 COMP. METAB OLIC PANEL (14) eGFR 70 >=60 Units for eGFR value s are mL/mi n/1.7 3 The eGFR Calcu latio n has not been valid ated for patie nts under the age of 18. If test resul ts are displ ayed for a patie nt under the age of 18, disre miguel that value . Not Available [facility] Department [address] [place] [address], [address], 01/23/2024 06:22:36 01/22/20 24 01/22/2024 COMP. METAB OLIC PANEL (14) BUN/creatini ne ratio 13 9-23 Not Available [facility] Department [address] [place], [address], 01/23/2024 06:22:36 01/22/20 24 01/22/2024 COMP. METAB OLIC PANEL (14) sodium 137 mmol/ L 134-14 4 Not Available [facility] [address] [place], [address], 01/23/2024 06:22:36 01/22/20 24 01/22/2024 COMP. METAB OLIC PANEL (14) potassium 4.9 mmol/ L 3.5-5. 2 Not Available [facility] [address] [place] [address], [address], 01/23/2024 06:22:36 01/22/20 24 01/22/2024 COMP. METAB OLIC PANEL (14) chloride 101 mmol/ L 96-106 Not Available [facility] [address] [place], [address], 01/23/2024 06:22:36 01/22/20 24 01/22/2024 COMP. METAB OLIC PANEL (14) carbon dioxide, total 24 mmol/ L 20-29 Not Available [facility] [address] [place], [address], 01/23/2024 06:22:36 01/22/20 24 01/22/2024 COMP. METAB OLIC PANEL (14) calcium 9.3 mg/dL 8.7-10 .2 Not Available [facility] [address] [place], [address], 01/23/2024 06:22:36 01/22/20 24 01/22/2024 COMP. METAB OLIC PANEL (14) protein, total 6.8 g/dL 6.0-8. 5 Not Available [facility] [address] [place], [address], 01/23/2024 06:22:36 01/22/20 24 01/22/2024 COMP. METAB OLIC PANEL (14) albumin 4.3 g/dL 3.8-4. 9 Not Available [facility] Department [address] [place] [address], [address], 01/23/2024 06:22:36 01/22/20 24 01/22/2024 COMP. METAB OLIC PANEL (14) globulin, total 2.5 g/dL 1.5-4. 5 Not Available [facility] [address] [place] [address], [address], 01/23/2024 06:22:36 01/22/20 24 01/22/2024 COMP. METAB OLIC PANEL (14) A/G ratio 1.7 1.2-2. 2 Not Available [facility] [address] [place] [address], [address], 01/23/2024 06:22:36 01/22/20 24 01/22/2024 COMP. METAB OLIC PANEL (14) bilirubin, total 0.3 mg/dL 0.0-1. 2 Not Available [facility] [address] [place] [address], [address], 01/23/2024 06:22:36 01/22/20 24 01/22/2024 COMP. METAB OLIC PANEL (14) alkaline phosphatase 73 IU/L 44-121 Not Available [facility] Department [address] [place] [address], [address], 01/23/2024 06:22:36 01/22/20 24 01/22/2024 COMP. METAB OLIC PANEL (14) AST (SGOT) 18 IU/L 0-40 Not Available [facility] Department [address] [place], [address], 01/23/2024 06:22:36 01/22/20 24 01/22/2024 COMP. METAB OLIC PANEL (14) ALT (SGPT) 13 IU/L 0-32 Not Available [facility] Department [address] [place], [address], 01/23/2024 06:22:36 01/22/2001/22/2024 CBC, PLATE LET, NO DIFFE RENTI AL WBC 10.9 x10e3 /uL 3.4-10 .8 above high normal Not Available [facility] [address] [place], [address], 01/23/2024 06:22:37 01/22/20 24 01/22/2024 CBC, PLATE LET, NO DIFFE RENTI AL RBC 4.45 x10e6 /uL 3.77-5 .28 Not Available [facility] [address] [place], [address], 01/23/2024 06:22:37 01/22/20 24 01/22/2024 CBC, PLATE LET, NO DIFFE RENTI AL hemoglobin 14.9 g/dL 11.1-1 5.9 Not Available [facility] [address] [place], [address], 01/23/2024 06:22:37 01/22/20 24 01/22/2024 CBC, PLATE LET, NO DIFFE RENTI AL hematocrit 44.8 % 34.0-4 6.6 Not Available [facility] [address] [place], [address], 01/23/2024 06:22:37 01/22/20 24 01/22/2024 CBC, PLATE LET, NO DIFFE RENTI AL MCV 101 fL 79-97 above high normal Not Available [facility] [address] [place], [address], 01/23/2024 06:22:37 01/22/20 24 01/22/2024 CBC, PLATE LET, NO DIFFE RENTI AL MCH 33.5 pg 26.6-3 3.0 above high normal Not Available [facility] [address] [place], [address], 01/23/2024 06:22:37 01/22/20 24 01/22/2024 CBC, PLATE LET, NO DIFFE RENTI AL MCHC 33.3 g/dL 31.5-3 5.7 Not Available [facility] [address] [place], [address], 01/23/2024 06:22:37 01/22/20 24 01/22/2024 CBC, PLATE LET, NO DIFFE RENTI AL RDW 12.5 % 11.5-1 4.5 Not Available [facility] [address] [place], [address], 01/23/2024 06:22:37 01/22/20 24 01/22/2024 CBC, PLATE LET, NO DIFFE RENTI AL platelets 240 x10e3 /uL 150-45 0 Mean Plate let Volum e 11.0 fL 8.9-1 2.7 N Not Available [facility] [address] [place], [address], 01/23/2024 06:22:37 01/22/20 24 01/22/2024 CBC, PLATE LET, NO DIFFE RENTI AL NRBC 0 % 0-0 Not Available [facility] [address] [place], [address], 01/23/2024 06:22:37 02/26/20 24 02/26/2024 Bacte kenny ident ified in Urine by Cultu re result report SEE RESULT S BELOW abnormal resul t repor t Not Available Not Available 06/01/2024 03:55:31 02/05/20 24 02/05/2024 MRI, lumba r spine , w/o contr ast No observ ation record ed. [facility] [address] [place], [address], 03/03/2024 14:07:27 03/19/19 25 03/19/2024 LDCT, chest , for lung cance r scree german No observ ation record ed. [facility] [address] [place], [address], 03/28/2024 02:26:40 03/23/1903/19/2024 MAMMO , scree german, digit al, bilat eral No observ ation record ed. [facility] [address] [facility], [place], [address], 03/28/2024 02:26:41 Result Notes None recorded. Problems Name Problem SNOMED Code Status Onset Date Resolution Date Notes Provider Name and Address Organization Details Recorded Time Uterine leiomyom a 47862929 Active 2020 Diamante Shetty MA [facility], [facility] 15:06:53 History of endometr iosis 46579398142 717027 Completed 202007/08/2020 STEPHANIA PLAZA Attn: Reed maldonado,[address] [place], [place], [address] [place] [address] 2, [facility] 1 06:21:24 [facility] hyperten victor manuel 38088426 Active 2020 STEPHANIA PLAZA Attn: Reed maldonado,[address] [place], [address] [place] [address] 2, [facility] 1 16:05:23 Hypercho lesterol emia 40190395 Active 2020 STEPHANIA PLAZA Attn: Reed maldonado,[address] [place], [address] [place] [address] 2, [facility] 1 16:05:29 Impacted cerumen of bilatera l ears 72924095299 66825 Completed 202007/08/2020 STEPHANIA PLAZA Attn: Reed maldonado,[address] [place], [address] [place] [address] 2, [facility] 1 06:21:28 Costal chondrit is 31585012 Completed 202007/07/2020 STEPHANIA PLAZA Attn: Reed maldonado,[address] [facility], [place], [address], [place] [facility] 1 16:06:22 History of SARS-CoV -2 44238136444 2830273 Active 2020 Sabino Bhandari MD Attn: Reed maldonado,[address] [facility], [place], [address], [place] [facility] 1 15:55:15 Rhinitis 19469112 Active 2020 Sabino Bhandari MD Attn: Reed maldonado,[address] [facility], [place], [address], [place] [facility] 1 15:58:28 Muscle pain 06443740 Active 2020 Sabino Bhandari MD Attn: Reed maldonado,[address] [facility], [place], [address] [place] [address], [place] [facility] 1 15:59:01 Gastro-e sophagea l reflux disease with ulcerati on 005376183 Active 2022 Sabino Bhandari MD Attn: Reed maldonado,[address] [facility], [place], [place], [address] [place] [address], [place] [facility] 3 11:31:36 Tobacco dependen ce syndrome 11782577 Active 2022 Sabino Bhandari MD Attn: Reed maldonado,[address] [facility], [place], [address] [place] [address], [place] [facility] 3 11:35:01 Allergic reaction to substanc e 229837387 Active 2022 Sabino Bhandari MD Attn: Reed maldonado,[address] [facility], [place], [address], [place] [facility] 3 11:36:18 Hypergly cemia 72431945 Active 2022 Sabino Bhandari MD Attn: Reed maldonado,[address] [facility], [place], [place], [address] [place] [address], [place] [facility] 3 14:51:54 Mood disorder 24648809 Active 2022 Sabino Bhandari MD Attn: Accountin g,[address] [facility], [place], [address], [place] [facility] 3 14:51:19 Headache 13732536 Active 2022 Sabino Bhandari MD Attn: Accountin g,[address] [facility], [place], [address], [place] [facility] 3 17:18:41 Dysuria 02937919 Active 2022 Sabino Bhandari MD Attn: Accountin g,[address] [facility], [place], [address], [place] [facility] 3 17:20:52 Multiple gastric ulcers 629057667 Active 2022 Sabino Bhandari MD Attn: Accountin g,[address] [facility], [place], [address], [place] [facility] 3 13:08:27 Nodule of skin of upper limb 561784624 Active 2022 left elbow Sabino Bhandari MD Attn: Accountsamuel g,[address] [facility], [place], [address], [place] [facility] 3 13:13:54 Screenin g for malignan t neoplasm of breast Active 2022 Sabino Bhandari MD Attn: Accountin g,[address] [facility], [place], [address], [place] [facility] 3 13:27:27 Medicati on monitori ng Active 2022 Sabino Bhandari MD Attn: Reed g,[address] [facility], [place], [address], [place] [facility] 3 07:15:22 Active immuniza tion Active 2022 Sabino Bhandari MD Attn: Accountin g,[address] 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 Sabino Bhandari MD Attn: Reed maldonado,[address] [place], [address], [place] [facility] 4 16:13:11 Pain of multiple joints 57326223 Active 2023 Sabino Bhandari MD Attn: Reed maldonado,[address] [place], [address], [place] [facility] 4 15:45:24 Leukocyt osis 765158510 Active 2023 Sabino Bhandari MD Attn: Reed maldonado,[address] [place], [address], [place] [facility] 4 15:11:02 Lower urinary tract symptoms 899190469 Active 2023 Sabino Bhandari MD Attn: Reed maldonado,[address] [place], [address], [place] [facility] 4 15:13:47 Chronic neck pain 45911585566 07 Active 2023 Sabnio Bhandari MD Attn: Reed maldonado,[address] [place], [address], [place] [facility] 4 15:22:03 Chronic back pain 562810001 Active 2023 Sabino Bhandari MD Attn: Reed maldonado,[address] [facility], [place], [address], [place] [facility] 4 15:22:35 Cough 14118167 Active 2024 Sabino Bhandari MD Attn: Reed maldonado,[address] [facility], [place], [address], [place] [facility] 5 17:50:22 Problem Notes Documentation Provider Name and Address Organization Details Recorded Time Pearl Glue Operator Consult Note : This document (1 of 1) was received from [email or web address] on 06/12/2024 through Direct Message along with the following message body content: Patient Name: ALEXANDRA HICKS. Patient : 1965. Patient . [facility], [place] - [facility] 06/18/2024 12:27:09 Procedures Surgical History Date Name Laterality Status Provider Name and Address Organization Details Recorded Time 12/07/19 21 Date of Last Mammogram completed Anne-Marie Travis [place] - [facility] 05/25/2021 10:35:41 12/03/19 21 Date of Last Pap Smear completed Julianne Willingham MA [facility] 12/02/2020 14:51:42 03/11/19 17 procedure on ovary completed Diamante Shetty [place] - [place] 07/07/2020 15:13:43 03/11/19 17 cholecystectomy completed Diamante Shetty MA [facility] 07/07/2020 15:13:53 03/11/19 17 repair of stress incontinence by suprapubic sling completed Diamante Shetty MA [facility] 07/07/2020 15:14:25 03/11/18 78 hernia repair completed Diamante Shetty MA [facility] 07/07/2020 15:14:37 left oophorectomy completed STEPHANIA LÓPEZ Attn: Accounting, [address] [facility], [place], [address], [facility] - [facility] 07/07/2020 16:39:56 Imaging Results None recorded. Procedure Notes None recorded. Medical Equipment None Reported. Allergies Allergen ID Allergen Name Allergen Category Reaction Reaction Severity Criticality Documentation Date Start Date Code Code System Note Provider Name and Address Organization Details Recorded Time 903930 Demerol medicatio n hives moderate Not available 07/07/2020 56965 1 RxNorm DAVID Foley, [place] - [facility] 15:03:12 Medications Name Sig Start Date Stop Date Status Note LastModified by Organization Details LastModified Time multivitami n tablet Take 1 tablet every day by oral route. 02/14 completed Not Available Not Available Not Available losartan 50 mg tablet TAKE 1 TABLET BY MOUTH EVERY DAY 11/05 completed Not Available Not Available Not Available cyclobenzap rine 10 mg tablet 06/13 completed Not Available Not Available Not Available silver sulfadiazin e 1 % topical cream APPOLY A 1.5 MM THICK LAYER TO ENTIRE BURN AREA TWICE DAILY active Not Available Not Available No t Available prednisone 10 mg tablet 06/13 completed Not Available Not Available Not Available zinc gluconate 100 mg tablet Take 1 tablet every day by oral route. 06/13 completed Not Available Not Available Not Available cetirizine 10 mg tablet TAKE 1 TABLET BY MOUTH DAILY active Not Available Not Available No t Available oxybutynin chloride ER 10 mg tablet,exte nded release 24 hr TAKE 1 TABLET BY MOUTH EVERY DAY 06/01 completed Not Available Not Available Not Available azithromyci n 250 mg tablet TAKE 2 TABLETS (500 MG) BY ORAL ROUTE ONCE DAILY FOR 1 DAY THEN 1 TABLET (250 MG) BY ORAL ROUTE ONCE DAILY FOR 4 DAYS 11/05 completed Not Available Not Available Not Available ibuprofen 800 mg tablet TAKE 1 TABLET BY MOUTH THREE TIMES DAILY FOR 7 DAYS 08/06 completed Not Available Not Available Not Available fluconazole 150 mg tablet TAKE 1 TABLET BY MOUTH EVERY 72 HOURS 06/13 completed Not Available Not Available Not Available benzonatate 200 mg capsule TAKE 1 CAPSULE BY MOUTH THREE TIMES DAILY active Not Available Not Available No t Available valacyclovi r 1 gram tablet TAKE 1 TABLET BY MOUTH EVERY DAY 2024 active Not Available Not Available Not Avai lable hydrocodone 5 mg-acetamin ophen 325 mg tablet TAKE 1 TABLET BY MOUTH TWICE DAILY NEEDED active Not Available Not Available No t Available fluconazole 200 mg tablet TAKE 1 TABLET BY MOUTH EVERY 72 HOURS 01/19 completed Not Available Not Available Not Available Pyridium 200 mg tablet TAKE 1 TABLET BY MOUTH EVERY 12 HOURS FOR 5 DAYS DIRECTED 09/30 completed Not Available Not Available Not Available Debrox 6.5 % ear drops INSTILL 5 DROPS IN AFFECTED EAR(S) TWICE DAILY 07/21 completed Not Available Not Available Not Available phentermine 15 mg capsule TAKE 1 CAPSULE BY MOUTH EVERY DAY active Not Available Not Available No t Available metronidazo le 500 mg tablet TAKE 1 TABLET BY MOUTH EVERY 12 HOURS 06/13 completed Not Available Not Available Not Available ciprofloxac in 250 mg tablet TAKE 1 TABLET BY MOUTH EVERY 12 HOURS FOR 7 DAYS 10/20 completed Not Available Not Available Not Available estradiol 0.05 mg/24 hr semiweekly transdermal patch APPLY 1 PATCH TOPICALLY TO THE SKIN 2 TIMES A WEEK active Not Available Not Available No t Available estradiol-n orethindron e acet 1 mg-0.5 mg tablet TAKE 1 TABLET BY MOUTH EVERY DAY 06/30 completed Not Available Not Available Not Available ciprofloxac in 500 mg tablet TAKE 1 TABLET BY MOUTH EVERY 12 HOURS FOR 7 DAYS 06/01 completed Not Available Not Available Not Available sulfamethox azole 800 mg-trimetho prim 160 mg tablet TAKE 1 TABLET BY MOUTH EVERY 12 HOURS 06/01 completed Not Available Not Available Not Available omeprazole 40 mg capsule,del ayed release TAKE 1 CAPSULE BY MOUTH EVERY DAY active Not Available Not Available No t Available tramadol 50 mg tablet TAKE 1 TABLET BY MOUTH EVERY DAY FOR 7 DAYS NEEDED FOR SEVERE PAIN 06/13 completed Not Available Not Available Not Available acetaminoph en 500 mg tablet Take 2 tablets 3 times a day by oral route. 06/13 completed Not Available Not Available Not Available oxycodone-a cetaminophe n 5 mg-325 mg tablet TAKE 1 TABLET BY MOUTH EVERY 6 HOURS FOR 5 DAYS 06/13 completed Not Available Not Available Not Available amoxicillin 875 mg tablet 06/13 completed Not Available Not Available Not Available alprazolam 0.25 mg tablet TAKE 1 TO 2 TABLETS BY MOUTH 30 MINUTES PRIOR TO INJECTION 06/13 completed Not Available Not Available Not Available amitriptyli ne 25 mg tablet Take 1 tablet every day by oral route at bedtime. 02/14 completed Not Available Not Available Not Available estradiol 1 mg tablet TAKE 1 TABLET BY MOUTH DAILY 06/01 completed Not Available Not Available Not Available hydrocodone 7.5 mg-acetamin ophen 325 mg tablet TAKE 1 TABLET BY MOUTH ONCE DAILY NEEDED FOR 30 DAYS 06/13 completed Not Available Not Available Not Available pantoprazol e 40 mg tablet,justa yed release 06/13 completed Not Available Not Available Not Available esomeprazol e magnesium 40 mg capsule,del ayed release TAKE 1 CAPSULE BY MOUTH EVERY DAY BEFORE A MEAL active Not Available Not Available No t Available progesteron e micronized 200 mg capsule TAKE 1 CAPSULE BY MOUTH EVERY DAY 06/13 completed Not Available Not Available Not Available diclofenac potassium 50 mg tablet TAKE 1 TABLET BY MOUTH THREE TIMES DAILY WITH FOOD OR MILK NEEDED FOR PAIN 06/13 completed Not Available Not Available Not Available gabapentin 300 mg capsule TAKE 1 CAPSULE BY MOUTH EVERY DAY 06/13 completed Not Available Not Available Not Available omeprazole 20 mg capsule,del ayed release TAKE 1 CAPSULE BY MOUTH EVERY DAY 02/14 completed Not Available Not Available Not Available estradiol 2 mg tablet 06/13 completed Not Available Not Available Not Available esterified estrogens-m ethyltestos terone 1.25 mg-2.5 mg tablet active Not Available Not Available Not Available bisacodyl 5 mg tablet,justa yed release TAKE ALL 4 TABLETS BY MOUTH 1 TIME AT 7 PM WITH A GLASS OF WATER 06/13 completed Not Available Not Available Not Available Baby Aspirin 81 mg chewable tablet Chew 1 tablet every day by oral route. 05/25 completed Not Available Not Available Not Available epinephrine 0.3 mg/0.3 mL injection, auto-inject or 10/20 completed Not Available Not Available Not Available levofloxaci n 500 mg tablet TAKE 1 TABLET BY MOUTH EVERY 24 HOURS 06/13 completed Not Available Not Available Not Available oxycodone-a cetaminophe n 7.5 mg-325 mg tablet TAKE 1 TABLET BY MOUTH EVERY 4 HOURS NEEDED FOR PAIN 06/13 completed Not Available Not Available Not Available methylpredn isolone 4 mg tablets in a dose pack FOLLOW PACKAGE DIRECTION S 06/13 completed Not Available Not Available Not Available albuterol sulfate HFA 90 mcg/actuati on aerosol inhaler INHALE 2 PUFFS BY MOUTH FOUR TIMES DAILY NEEDED active Not Available Not Available No t Available ondansetron 4 mg disintegrat ing tablet DISSOLVE 2 TABLETS ON THE TONGUE TWICE DAILY 06/13 completed Not Available Not Available Not Available fluticasone propionate 50 mcg/actuati on nasal spray,suspe nsion SHAKE LIQUID AND USE 1 SPRAY IN EACH NOSTRIL TWICE DAILY FOR 10 DAYS 06/13 completed Not Available Not Available Not Available diazepam 5 mg tablet TAKE 1 TABLET BY MOUTH EVERY DAY AT BEDTIME active Not Available Not Available No t Available progesteron e micronized 100 mg capsule 06/13 completed Not Available Not Available Not Available amoxicillin 875 mg-potassiu m clavulanate 125 mg tablet TAKE 1 TABLET BY MOUTH TWICE DAILY FOR 10 DAYS 06/13 completed Not Available Not Available Not Available rosuvastati n 5 mg tablet TAKE 1 TABLET BY MOUTH EVERY DAY active Not Available Not Available No t Available Prilosec OTC 20 mg tablet,justa yed release Take by oral route. 06/13 completed Not Available Not Available Not Available topiramate 50 mg tablet TAKE 1 TABLET BY MOUTH TWICE DAILY active Not Available Not Available No t Available nitrofurant oin monohydrate /macrocryst als 100 mg capsule TAKE 1 CAPSULE BY MOUTH EVERY 12 HOURS FOR 7 DAYS 10/20 completed Not Available Not Available Not Available aspirin 07/07 completed Not Available Not Available Not Available estrogens-m ethyltestos terone 09/30 completed Not Available Not Available Not Available simvastatin 07/07 completed Not Available Not Available Not Available Prilosec 07/07 completed Not Available Not Available Not Available rosuvastati n Unknown dosage 09/07 completed Not Available Not Available Not Available peg 3350-electr olytes 236 gram-22.74 gram-6.74 gram-5.86 gram solution 06/13 completed Not Available Not Available Not Available Calcium with Vitamin D 600 mg-10 mcg (400 unit) tablet Take 1 tablet twice a day by oral route. 02/14 completed Not Available Not Available Not Available cholecalcif westley (vitamin D3) 125 mcg (5,000 unit) tablet Take 1 tablet every day by oral route. 06/13 completed Not Available Not Available Not Available tranexamic acid 650 mg tablet 06/13 completed Not Available Not Available Not Available Bijuva 1 mg-100 mg capsule Take 1 capsule every day by oral route in the evening. 04/26 completed Not Available Not Available Not Available Chest Congestion Relief DM 10 mg-100 mg/5 mL oral syrup TAKE 10 ML BY MOUTH EVERY 4 HOURS 05/25 completed Not Available Not Available Not Available Vitals Date Recorded Body height Body mass index (BMI) Body weight Heart rate Oxygen saturation Oxygen saturation in Arterial blood by Pulse oximetry Respiratory rate Systolic blood pressure Diastolic blood pressure Provider Name and Address Organization Details Last Updated DateTime 5 160.02 cm 27.6 kg/m2 49933.4 1 g 74 /min 98 % 98 % 16 /min 130 mm[Hg] 80 mm[Hg] Thao Sanz [place] - [facility] 5 17:12:31 Date Recorded Body height Body mass index (BMI) Body weight Heart rate Oxygen saturation Oxygen saturation in Arterial blood by Pulse oximetry Systolic blood pressure Diastolic blood pressure Provider Name and Address Organization Details Last Updated DateTime 4 160.02 cm 27.1 kg/m2 67807.6 3 g 71 /min 98 % 98 % 130 mm[Hg] 82 mm[Hg] Chely Broderick [place] - [facility] 4 15:27:02 Date Recorded Body height Body mass index (BMI) Body weight Heart rate Oxygen saturation Oxygen saturation in Arterial blood by Pulse oximetry Systolic blood pressure Diastolic blood pressure Provider Name and Address Organization Details Last Updated DateTime 5 160.02 cm 27.3 kg/m2 58384.2 2 g 70 /min 97 % 97 % 118 mm[Hg] 72 mm[Hg] Brashay Michael, MA [facility] 5 17:20:00 Date Recorded Body height Body mass index (BMI) Body weight Oxygen saturation Oxygen saturation in Arterial blood by Pulse oximetry Heart rate Systolic blood pressure Diastolic blood pressure Provider Name and Address Organization Details Last Updated DateTime 4 160.02 cm 27.1 kg/m2 75400.6 3 g 98 % 98 % 67 /min 140 mm[Hg] 80 mm[Hg] Chely Broderick MA [facility] 4 14:42:01 Date Recorded Body height Body mass index (BMI) Body weight Heart rate Oxygen saturation Oxygen saturation in Arterial blood by Pulse oximetry Systolic blood pressure Diastolic blood pressure Provider Name and Address Organization Details Last Updated DateTime 4 160.02 cm 27.8 kg/m2 49021 g 62 /min 97 % 97 % 126 mm[Hg] 70 mm[Hg] Daiana Rodriguez MA [facility] 4 14:50:03 Social History Question Answer Notes LastModified by Organizat ion Details LastModified Time Tobacco Smoking Status Current Every Day Smoker 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 No Information n ot available 09/30/2020 What Is Your Level Of Caffeine Consumption? Moderate Information not available 01/17/2023 In The 14 Days Before Symptom Onset, Have You Had Close Contact With A Laboratory-confirm ed COVID-19 While That Case Was Ill? No Information n ot available 07/07/2020 In The 14 Days Before Symptom Onset, Have You Had Close Contact With A Person Who Is Under Investigation For COVID-19 While That Person Was Ill? No Information not available 07/07/2020 Have You Been To An Area Known To Be High Risk For COVID-19? No Information not available 07/07/2020 What Type Of Diet Are You Following? REGULAR Information n ot available 01/17/2023 What Was The Date Of Your Most Recent Tobacco Screening? 08/12/2024 Information not available 08/12/2024 What Is Your Relationship Status? Information not available 12/02/2020 Are You Sexually Active? Yes Information not available 09/30/2020 Do You Have Smoke And Carbon Monoxide Detectors In Your Home? Yes Information not available 12/02/2020 Are You Passively Exposed To Smoke? Yes Information no t available 12/02/2020 How Much Tobacco Do You Smoke? 2 PPW Information not available 07/07/2020 Has Tobacco Cessation Counseling Been Provided? Yes Information not available 07/07/2020 On What Date Was Tobacco Cessation Counseling Provided? 08/12/2024 Information not available 08/12/2024 How Many Years Have You Smoked Tobacco? 35 Information not available 07/07/2020 Sex: Female Functional Status Question Answer Note LastModified by Organizat ion Details LastModified Time Do you use any illicit or recreational drugs? Yes CBD oil Information not available 12/02/2020 Do you or have you ever used any other forms of tobacco or nicotine? No Information not available 07/21/2020 What is your level of alcohol consumption? None Information not available 07/07/2020 Are you currently employed? No Information not available 09/30/2020 Are you able to care for yourself? Yes Information n ot available 01/17/2023 Mental Status None recorded. Family History Relationship Description Onset Age of this Age Resolved Age Notes LastModified by Organization Details LastModified Time Mother Malignant tumor of cervix [email or web address] Not available 07/07 15:10:40 Mother Hypertensive disorder [email or web address] Not available 07/07 15:12:17 Sister Malignant tumor of cervix [email or web address] Not available 07/07 15:10:40 Maternal Grandmother Malignant tumor of breast [email or web address] Not available 07/07 15:10:51 Maternal Grandmother Malignant tumor of colon [email or web address] Not available 07/07 15:11:51 Maternal Aunt Malignant tumor of breast 79 [email or web address] Not available 07/07 15:11:34 Maternal Aunt Malignant tumor of colon [email or web address] Not available 07/07 15:11:44 Unspecified Relation Malignant tumor of colon [email or web address] Not available 07/07 15:11:58 Medical History Condition Response Anxiety Disorder Y Diabetes N Coronary Artery Disease N Muscle, Joint, or Bone Problems Y High Blood Pressure Y Atrial Fibrillation N Seizures/Epilepsy N Acid Reflux (GERD) Y Kidney or Bladder Problems N Stroke N Thyroid Problems N Asthma N Blood Clots N COPD N Depression Y Allergies Y Skin Problems Y Anemia N High Cholesterol Y Hepatitis N Liver Disease N Heart Attack ([place]) N Headaches Y Heart Failure N Gynecological History Statement/Question Response If Post Menopausal, Age at Menopause 50 Date of Last Mammogram 12/06/2020 Date of LMP 05/22/2021 Menses Monthly N STIs/STDs Y Date of Last Pap Smear 12/02/2020 Age at Menarche 16 Current Control Method Menopause Age at First Child 20 LMP Approximate Obstetrics History GPAL:G 3 P 2 0 1 2 Type Value Multiple Births 0 Full Term 2 Induced 1 Spontaneous 0 Premature 0 Living 2 Ectopics 0 Total 3 Immunizations Vaccine Type Date Status Note Provider Nam e and Address Organization Details Recorded Time COVID-19, mRNA, LNP-S, PF, 30 mcg/0.3 mL dose 1 completed Nohelia Albarado [place], [place] [facility] 02/14/2021 15:31:30 COVID-19, mRNA, LNP-S, PF, 30 mcg/0.3 mL dose 1 completed Nohelia Albarado [place], [place] [facility] 02/14/2021 15:31:44 COVID-19, mRNA, LNP-S, PF, 30 mcg/0.3 mL dose 1 completed Not Available [employer] 08/12/2024 17:03:28 Influenza, split virus, quadrivalent, preservative 1 completed Julianne Willingham [place], [place] [facility] 12/02/2020 15:44:27 Influenza, split virus, quadrivalent, PF 3 completed Chely Broderick [place], [place] [facility] 01/01/2023 10:34:22 Past Encounters Encounter ID Performer Location Encounter Start Date Encounter Closed Date Diagnosis/Indication Diagnosis SNOMED-CT Code Diagnosis ICD10 Code Diagnosis Note [id number] STEPHANIA ESCOBAR ([employer]) [address] [place] [address] 07/07/2020 13:58:28 07/11/2020 07:59:47 Adult health examination 508192884 Z00.00 Presents to establish IM care. Ordered routine blood work today. Patient states Pap, mammogram, and colonoscop y were completed in 12/2019 in [place] and were all normal, will obtain records. Acute urin julianne tract infection 897188222 N39.0 Urine dipstick with positive nitrites. Follw up urine culture. She has mild suprapubic TTP on examinatio n, but denies urinary symptoms. Will treat with empiricall y with Macrobid. Advised increased water intake. Costal chondritis 254431 04 M94.0 Complains of left-sided rib pain x 1 week. She denies any trauma or injury that may have precipitat ed the pain, stating she woke up with the pain. The pain worsens with deep inspiratio n and twisting movements. Associated with cough. No prior cardiopulm onary history. Prescribed ibuprofen 800 mg TID x 7 days. RTC if symptoms do not improve. Cough 26212809 R05 Complains of productive cough with clear sputum and intermitte nt wheezing x 1 week. The patient has a 16 pack year smoking history and states this cough is different than her baseline. On examinatio n, she is afebrile with mild expiratory wheezing and rhonchi that clears with coughing. Follow up CXR. Prescribed dextrometh orphan-gua ifenesin for symptomati c relief. RTC if symptoms do not improve. Impacted c erumen of bilateral ears [id number] 589760 H61.23 Patient has history of recurrent cerumen impaction and complains of muffled hearing. Bilateral cerumen impaction noted on examinatio n. Cerumen appears hard despite several irrigation attempts with minimal output. Advised patient to use Debrox otic drops x 4 days to soften cerumen and to RTC for cerumen removal. If unsuccessf ul, will refer to ENT. Essential hypertension 11818112 I10 History of HTN that is well controlled on losartan (unsure of dosage). BP 110/68 today. Continue losartan as previously prescribed . Advised her to bring medication list at next visit in order to document dosages of medication s. Hypercholesterolemia 136 34455 E78.00 Reports taking rosuvastat in (unsure of dosage) 5 days weekly. Continue rosuvastat in as previously prescribed , will adjust according to lipid panel. Advised her to bring medication list at next visit. Menopausal syndrome 1237 47991 N95.9 States hot flashes are well controlled with HRT. Continue medication as previously prescribed . Smoker 45097639 F17.200 16 pack year smoking history. Counseled patient on smoking cessation. Advised setting a quit date and removing all cigarettes , lighters, and matches from the home at that time. Consider starting patches/gu m. Try to identify triggers ahead of time so you can be better prepared to cope with them. Gastroesop hageal reflux disease 846447179 K21.9 Reports history of GERD that is well controlled with OTC Prilosec. Discussed diet modificati ons. [id number] STEPHANIA ESCOBAR ([employer]GER) [address] [place] [phone] 07/21/2020 07:55:41 07/22/2020 08:41:00 History of urinary tract infection 1610020526 107 Z87.440 Previous culture positive for e. coli susceptibl e to Macrobid. Pt completed 10 days of abx and states symptoms significan tly improved though back and suprapubic pain mildly linger. Follow up repeat culture to confirm resolution of UTI. Advised OTC Azo and increased water intake. 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 Nodules noted on CT 08/02/20 appear to be subpleural lesions 1-2mm of no concern. Recommende d CT chest in 1 year to reassess, even notes no follow up necessary per Fleischner guidelines . Reviewed informatio n with patient. Leukocytosis 264021883 D 72.829 WBC 14 -->16. CT abd/pelvis unremarkab le for acute process. Likely due to recent UTI, cough, cigarette smoking, and exceptiona l recent life stressors. Trend, check inflammato ry markers. Gastroesop hageal reflux disease 859305823 K21.9 Reports history of GERD and modest symptom relief with Prilosec. Discussed diet modificati ons. Reports last EGD and colonoscop y performed in 2019 with esdeniseogea l erosions; not included in medical records received. Notes feels sick to stomach all the time. Referred to GI for further eval and management . Smoker 06600106 F17.200 16 pack year smoking history. Counseled patient on smoking cessation. Advised setting a quit date and removing all cigarettes , lighters, and matches from the home at that time. Consider starting patches/gu m. Try to identify triggers ahead of time so you can be better prepared to cope with them. Overweight 536352482 E66 .3 Diet high in fruits and vegetables . Limit fat, sugar, and processed foods. Exercise at least 30 minutes 5x/week. [id number] STEPHANIA ESCOBAR ([employer]GER) [address] [place] [phone] 08/11/2020 08:08:29 08/16/2020 07:25:20 Uterine leiomyoma 12809896 D25.9 Pt states previous provider unable to remove fibroids. Last TVUS US May 2020. Medical records reviewed and do not see mention of fibroids. She did have thickened endometriu m (2.8cm) and EMB performed with benign findings. She had CT 07/2020 which notes heterogene ous enhancemen ts in the uterus which could represent ill defined fibroids. Recommende d repeat TVUS but pt refuses. Referral to interventi onal radiology for possible UFE. Menopausal syndrome 1237 16235 N95.9 On estrogen, testostero ne, and progestero ne. States her symptoms seem to be worsening and requests hormone levels. [id number] STEPHANIA ESCOBAR ([employer]GER) [address] [place] [phone] 09/30/2020 11:47:06 10/06/2020 20:21:08 Multiple nodules of lung [id number] R91.[address] Crain 08/05/20. Nodules noted on CT 08/02/20 appear to be subpleural lesions 1-2mm of no concern. Recommende d CT chest in 1 year to reassess, even notes no follow up necessary per Fleischner guidelines . Chest pain 03420286 R07. 9 Intermitte nt pleuritic chest pain, likely due to chronic cough. EKG and referral to cards to r/o cardiac causes. Smoker 01622612 F17.200 22 pack year smoking history. Counseled patient on smoking cessation. Advised setting a quit date and removing all cigarettes , lighters, and matches from the home at that time. Consider starting patches/gu m. Try to identify triggers ahead of time so you can be better prepared to cope with them. Menopausal syndrome 1237 61820 N95.9 Has been on esterified estrogens- methyltest osterone and progestero ne per provider in [place]. She would like to go back to pellets. Advised we do not do hormone pellets and she would have to seek elsewhere. She is agreeable to continue with oral HRT. Will switch to estrogen and progestero ne combinatio n pill. Counseled pt on risk factors and side effects, she verbalized understand ing. RTC in 3 months. Chronic cough 94722339 R 05 No improvemen t with cough medication s. CXR unremarkab le. She has not followed up with lung testing, advised to schedule PFTs. Smoking cessation strongly advised. [id number] STEPHANIA ESCOBAR (Adult Med) [address] [place] [address] 11/02/2020 14:46:16 11/09/2020 16:23:38 Chronic neck pain 3549014074 107 M54.2 Pt reports history of bulging discs. Will get imaging. Chronic neck pain likely exacerbati ng factor for chronic tension headaches. Referral to physical therapy. Chronic low back pain 27 4987830 M54.5 Pt reports history of bulging discs. Will get imaging. Referral to physical therapy. Smoker 04570816 F17.200 22 pack year smoking history. Counseled patient on smoking cessation. Advised setting a quit date and removing all cigarettes , lighters, and matches from the home at that time. Consider starting patches/gu m. Try to identify triggers ahead of time so you can be better prepared to cope with them. Pt to follow up LDCT of chest for cancer screening and PFTs as previously ordered. Headache 98580788 R51.9 H&P consistent w/ chronic tension headaches. Rest in quiet, dark room to relieve headaches. Start amitripyli ne as prescribed . Can continue OTC analgesics prn. Keep headache journal with associated symptoms. Maintain healthy diet. Exercise at least 5 times per week. Increase water intake. Find ways to manage stress. RTC in 3 months. [id number] STEPHANIA ESCOBAR [facility] ([employer]) [address] [place] [address] 11/23/2020 14:18:36 12/09/2020 06:09:06 Smoker 70407763 F17.200 22 pack year smoking history. LDCT of chest for cancer screening 11/18/20 Lung-RADS 2. Repeat in 1 year. Advised completing PFTs as previously ordered. Counseled on smoking cessation. Screening for malignant neoplasm of breast 213244395 Z12.31 Needs order for annual screening mammogram. Spinal stenosis 03849978 M48.00 MRI cervical and lumbar spine 11/18/20 with DDD, disc protrusion , neural forminal stenosis and central spinal stenosis. Has not followed up with physical therapy. Referral to neurosurge ry for further evaluation and management . Degenerati on of intervertebral disc 13292340 M51.9 Interverte bral disc prolapse 74907442 M51.9 [id number] STEPHANIA ESCOBAR HC ([employer]GER) [address] [place] [phone] 12/02/2020 14:35:47 12/09/2020 06:24:46 Gynecologic examination 63030491 Z01.419 -clinical breast & pelvic examinatio ns completed today, unremarkab le-cervica l cancer screening: last Pap 12/2019, negative. Repeated today.-scr eening mammogram scheduled for next week-Educa feliciano osteoporos is prevention including calcium rich diet, weight bearing exercise. Will start supplement .-RTC in 1yr Venereal d isease screening 373435319 Z11.3 -routine nuswab completed, treat as needed Administra tion of influenza vaccine 13838666 Z23 Menopausal syndrome 1237 90096 N95.9 Was recently switched to Activella and does not find relief of symptoms. Will trial bioidentic al hormones with Bijuva. Advised pt keep rooms cool and sleep with fan. Dress in layers so that clothing can be removed when hot flash occurs and wear natural fabrics. Avoid foods that raise body temperatur e such as alcohol, caffeine, hot liquids, spicy foods. Eat smaller meals throughout the day. Get at least 30 minutes of exercise on most days of the week. Smoking cessation. [id number] MD Maggie Sanchez (Adult Med) [address] [place] [phone] 02/14/2021 15:24:22 02/15/2021 09:22:39 History of SARS-CoV-2 0344045550 58097143 Z86.16 Muscle pain 06890895 M79 .10 Rhinitis 71945017 J00 [id number] STEPHANIA ESCOBAR ([employer]) [address] [place] [address] 05/25/2021 10:22:34 06/02/2021 11:26:11 Herpes simplex 10064989 B00.9 Patient has been taking valacyclov ir daily due to history of HSV. Last outbreak ~3 years ago. Seeking refill today. Postmenopa usal bleeding 51865185 N95.0 LMP was 7 years ago, but she has been bleeding since Monday 05/22. This is accompanie d by pelvic cramping pain. Advised endometria l biopsy. Pt to schedule procedure. Menopausal syndrome 1237 58325 N95.9 Has been taking Activella for the past month after switching from Bijuva due to lack of insurance coverage. Says that since she switched, she has started having 3-4 hot flashes per day along with night sweats and irritabili ty. Discontinu ing all hormones for now until further evaluation for bleeding completed. Discussed nonhormona l options but pt declines today. Essential hypertension 51034488 I10 History of HTN that is well controlled on losartan 50mg. Requests refill. Hyperlipidemia 55673976 E78.5 Patient seeking refill of statin. Smoker 89215646 F17.200 22 pack year smoking history. Pt requesting refill on inhaler which she last received from doctor in [place]. She reports night time SOB. Lungs CTA today. LDCT of chest for cancer screening 11/18/20 Lung-RADS 2. Repeat in 1 year. Advised completing PFTs as previously ordered. Counseled on smoking cessation. [id number] STEPHANIA ESCOBAR (Adult Med) [address] [place] [phone] 06/30/2021 09:50:42 07/05/2021 14:54:35 Postmenopausal bleeding 70498104 N95.0 Pt states bleeding from last month had stopped and she started taking her HRT again. Bleeding now noted again. She has not completed EMB. Advised pt discontinu e HRT and schedule EMB to rule out hyperplasi a/malignan cy. Pt voiced understand ing and is agreeable with plan. Wheezing 32846318 R06.2 PFTs 06/22/21 with mild air trapping which may represent underlying asthma, methacholi ne challenge recommende d. Pt has albuterol which she uses prn. Methacholi ne challenge ordered. Cervical radiculopathy 50845307 M54.12 Pt follows with pain management , has repeat MRI scheduled. Previously referred to neurosurge ry. Cervical s pondylosis without myelopathy 417241492 M47.812 As above. Spinal santi nosis in cervical region 46398668 M48.02 As above. [id number] MD Maggie Sanchez (Adult Med) [address] [place] [phone] 06/13/2022 10:44:19 06/14/2022 15:33:34 Essential hypertension 71279716 I10 Rhinitis 16428956 J00 Start antihistam ine Tobacco de pendence syndrome 84208509 F17.200 Allergic r eaction to substance 167598762 T78.40XA Suspect testostero ne injections Hyperlipidemia 78071861 E78.5 Gastro-eso phageal reflux disease with ulceration 351341505 K21.00 [id number] MD Maggie Sanchez (Adult Med) [address] [place] [address] 08/20/2022 16:44:35 08/21/2022 11:58:51 Overweight 417224435 E66.3 Essential hypertension 45395609 I10 Cont meds Hypercholesterolemia 136 56440 E78.00 Hyperglycemia 23328833 R 73.9 Tobacco de pendence syndrome 89376908 F17.200 Headache 03346941 R51.9 Dysuria 69357737 R30.0 Smoker 06915675 F17.624 [id number] Sabino [facility]handari MD [facility] ([facility] [address] [place] [address] 11/05/2022 11:44:11 11/06/2022 14:15:48 Gastro-esophageal reflux disease with ulceration 169722753 K21.00 Herpes simplex 55612700 B00.9 Multiple g astric ulcers 394201613 K25.9 Linear gastric ulcers EGD 07/2021. Continue PPI Nodule of skin of upper limb 535485420 R22.30 Tobacco de pendence syndrome 21042224 F17.200 Screening for malignant neoplasm of breast 232586629 Z12.39 Screening mammography 24 896016 Z12.31 [id number] Sabino Bhandari MD [place] [facility] (Adult Med) [address] [place] [phone] 12/31/2022 14:40:36 12/31/2022 15:56:59 Stomach cramps 22958374 R10.9 Mood disorder 14761969 F 39 Active immunization 3387 9002 Z23 Tobacco de pendence syndrome 50785437 F17.200 Low back pain 143885145 M54.50 Pain in pelvis 36967363 R10.2 [id number] David Benjamin MD [facility] [address] [place] [address] 01/17/2023 11:46:43 01/28/2023 14:23:14 Mass of elbow region 1354713885 46202 R22.32 no surgical interventi on at this time. patient likely has chronic induration /callous from leaning on elbow/long -time work-relat ed trauma. No definitive mass to excise, patient does not wish to have area excised in lieu of stronger clinical indication . return to clinic should symptoms change [id number] MD Maggie Sanchez (Adult Med) [address] [place] [phone] 03/21/2023 15:36:49 03/29/2023 16:26:58 Overweight 066603492 E66.3 Pain in th oracic spine 706282581 M54.6 Refuses tramadol Pain in right hand 35370 08511 43032 M79.302 [id number] MD Maggie Sanchez (Adult Med) [address] [place] [phone] 04/15/2023 14:39:03 04/25/2023 10:08:11 Overweight 594139424 E66.3 Pain in th oracic spine 900519705 M54.6 Refuses tramadol [id number] MD Maggie Sanchez (Adult Med) [address] [place] [phone] 07/22/2023 15:12:17 07/24/2023 14:40:16 Pain in thoracic spine 945930571 M54.6 Pain of mu ltiple joints 11253919 M25.50 Referral sent to different specialist [id number] MD Maggie Sanchez (Adult Med) [address] [place] [phone] 10/21/2023 14:13:07 11/01/2023 12:42:50 Essential hypertension 91157102 I10 Cont meds Gastro-eso phageal reflux disease with ulceration 522868670 K21.00 Hypercholesterolemia 136 13865 E78.00 Low back pain 459664127 M54.50 Pain of mu ltiple joints 40640257 M25.50 Referral sent to different specialist Tobacco de pendence syndrome 77776227 F17.200 Medication monitoring 39 7547761 Z51.81 Leukocytosis 772858695 D 72.829 F/U oncology Lower urin julianne tract symptoms 101665211 R39.9 [id number] MD Maggie Sanchez (Adult Med) [address] [place] [address]14[address] 01/20/2024 14:12:58 01/21/2024 13:18:30 Chronic neck pain 2743158234 107 M54.2 Essential hypertension 21174354 I10 Cont meds Tobacco de pendence syndrome 55371860 F17.200 Screening for malignant neoplasm of breast 551444586 Z12.39 Chronic back pain 567876 002 G89.29 [id number] MD Maggie Sanchez (Adult Med) [address] [place] [phone] 06/01/2024 17:00:40 06/04/2024 14:34:33 Chronic back pain 422926196 G89.29 Chronic neck pain 194325 4436 107 M54.2 Essential hypertension 30542624 I10 Cont meds Mood disorder 89768476 F 39 Pain of mu ltiple joints 80792303 M25.50 Referral sent to different specialist Cough 16972448 R05.9 Gastro-eso phageal reflux disease with ulceration 475945347 K21.00 [id number] Sabino Bhandari MD [place] [facility] (Adult Med) [address] [place] [phone] 0 08/12/2024 17:02:16 08/14/2024 08:44:52 Overweight 196379122 E66.3 Pain of mu ltiple joints 57069779 M25.50 Referral sent to different specialist Essential hypertension 44333880 I10 Cont meds Hypercholesterolemia 136 63639 E78.00 Tobacco de pendence syndrome 17092106 F17.200 Health Concerns Section Related Observation LastModified by Organization Detai ls LastModified Time None Recorded Concern Status LastModified by Organization Details LastModified Time None Recorded Advance Directives Directive N: Payers Insurance Date Sequence Insurance Name Policy Number Policy Mayer Covered Member ID Mayer Member ID Guarantor Name 06/13/2022 2 [place] Alexandra Hicks [id number] Alexandra Hicks 05/09/2023 2 [place] Alexandra Hicks [id number] Alexandra Hicks 05/09/2023 1 [place] [id number] Davin Hicks [id number] Alexandra Hicks 06/14/2022 2 [place] [facility] Alexandra Hicks [id number] Alexandra Hicks 06/13/2022 2 [place] Alexandra Alicias [id number] Alexandra [place] 11/29/2023 2 [facility] ON OR AFTER 09/08/20 (MEDICAID REPLACEMENT - HMO) [id number] Alexandra Alicias [id number] Alexandra [place] 08/14/2023 2 [place] WHEN MEDICARE OR MEDICARE REPLACEMENT PRIMARY) Alexandra Alicias [id number] Alexandra [place] 08/09/2024 1 [facility] ON OR AFTER 03/11/2020 - DUAL ELIGIBLE (MEDICARE REPLACEMENT/ADVANT AGE - HMO) [id number] Alexandra Alicias [id number] Alexandra [place] 06/25/2022 1 UNSPECIFIED PAULINE T PAYOR Alexandra Alicias 11/14/2023 [place] - [facility] Alexandra Alicias [id number] Alexandra [place] 03/21/2023 2 [employer] [place] (MEDICARE REPLACEMENT/ADVANT AGE) Alexandra Alicias [id number] Alexandra [place] 08/20/2022 2 [place] [place] (MEDICARE REPLACEMENT/ADVANT AGE) Alexandra Kurt [id number] Alexandra Alicias Notes Date Note Type Note Provider Name and Address Organization Details Recorded Time 07/22/2023 text/html Now has pain in right knee in the past week. Has been unable to see previous cardiovascular disease specialist. Sabino Bhandari MD Attn: [address] [place], [address], [place] 07/22/2023 15:50:07 10/21/2023 text/html Needs to find a NS to address her neck complaints. Has had a UTI symptoms for the past three weeks. Had colonoscopy 07/19/2021. No polyps seen. Surveillance colonoscopy recommended in 5 yrs(2026) Sabino Bhandari MD Attn: [address] [place], [address], [place] 10/21/2023 15:23:44 01/20/2024 text/html Here to get routine labs done.NS is requesting MRI of neck and back before she is seen. She has had surgery of the neck about two years ago and now has recurrence of the neck pain. Her lower back pain is worse and she has been seeing a chiropracter for at least four years. Sabino Bhandari MD Attn: [address] [facility], [place], [address], [facility] [place] 01/20/2024 15:35:34 06/01/2024 text/html Here for f/u. Patterson s seen NS who concluded no surgical intervention indicated at present. Was referred to PM. Will be scheduled for epidural injections pending insurance coverage. Pt has seen chiropracter only once a month. She has needed to return to work. She has epigastric discomfort on PPI Sabino Bhandari MD Attn: [address] [facility], [place], [address], [facility] 06/01/2024 17:55:28 08/12/2024 text/html Here for routine f/u.. Wants referral to PM. Has been unable to schedule all MRI. Sabino Bhandari MD Attn: [address] [facility], [place], [address], [facility] 08/12/2024 17:55:25 OBGyn Episode Ob Episode Information Episode Created Date Number of Fetuses Patient Bloodtype Patient rh Status Prepregnancy Weight lbs Domestic Partner Domestic Partner Phone Father Name Supervisor [employer] [facility] Status 07/08/19 21 1 CLOSED Fetus Data First Name Last Name Admitted to NICU Weight (g) Sex Living Outcome Pediatric Complications Fetus ID Race Codes Race Delivery Type F Full Term [id number] Nicolas Calculation Initial Nicolas Date Initial Exam Date Initial Exam Provider Initial Ultrasound Date Last Menstrual Period Date Ultra Sound Weeks Gestation 0 Eighteen To Twenty Week Nicolas Update Ultra Sound Date Fundal Height At Umbil Quickening Date Ultra Sound Latest Weeks Gestation Final Nicolas Confirmed By Final Nicolas Confirmed Date Final Nicolas Date Ultra Sound Latest Days Gestation 0 0 Menstrual History Last Menstrual Date Menses Monthly On Bcp Conception Prior Menses Frequency Hcg Plus Date Menarche Onset Age Delivery Information Delivery Date Delivery Type Labor Anesthesia Weeks Gestation Incision Type Labor Labor Length Hrs Delivered By Post Complications Tubal Sterilization Discharge Date Comments 7 Discharge Information Feeding Method Contraceptive Method Maternal HG B and HCT Levels Ob Episode Information Episode Created Date Number of Fetuses Patient Bloodtype Patient rh Status Prepregnancy Weight lbs Domestic Partner Domestic Partner Phone Father Name Supervisor [employer] [facility] Status 07/08/19 21 1 CLOSED Fetus Data First Name Last Name Admitted to NICU Weight (g) Sex Living Outcome Pediatric Complications Fetus ID Race Codes Race Delivery Type M Full Term [id number] Nicolas Calculation Initial Nicolas Date Initial Exam Date Initial Exam Provider Initial Ultrasound Date Last Menstrual Period Date Ultra Sound Weeks Gestation 0 Eighteen To Twenty Week Nicolas Update Ultra Sound Date Fundal Height At Umbil Quickening Date Ultra Sound Latest Weeks Gestation Final Nicolas Confirmed By Final Nicolas Confirmed Date Final Nicolas Date Ultra Sound Latest Days Gestation 0 0 Menstrual History Last Menstrual Date Menses Monthly On Bcp Conception Prior Menses Frequency Hcg Plus Date Menarche Onset Age Delivery Information Delivery Date Delivery Type Labor Anesthesia Weeks Gestation Incision Type Labor Labor Length Hrs Delivered By Post Complications Tubal Sterilization Discharge Date Comments 8 Discharge Information Feeding Method Contraceptive Method Maternal HG B and HCT Levels
--- OUTSIDE RECORDS SUMMARY | 2024-09-09 15:40 | XMS_ITS | Patient Health Record ---
Author Organization [facility] Address [address] [place] [address] [place] [address] Care Team Providers Care Reservation Clerk Name Role Phone VENITA BOONE, CATHRYN Primary Care Provider Dede LAI DC, JASON Unavailable Unavailable ALLERGIES Allergen (clinical drug ingredient) Drug/Non Drug Allergy documented on EMR Reaction Allergy Type Onset Date Status meperidine Meperidine hives Drug Allergy Activ e REASON FOR REFERRAL No Information MEDICATIONS Medication SIG (Take, Route, Frequency, Duration) Notes Start Date End Date Status Gabapentin 300 MG 1 capsule Orally Onc e a day for 30 day(s) 07/18/2021 Active Medrol 4 MG as directed Orally Active Xanax 0.25 MG 1-2 tablets Orally 3 0 minutes prior to injection 05/18/2021 Active HYDROcodone-Acetaminophen 7.5-325 MG 1 tablet as needed Orally 30 for 30 days 10/06/2021 Active Losartan Potassium 50 MG 1 tablet Orally Once a day for 30 day(s) Active Rosuvastatin Calcium 5 MG 1 tablet Orall y Once a day Active Acyclovir 200 MG 1 capsule Orally Thr ee times a day for 10 day(s) Active SOCIAL HISTORY Tobacco Use: Social History Observation Description Date Details (start date - stop date) Current Smoker NA - NA Sex Assigned At : Social History Observation Description Sex Assigned At Unknown Tobacco Use/Smoking Question Answer Notes Are you a current every day smoker Section Notes: The patient is disabled. She is with two children. She smokes less than 1/2 pack of cigarettes daily for the last 40 years. 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 She denies alcohol abuse. The patient is disabled. She is with two children. She smokes less than 1/2 pack of cigarettes daily for the last 40 years. 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 She denies alcohol abuse. The patient is disabled. She is with two children. She smokes less than 1/2 pack of cigarettes daily for the last 40 years. 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 She denies alcohol abuse. The patient is disabled. She is with two children. She smokes less than 1/2 pack of cigarettes daily for the last 40 years. 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 She denies alcohol abuse. The patient is disabled. She is with two children. She smokes less than 1/2 pack of cigarettes daily for the last 40 years. 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 She denies alcohol abuse. The patient is disabled. She is with two children. She smokes less than 1/2 pack of cigarettes daily for the last 40 years. 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 She denies alcohol abuse. The patient is disabled. She is with two children. She smokes less than 1/2 pack of cigarettes daily for the last 40 years. 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 She denies alcohol abuse. The patient is disabled. She is with two children. She smokes less than 1/2 pack of cigarettes daily for the last 40 years. 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 She denies alcohol abuse. The patient is disabled. She is with two children. She smokes less than 1/2 pack of cigarettes daily for the last 40 years. 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 She denies alcohol abuse. PROBLEMS Problem Type ICD Code Onset Dates Problem Status W/U Status Risk SNOMED Code Notes Problem Fear of injections and transfusions (F40.231) Active confirmed Fear of medical treatment (238592925) Problem Spondylosis without myelopathy or radiculopathy, cervical region (M47.812) Active confirmed Cervical spondylosis without myelopathy (205063257) Problem Spondylosis without myelopathy or radiculopathy, lumbar region (M47.816) Active confirmed Lumbosacral spondylosis without myelopathy (35521274) Problem Spondylosis without myelopathy or radiculopathy, lumbosacral region (M47.817) Active confirmed Lumbosacral spondylosis without myelopathy (disorder) (36608987) Problem Spinal stenosis, cervical region (M48.02) Active confirmed Spinal stenosis in cervical region (67725166) Problem Intervertebral disc disorders with radiculopathy, lumbar region (M51.16) Active confirmed Radiculopathy d ue to lumbar intervertebral disc disorder (250556624328980) Problem Radiculopathy, cervical region (M54.12) Active confirmed Cervical radiculopathy (04937015) Problem Radiculopathy, cervicothoracic region (M54.13) Active confirmed Cervical radiculopathy (37692995) Problem Radiculopathy, lumbar region (M54.16) Active confirmed Lumbar radiculopathy (948501235) Problem Postlaminectomy syndrome, not elsewhere classified (M96.1) Active confirmed Post-lami nectomy syndrome (27704357) Problem Intervertebral disc stenosis of neural canal of cervical region (M99.51) Active confirmed Spinal stenosis in cervical region (65356851) Problem 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 (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) use of opiate analgesic (Z79.891) Active confirmed High risk drug monitoring status (541457717) Problem Cervical disc disorder at C6-C7 level with radiculopathy (M50.123) Active confirmed Cervical disc disorder with radiculopathy (069342215) PLAN OF TREATMENT Pending Test Test Name Order Date MRI : Cervical Spine with and without Co ntrast (73969) 06/27/2021 [facility] Results 10/06/2021 Insurance Providers Payer Name Payer Address Payer Phone Subscriber Number Group Number Insured Name Patient Relationship to Insured Coverage Start Date Coverage End Date [facility] [address] [place] [phone] [id number] ANY ALMONTE Self - patient is the insured Medicare [place] [address] [address] [place] [address] [id number] ANY ALMONTE Self - patient is the insured MEDICAL (GENERAL) HISTORY Medical History History ICD Code Hypertension Acid reflux Surgical History Surgery Date(Month/Year) Cervical surgery 2017 ACDF 07/2021 Dr. Jackson 07/2021
--- OUTSIDE RECORDS SUMMARY | 2024-09-09 15:40 | XMS_ITS | Continuity of Care Document ---
Author Organization [facility] Address [address] [place] [address] Phone Care Team Providers Care Application Support Analyst Name Role Phone Elisha BOONE, Robi Unavailable Unavailable Medications Medication Instructions Dosage Effective Dates (start - stop) Status Comments EpiPen 0.3 mg/0.3 mL injection, auto-injector inject 0.3 milliliter by intramuscular route once as needed for anaphylaxis 0.3 MG - Active Flonase Allergy Relief 50 mcg/actuation nasal spray,suspension spray 2 spray by intranasal route every day in each nostril 100-100 MCG - Active Zyrtec 10 mg tablet take 1 tablet by ora l route 2 times every day 10 MG - Active pantoprazole 40 mg tablet,delayed release Take 1 tablet (40 mg total) by mouth daily - Active albuterol sulfate HFA 90 mcg/actuation aerosol inhaler INHALE 2 PUFFS BY MOUTH EVERY 4 HOURS NEEDED FOR SHORTNESS OF BREATH - Active rosuvastatin 5 mg tablet Take 1 tablet (5 mg total) by mouth daily - Active progesterone micronized 100 mg capsule Take 2 capsules (200 mg total) by mouth nightly - Active losartan 50 mg tablet Take 1 tablet (50 mg total) by mouth daily - Active Bijuva 1 mg-100 mg capsule - Active hydrocodone 5 mg-acetaminophen 325 mg tablet TAKE 1 TABLET BY MOUTH DAILY FOR 7 DAYS NEEDED FOR SEVERE PAIN - Active valacyclovir 1 gram tablet Take 1 tablet (1,000 mg total) by mouth daily - Active Procedures Procedure Date Less Than 24 Hour Notice Of Appointment Cancellation Est (Level 3) OFFICE/OUTPATIENT VISIT Jovita Est (Level 3) OFFICE/OUTPATIENT VISIT Kathleen Est (Level 4) OFFICE/OUTPATIENT VISIT Mike Est (Level 4) OFFICE/OUTPATIENT VISIT Mike Advance Directives Directive Yes / No Effective Date File Name No Information Encounters Encounter Description Practice Location Reason(s) For Visit Diagnoses Date Provider Providers Copied on Encounter [facility], [address] [place] [address], [id number], tel:[phone] [facility] No Information 3 Elisha Cheshil. [address] [place], [address], [place]. tel:[phone] Referring Provider: Sabino Linares, [address] [place] [address], [id number]. tel:[phone] [facility], [address] [place] [address], [id number], tel:[phone] [facility] No Information 3 Misc Prov. . Referring Provider: Sabino Linares, [address] [place] [address], [id number]. tel:[phone] Est (Level 3) OFFICE/OUTPA TIENT VISIT [facility], [address] [place] [address], [id number], tel:[phone] [facility] anaphylaxis (chief complaint) Body mass index (BMI) 25.0-25.9, adultAnaphylax is, subsequent encounter 3 Elisha Cheshil. [address] [place], [address], [place]. tel:[phone] Referring Provider: Sabino Linares, [address] [place] [address], [address]. tel:[phone] Est (Level 3) OFFICE/OUTPA TIENT VISIT [facility], [address] [place] [address], [id number], [place] tel:[phone] [facility] anaphylaxis (chief complaint) Body mass index (BMI) 25.0-25.9, adultAnaphylax is, subsequent encounter 3 Elisha Cheshil. [address], [place], [address], [place]. tel:[phone] Referring Provider: Sabino Linares, [address] [place] [address], [address]. tel:[phone] Est (Level 4) OFFICE/OUTPA TIENT VISIT [facility], [address] [place] [address], [id number], [place] tel:[phone] [facility] lab review (chief complaint) Body mass index (BMI) 26.0-26.9, adultAnaphylax is, subsequent encounterChron ic rhinitis 3 Elisha Cheshil. [address], [place], [address], [place]. tel:[phone] Referring Provider: Sabino Linares, [address] [place] [address], [address]. tel:[phone] Est (Level 4) OFFICE/OUTPA TIENT VISIT [facility], [address] [place] [address], [id number], [place] tel:[phone] [facility] reaction (chief complaint) Body mass index (BMI) 25.0-25.9, adultAnaphylax is, initial encounterChron ic rhinitis 3 Elisha Cheshil. [address], [place], [address], [place]. tel:[phone] Referring Provider: Sabino Linares, [address] [place] [address], [address]. tel:[phone] [facility], [address] [place] [address], [id number], tel:[phone] [facility] No Information 3 Elisha Rosenbaum. [address], [place], [address], [place]. tel:[phone] Family History Family Member Type Diagnosis Age At Onset Sister Problem Asthma Problem No family histor y of Family history of rheumatoid arthritis Niece Problem Asthma Problem No family history of Lupus e rythematosus Immunizations Vaccine Date Status Comments HPV, Unspecified administered Source: Oth er Provider Influenza, Unspecified administered Sourc e: Other Provider Influenza, Unspecified administered Sourc e: Other Provider Pfizer SARS-CoV-2 Vaccinatio n (12+ yrs) PURPLE administered Source: Other Provid er Pfizer SARS-CoV-2 Vaccinatio n (12+ yrs) PURPLE administered Source: Other Provid er Pfizer SARS-CoV-2 Vaccinatio n (12+ yrs) PURPLE administered Source: Other Provid er Influenza, Unspecified administered Sourc e: Other Provider Payers Payer name Insurance type Covered democrat ID Authorrhondaa linochely(s) [place] [id number] Social History Type Description Quantity Date Captured Comments Alcohol Use Details Unknown Caffeine Use Details Unknown Tobacco Use Status Smoking Status No Information Sex Female Chief Complaint And Reason For Visit No Information Reason For Referral Reason For Referral No Information Plan Of Treatment Date Type Action Status Goal Tobacco cessation counseling completed Goal Tobacco cessation counseling completed History Of Present Illness Encounter Date Complaint History Of Prese nt Illness anaphylaxis LV: 08/29/22She h as anaphylaxis and non-allergic rhinitis. She presents for follow up and to discuss the lab results.AnaphylaxisInterval Episodes: noneHer TY score is -1RhinitisShe is on Flonase 2 SEN daily PRN. Data08/20/22AEC: 100CMP: essentially normalTyrptase 25.4C-Kit Mutation: negative07/20/22Environmental Immunocaps: undetectableAlpha Gal IgE undetectableTotal IgE 89Tryptase 26103/24/21WBC 11.6, neutrophil predominantAbs Eos 200CMP wnl anaphylaxis LV: 07/31/22She h as anaphylaxis and non-allergic rhinitis. She presents for follow up and to discuss the lab results.AnaphylaxisInterval Episodes: noneNo symptoms.Her TY score is -1RhinitisShe is on Flonase 2 SEN daily PRN. Data08/20/22AEC: 100CMP: essentially normalTyrptase 25.4C-Kit Mutation: not yet resulted07/20/22Environmental Immunocaps: undetectableAlpha Gal IgE undetectableTotal IgE 89Tryptase 26103/24/21WBC 11.6, neutrophil predominantAbs Eos 200CMP wnl lab review LV: 07/19/22She h as anaphylaxis and non-allergic rhinitis. She presents for follow up and to discuss the lab results.AnaphylaxisInterval Episodes: noneShe reports nausea and head pruritus. Her TY score is -1RhinitisShe is on Flonase 2 SEN daily.Data07/20/22Environmental Immunocaps: undetectableAlpha Gal IgE undetectableTotal IgE 89Tryptase 26103/24/21WBC 11.6, neutrophil predominantAbs Eos 200CMP wnl reaction AnaphylaxisShlee r eports episodes of pruritus starting in the evening, initially on the palms of the hands and in the genitals prior to generalizing. She will have facial erythema and swelling. She will also have hives and difficulty swallowing and breathing. These symptoms worsen over 15 to 20 minutes. She will go to the ED and has been treated with IM epinephrine and benadryl before being discharged.She has had multiple episodes (4-5 episodes), though they are not frequent. The first episode was in August or September of 2021 about 1 month after she had neck surgery. She had episodes in October, November, Jan/Feb, and April. She takes testosterone injections weekly, but has only had the episodes monthly. She notes the first episode woke her out of bed. More recent episodes have occurred while she is in bed (though not asleep). She does eat meat in her diet. She believes she may have had a tick bite in the past, though none recently.She has an Epipen. RhinitisThe patient has a history of perennial rhinitis with seasonal worsening in spring/fall. The symptoms include rhinorrhea (post), nasal congestion, sneezing w/o ocular pruritus and tearing. Currently, the patient is on cetirizine (zyrtec) 10 mg daily (held x 7 days, but only on for a few days before holding).Maria reports wheezing that she treats with albuterol about twice monthly. She has been on albuterol 4-5 years. She has never been hospitalized for her breathing symptoms. No nocturnal awakenings because of breathing symptoms.PMH: HLD, GERD (on nexium), and as abovePSH: neck surgery, cholecystectomy, hysterectomy, hernia repairMedication Allergies: Meperidine - She reports hivesFHAsthma - sister, nieceNo FH of RA, EVONNETobacco: Current Smoker (3 ppw x 40 years)Occupation: Voucher Examiner/CookEnvironmental HistoryLives in a house w/ central air/forced heat, w/ suspected mold/water damageFlooring in Bedroom: hard flooringPets: dog x 1DataI reviewed outside records available in the EMR01/22/22Abs Eos 200 Functional Status Date Functional Assessmen t No Information Instructions Date Instruction Additional Infor jesus Giving encouragement to exercise Related to Body mass index [BMI] 25.0-25.9, adult [email or web address]/service/try ptaseGene by Gene - Tryptase Copy Number Variation Testing Related to Anaphylaxis, subsequent encounter Giving encouragement to exercise Related to Body mass index [BMI] 25.0-25.9, adult Giving encouragement to exercise Related to Body mass index [BMI] 26.0-26.9, adult - strictly avoid bee f, pork, de la o, and other mammalian meat- you may eat poultry (chicken, turkey), and seafood as tolerated Related to Anaphylaxis, initial encounter - start Flonase 2 sp rays each nostril daily- Please remember to point the nasal spray away from the nasal septum, up and outwards towards the top of the ears on both sides- if nose bleeding occurs, please hold the nasal spray for 2-3 days to allow for healing of the nasal tissue (you may use nasal saline gel or vaseline on a q-tip to help heal the tissue), then restart the nasal spray.- If nose bleeding recurs, please stop the nasal spray and contact our office to set up an appointment for further guidance Related to Chronic rhinitis Giving encouragement to exercise Related to Body mass index [BMI] 25.0-25.9, adult Assessments Type Assessment Date No Information Patient Care Teams Name Effective Dates (start - stop) Status Members No Information
--- OUTSIDE RECORDS SUMMARY | 2024-09-09 15:40 | XMS_ITS | Clinical Summary ---
Author Organization [address] Address [address] [id number] Care Team Providers Care Account Services Representative Name Role Phone Bravo Hernadez MD Unavailable [phone] Perez Jackson MD Unavailable [phone] Vince Reynoso MD Unavailable [phone] Dimas Nascimento MD Unavailable Sabino Cortes MD Unavailable [phone] Sabino Cortes MD Primary Care Provider Allergies [...] (07/13/2021): Added automatically from request for surgery [id number] Cervical disc disorder with radiculopathy 2021 Spinal [...] SARS-CoV-2 Monovalent Vaccination (12+ Yrs) PURPLE 09/10/2020,08/20/2020,08/12/2020 Surgical History Surgery Date Site/Laterality Comments CHOLECYSTECTOMY 03/11/2016 - 03/10/2017 OOPHORECTOMY 03/11/2017 - 03/10/2018 Left NECK SURGERY 03/11/2017 - 03/10/2018 CLEANING OF THE NECK HAND SURGERY 03/11/1994 - 03/10/1995 HERNIA REPAIR DUE TO RUPTURE. 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 Gender Identity Not on file Sexual Orientation Not on file Occupation Industry Job Start Date Job End Date On Disability Not on file Not on file Not on file Obstetrics History Para Term AB IAB SAB Ectopic Multiple Livin g Live Births 3 2 2 1 1 0 0 2 2 Date Outcome GA Total Labor Labor/2nd/3rd Weight Sex Type Anes PTL Phylicia A1 A5 Name Clin 7 Term F Vag-S pont Living 1988 IAB D&C 8 Term M Vag-S pont Living Last Filed Vital Signs Vital Sign Reading Time Taken Comments Blood Pressure 122/76 01/22/2022 11:31 AM HUMAN PERFORMANCE TECHNOLOGIST Pulse 83 01/22/2022 11:31 AM HUMAN PERFORMANCE TECHNOLOGIST Temperature 36 C (96.8 F) 10/25/2021 1:00 PM CDT Respiratory Rate 18 08/18/2021 2:22 PM CDT Oxygen Saturation 99% 10/25/2021 1:00 PM CDT Inhaled Oxygen Concentration - - Weight 72.6 kg (160 lb) 01/22/2022 11:31 AM HUMAN PERFORMANCE TECHNOLOGIST Height 160 cm (5' 3) 01/22/2022 11:31 AM HUMAN PERFORMANCE TECHNOLOGIST Body Mass Index 28.34 01/22/2022 11:31 AM HUMAN PERFORMANCE TECHNOLOGIST Plan of Treatment Health Maintenance Due Date Last Done Comments Hepatitis C Screening 1965 DTaP/Tdap/Td Vaccine (1 - Tdap) 10/26/1978 Hepatitis B Screening 10/26/1985 Pneumococcal vaccine <65 (1 of 2 - PCV) 10/26/1986 Zoster Vaccine (1 of 2) 10/26/2017 Cervical Cancer Screening 07/31/2022 07/31/2021 Regular Well Visit/Exam 18-64 11/03/2022 11/03/2021 Depression Screening 01/22/2023 01/22/2022, 11/03/2021, 07/13/2021, Additional history exists Covid-19 Vaccine (5 - 2023-2 5 season) 2023 03/09/2021, 09/10/2020, 08/20/2020, Additional history exists Influenza Vaccine (Season Ended) 2024 01/01/2023, 12/09/2021, 12/09/2020, Additional history exists Breast Cancer Screening-Mammogram 03/19/2025 03/19/2024, 01/25/2023, 12/14/2021 Lung Cancer Screening 03/19/2025 03/19/2024 , 01/25/2023, 12/14/2021 Colon Cancer Screening-Colonoscopy 03/11/20332023, 07/19/2021 Procedures Procedure Name Priority Date/Time Associated Diagnosis Comments CT LUNG CANCER SCREENING Schedule Routine, Read Routine (OP Routine) 03/19/2024 SCREENING MAMMOGRAM 2D BILATERAL Schedule Routine, Read Routine (OP Routine) 03/19/2024 COLONOSCOPY Routine 03/11/2023 2:49 PM HUMAN PERFORMANCE TECHNOLOGIST PAP AND HIGH RISK HPV, REFLEX TO [...] Laterality Modality Chest N/A Computed Tomogra phy Historical Provider MD HUGHES CT PROCEDURES Final R esult * Pap and High Risk HPV, reflex to Genotyping (07/31/2021 9:35 AM CDT) Thin prep (Pap test) 07/31/2021 9:35 AM CDT 07/31/2021 9:35 AM CDT Narrative PATHOLOGY CH - 08/03/2021 10:40 AM CDT [facility] Department of Pathology [address] [place] [address] Final Report with Addendum Note to [...] the details. Patient Name: ALEXANDRA HICKS Address: [address] [place] [address] Gender: F : 1965 (Age: 55) Service: Laboratory Location: Lab [facility] #: [id number] Patient Type: Ref Lab Taken: 07/31/2021 Received: 07/31/2021 Accessioned:: 08/01/2021 [...] determined by the Surgical Pathology Department at [facility] as part of an ongoing quality improvement specialist program and in compliance with federally mandated [...] characteristics determined by the Surgical Pathology Department [facility]. It has not been cleared or approved by the U. S. Food and Drug Administration. Emily Stacy MD LAB CYTOLOGY ORDERABLES Final Result PATHOLOGY [address] [place] [address] * COLONOSCOPY (07/19/2021 2:59 PM CDT) Anatomical Region Laterality Modality Other Narrative Procedure Note Ulises Cazares MD - 07/19/2021 2:59 PM CDT [facility] Endoscopy Lab Patient Name: Alexandra Hicks Procedure [...] CRNA (Anesthesia Staff), Kim Antonio RN, Mohit, Fittings Finisher Referring MD: Anuj Chao M.D. Medicines: Monitored [...] bowel preparation was evaluated using the BBPS ([place] Bowel Preparation Scale) with scores of:Right Colon [...] Recently Relevant to Health Maintenance Insurance [place] MEDICARE [facility] IDPA Care Teams Account Services Representative Relationship Specialty Start Date End Date Sabino Cortes MD [facility] [address] PCP - General Gastroenterology 10/29/23 Bravo Hernadez MD [address] [place] [address] Consulting Physician Family Medicine 05/06/20 Perez Jackson MD [address] [place] [address] Consulting Physician Neurosurgery 08/18/21 Vince Reynoso MD [address] [place] [address] Consulting Physician Pain Management 10/06/21 Dimas Nascimento MD [address] [place] [address] Consulting Physician Cardiology 02/11/22 Sabino Cortes MD [address] [place] [address] Consulting Physician Gastroenterology 01/29/23
--- OUTSIDE RECORDS SUMMARY | 2024-09-09 15:40 | XMS_ITS | Encounter Summary ---
Author Organization [facility] Address [address] [place] [address] Care Team Providers Care Allergy Physician Name Role Phone Sabino Cortes MD Primary Care Provider [phone] Regan Jang MD Unavailable [phone] Reason for Referral * Consultation (Routine) - Closed Specialty Diagnoses / Procedures Referred By Anurag t Referred To Contact Neurological Surgery Diagnoses Low back pain, unspecified back pain laterality, unspecified chronicity, unspecified whether sciatica present Sabino Cortes MD [address] [place] [phone] Phone: tel: fax: [facility] - Neurosurgery [address] [place] [phone] Phone: tel: fax: Referral ID Status Reason Start Date Expiration Date V isits Requested Visits Authorized [id number] Closed Specialty Services Required 01/15/2024 01/14/2025 1 1 MENT CONTROL SPECIALIST Encounter Details Date Type Department Care Team (Latest Contact Info) Description 01/15/2024 Transcribe Orders [facility] - Centralized Scheduling [facility] [place] [phone] [place] [address] [place] [phone] Low back pain, unspecified back pain laterality, unspecified chronicity, unspecified whether sciatica present Social History Tobacco Use Types Packs/Day Years Used Date Smoking Tobacco: Never Assessed Comments Unknown Sex and Gender Information Value Date Recorded Sex Assigned at Not on file Legal Sex Female 8:49 AM CDT Gender Identity Not on file Sexual Orientation Not on file documented as of this encounter Plan of Treatment Scheduled Referrals Name Type Priority Associated Diagnoses Order Schedule AMB REFERRAL TO NEUROSURGERY Outpatient Referral Routine Low back pain, unspecified back pain laterality, unspecified chronicity, unspecified whether sciatica present 1 Occurrences starting 01/15/2024 until 01/14/2025 documented as of this encounter Visit Diagnoses Diagnosis Low back pain, unspecified back pain laterality, unspecified chronicity, unspecified whether sciatica present- Primary documented in this encounter Care Teams Allergy Physician Relationship Specialty Start Date End Date Sabino Cortes MD [address] [place] [address] PCP - General Gastroenterology 04/10/24 Regan Jang MD [address] [place] [address] Surgeon Neurological Surgery 06/05/24 documented as of this encounter
--- OUTSIDE RECORDS SUMMARY | 2024-09-09 15:40 | XMS_ITS | Data Portability ---
Author Organization [facility], Main Office Address [address] [place] [address] Assessment No assessment recorded. Plan of Treatment Reminders Order Date Submit Date Provider Last Modified By Organization Details Last Modified Time Details Appointments Procedure 60 2024 08:00A Madyson Gaytan MD Not available Not available Not available Lab None recorded. Referral None recorded. Procedures colonosco py screening (PROC) 2024 025 [facility] (Pre-Screen), [address] [place], [address], 08/25/2024 16:25:22 Surgeries None recorded. Imaging None recorded. Medication Orders None recorded. Patient TargetsNo targets recorded. Patient InstructionsNo instructions recorded. Reason for Referral None Reported. Procedures Surgical History Date Name Laterality Status Provider Name and Address Organization Details Recorded Time left oophorectomy completed Andreea Toney MA [facility] 08/17/2024 10:35:03 repair of stress incontinence by suprapubic sling completed Larisa Toney MA [facility] 08/17/2024 10:35:28 Cholecystectomy completed Larisa Toney MA [facility] 08/17/2024 10:35:38 procedure on ovary completed Noemi Toney MA [facility] 08/17/2024 10:36:03 hernia repair completed Larisa Toney MA [facility] 08/17/2024 10:36:13 Imaging Results None recorded. Procedure Notes None recorded. Medical Equipment None Reported. Allergies Allergen ID Allergen Name Allergen Category Reaction Reaction Severity Criticality Documentation Date Start Date Code Code System Note Provider Name and Address Organization Details Recorded Time 21966 Demerol medicatio n Not available Not available Not available 08/17/2024 70444 1 RxNorm DAVID Lawrence, [place] [facility] 5 10:28:21 Medications Name Sig Start Date Stop Date Status Note LastModified by Organization Details LastModified Time silver sulfadiazine 1 % topical cream APPOLY A 1.5 MM THICK LAYER TO ENTIRE BURN AREA TWICE DAILY active Not Available Not Available No t Available cetirizine 10 mg tablet TAKE 1 TABLET BY MOUTH DAILY active Not Available Not Available No t Available oxybutynin chloride ER 10 mg tablet,extend ed release 24 hr TAKE 1 TABLET BY MOUTH EVERY DAY active Not Available Not Available No t Available benzonatate 200 mg capsule TAKE 1 CAPSULE BY MOUTH THREE TIMES DAILY active Not Available Not Available No t Available valacyclovir 1 gram tablet TAKE 1 TABLET BY MOUTH EVERY DAY active Not Available Not Available No t Available hydrocodone 5 mg-acetaminop hen 325 mg tablet TAKE 1 TABLET BY MOUTH TWICE DAILY NEEDED active Not Available Not Available No t Available fluconazole 200 mg tablet TAKE 1 TABLET BY MOUTH EVERY 72 HOURS active Not Available Not Available No t Available phentermine 15 mg capsule TAKE 1 CAPSULE BY MOUTH EVERY DAY active Not Available Not Available No t Available ciprofloxacin 250 mg tablet TAKE 1 TABLET BY MOUTH EVERY 12 HOURS FOR 7 DAYS active Not Available Not Available No t Available estradiol 0.05 mg/24 hr semiweekly transdermal patch APPLY 1 PATCH TOPICALLY TO THE SKIN 2 TIMES A WEEK active Not Available Not Available No t Available ciprofloxacin 500 mg tablet TAKE 1 TABLET BY MOUTH EVERY 12 HOURS FOR 7 DAYS active Not Available Not Available No t Available sulfamethoxaz ole 800 mg-trimethopr im 160 mg tablet TAKE 1 TABLET BY MOUTH EVERY 12 HOURS active Not Available Not Available No t Available estradiol 1 mg tablet TAKE 1 TABLET BY MOUTH DAILY active Not Available Not Available No t Available esomeprazole magnesium 40 mg capsule,delay ed release TAKE 1 CAPSULE BY MOUTH EVERY DAY BEFORE A MEAL active Not Available Not Available No t Available albuterol sulfate HFA 90 mcg/actuation aerosol inhaler INHALE 2 PUFFS BY MOUTH FOUR TIMES DAILY NEEDED active Not Available Not Available No t Available diazepam 5 mg tablet TAKE 1 TABLET BY MOUTH EVERY DAY AT BEDTIME active Not Available Not Available N ot Available rosuvastatin 5 mg tablet TAKE 1 TABLET BY MOUTH EVERY DAY active Not Available Not Available No t Available topiramate 50 mg tablet TAKE 1 TABLET BY MOUTH TWICE DAILY active Not Available Not Available No t Available nitrofurantoi n monohydrate/m acrocrystals 100 mg capsule TAKE 1 CAPSULE BY MOUTH EVERY 12 HOURS FOR 7 DAYS active Not Available Not Available No t Available Vitals Date Recorded Body weight Body mass index (BMI) Body height Heart rate Body temperature Respiratory rate Systolic blood pressure Diastolic blood pressure Provider Name and Address Organization Details Last Updated DateTime 5 67658.2 2 g 27.3 kg/m2 160.02 cm 74 /min 98 [degF] 98 /min 120 mm[Hg] 72 mm[Hg] Carolann Platt [facility] 5 15:54:55 Social History Question Answer Notes LastModified by Organizat ion Details LastModified Time Tobacco Smoking Status Current Every Day Smoker DAVID Lawrence, [facility] 08/17/2024 10:34:11 What Is Your Level Of Caffeine Consumption? Moderate Information not available 08/17/2024 In The 14 Days Before Symptom Onset, Have You Had Close Contact With A Laboratory-confirm ed COVID-19 While That Case Was Ill? No Information n ot available 08/17/2024 In The 14 Days Before Symptom Onset, Have You Had Close Contact With A Person Who Is Under Investigation For COVID-19 While That Person Was Ill? No Information not available 08/17/2024 What Type Of Diet Are You Following? REGULAR Information n ot available 08/17/2024 Are There Any Guns Present In Your Home? No Information not available 08/17/2024 Do You Use Your Seat Belt Or Car Seat Routinely? Yes Information not available 08/17/2024 Do You Have Smoke And Carbon Monoxide Detectors In Your Home? Yes Information not available 08/17/2024 How Much Tobacco Do You Smoke? 2 PPW Information not available 08/17/2024 Do You Use Sunscreen Routinely? No Information not available 08/17/2024 How Many Years Have You Smoked Tobacco? 35 Information not available 08/17/2024 Have You Recently Traveled Abroad? No Information not available 08/17/2024 Do You Have Any Dietary Restrictions? [place] [address] Information not available 08/17/2024 Sex: Unknown Functional Status Question Answer Note LastModified by Organizat ion Details LastModified Time Do you use any illicit or recreational drugs? No [place] [address] Information not available 08/17/2024 What is your level of alcohol consumption? None [place] [address] Information not available 08/17/2024 What is your exercise level? Occasional [facility] Information not available 08/17/2024 Mental Status None recorded. Family History Relationship Description Onset Age of this Age Resolved Age Notes LastModified by Organization Details LastModified Time Mother Malignant tumor of cervix [facility] Not available 2024 10:29:16 Mother Essential hypertension [facility] Not available 11/2024 10:29:30 Sister Malignant tumor of cervix [facility] Not available 2024 10:29:43 Maternal Grandmother Malignant tumor of breast [facility] Not available 2024 10:30:51 Maternal Grandmother Malignant tumor of colon [facility] Not available 2024 10:32:09 Maternal Aunt Malignant tumor of breast [facility] Not available 2024 10:30:51 Maternal Aunt Malignant tumor of colon [facility] Not available 2024 10:32:09 Unspecified Relation Malignant tumor of colon [facility] Not available 2024 10:32:09 Medical History Condition Response HEADACHES/MIGRAINES Y ANXIETY DISORDER Y GERD/NAUSEA Y ALLERGIES/HAYFEVER Y DEPRESSION (INCLUDING POST ) Y HYPERTENSION Y HIGH CHOLESTEROL / HYPERLIPIDEMIA Y Gynecological HistoryNo gynecological history recorded. Obstetrics History GPAL:G 0 P 0 0 0 0 Past Encounters Encounter ID Performer Location Encounter Start Date Encounter Closed Date Diagnosis/Indication Diagnosis SNOMED-CT Code Diagnosis ICD10 Code Diagnosis Note [id number] Elmer Gaytan MD [facility] [address] [facility] [place] [address] 08/25/2024 15:22:43 08/25/2024 16:23:13 Family history of cancer of colon 958351576 Z80.0 Health Concerns Section Related Observation LastModified by Organization Detai ls LastModified Time None Recorded Concern Status LastModified by Organization Details LastModified Time None Recorded Advance Directives Directive None Recorded Payers Insurance Date Sequence Insurance Name Policy Number Policy Mayer Covered Member ID Mayer Member ID Guarantor Name 01/07/2023 1 [facility] [place] [id number] Davin Kurt [id number] Alexandra Hicks 08/25/2024 1 [facility] (MEDICARE REPLACEMENT/A DVANTAGE - HMO) [id number] Alexandra Hicks [id number] Alexandra Hicks Notes Date Note Type Note Provider Name and Address Organization Details Recorded Time 08/25/2024 text/html 58yo FH CRC, last colon 4 years ago, polyps found. No symptoms Elmer Gaytan MD [address] [place] [address], [address], [place], [address], [facility] 08/25/2024 16:19:27 OBGyn Episode No OBEpisode recorded.
== END 2024-09-09 15:32 | disposition home or self-care (01) ==
PROVIDERS: PCP Internal Medicine Gastroenterology; Visit Provider Internal Medicine Gastroenterology
DX: M47.892 Other spondylosis, cervical region (principal); Z98.890 Other specified postprocedural states
CPT/HCPCS: 72141